=== PATIENT | female | born 1935 | race Caucasian/White ===

== ENCOUNTER 2018-03-03 14:13 | Emergency (ER) | payer MEDICARE, BC ==
[2018-03-03 14:22] VITALS: PULSE 98
--- NOTE | 2018-03-03 15:09 | ED ---
Fall HPI - General Chief Complaint: Fall Stated Complaint: fall/hit head Time Seen by Provider: 03/03/18 14:59 Source: patient Mode of arrival: ambulatory - History of Present Illness Initial Comments: This a pleasant 83-year-old female who fell in her garage at home after tripping and struck the back of her head on cement. Patient had no loss of consciousness, no vomiting episodes, patient recalls the entire event. There is no amnesia. Patient denies any significant headache but does have a swollen area on her scalp. Patient denies any neck pain. No chest pain or shortness of breath. No abdominal pain. No arm or leg pain. Patient states she did bump her hip has no pain in that area. Patient ambulatory without difficulty. Patient was able get up on her own. Patient here with a daughter who brought her here for a checkup. Patient does take a daily aspirin. Patient denies any vision or hearing disturbance. No paresthesias. - Related Data Home Medications Medication Instructions Recorded Confirmed Levothyroxine Sodium [Synthroid] 88 mcg PO DAILY 09/17/14 03/03/18 Ubidecarenone [Co Q-10] 1 tab PO DAILY 09/17/14 03/03/18 Aspirin 81 mg PO DAILY 05/03/15 03/03/18 Calcium Carbonate [Calcium] 600 mg PO DAILY 05/03/15 03/03/18 Lisinopril-Hctz 10-12.5 mg 1 tab PO DAILY 05/03/15 03/03/18 [Zestoretic 10-12.5] Cholecalciferol [Vitamin D3] 400 unit PO DAILY@1200 05/04/15 03/03/18 Multivitamins, Thera [Multivitamin 1 tab PO DAILY@1200 05/04/15 03/03/18 (formulary)] Allergies Allergy/AdvReac Type Severity Reaction Status Date / Time Sulfa (Sulfonamide Allergy Unknown Verified 03/03/18 14:57 Antibiotics) Iodinated Contrast- Oral and AdvReac Abdominal Verified 03/03/18 14:57 IV Dye Pain [Iodinated Contrast Media - IV Dye] shellfish derived AdvReac Abdominal Verified 03/03/18 14:57 Pain Review of Systems ROS Statement: Those systems with pertinent positive or pertinent negative responses have been documented in the HPI. ROS Other: All systems not noted in ROS Statement are negative. Past Medical History Past Medical History: Dementia, GERD/Reflux, Hyperlipidemia, Hypertension, Thyroid Disorder Additional Past Medical History / Comment(s): mobitz type 2 second degree heart block, vertigo other hx per old chart: incont of urine, hiatal hernia, rectocele /cystocele, MURMUR, MITRAL REGURGITATION,HIATAL HERNIA,EARLY DEMENTIA, DIVERTICULAR DISEASE, WAS TOLD 2 YEARS AGO HAD VERY BEGINNINGS OF GLAUCOMA History of Any Multi-Drug Resistant Organisms: None Reported Past Surgical History: Bladder Surgery, Heart Catheterization, Hysterectomy Past Anesthesia/Blood Transfusion Reactions: No Reported Reaction Additional Past Anesthesia/Blood Transfusion Reaction / Comment(s): 40 YEARS AGO BLOOD TRANSFUSION AFTER CHILDBIRTH, VERTIGO Past Psychological History: No Psychological Hx Reported Smoking Status: Never smoker Past Alcohol Use History: None Reported Past Drug Use History: None Reported Additional History: Reviewed - Past Family History Father Family Medical History: Cancer Additional Family Medical History / Comment(s): COLON CANCER Mother Family Medical History: Congestive Heart Failure (CHF), Myocardial Infarction ( [place]) General Exam - General Exam Comments Initial Comments: Well-developed, well-nourished 83-year-old female in no acute distress Limitations: no limitations General appearance: alert, in no apparent distress Head exam: Present: other (Patient does have a scalp hematoma noted to the vertex of her scalp near the occipital area. There is no break in skin integrity. Patient has no crepitus or step-off. Remainder of the head is normocephalic/atraumatic) Eye exam: Present: normal appearance, PERRL, EOMI. Absent: scleral icterus, conjunctival injection, periorbital swelling, periorbital tenderness ENT exam: Present: normal exam, normal oropharynx, mucous membranes moist, TM's normal bilaterally. Absent: normal external ear exam Neck exam: Present: normal inspection. Absent: tenderness, meningismus, lymphadenopathy Respiratory exam: Present: normal lung sounds bilaterally. Absent: respiratory distress, wheezes, rales, rhonchi, stridor Cardiovascular Exam: Present: regular rate, normal rhythm, normal heart sounds. Absent: systolic murmur, diastolic murmur, rubs, gallop, clicks GI/Abdominal exam: Present: soft, normal bowel sounds. Absent: distended, tenderness, guarding, rebound, rigid Extremities exam: Present: normal inspection, full ROM, normal capillary refill. Absent: tenderness, pedal edema, joint swelling, calf tenderness Back exam: Present: normal inspection Neurological exam: Present: alert, oriented X3, CN II-XII intact, normal gait, other (Finger to nose and heel to correia are normal. No pronator drift). Absent : altered, abnormal gait, motor sensory deficit Psychiatric exam: Present: normal affect, normal mood Skin exam: Present: warm, dry, intact, normal color. Absent: rash Course Vital Signs 03/03/18 14:16 Temperature 97.3 F L Pulse Rate 98 Respiratory 20 Rate Blood Pressure 195/88 O2 Sat by Pulse 98 Oximetry - Reevaluation(s) Reevaluation #1: 03/03/18 16:20 Patient stable, neurologically intact, no distress Medical Decision Making - Medical Decision Making Computed tomography scan of the brain and cervical spine reveals no acute pathology--other than the scalp hematoma.. There is a questionable thyroid nodule on the left Return and follow-up parameters discussed Disposition Clinical Impression: Closed head injury without loss of consciousness, Hematoma of scalp, Thyroid nodule Disposition: HOME SELF-CARE Condition: Good Instructions: Fall Prevention for Older Adults (ED), Head Injury (ED) Additional Instructions: Stay with family for the next 24 hours. Return to the ER immediately if any signs or symptoms worsen. Return to the ER at once if the symptoms worsen or problems or difficulties arise. Referrals: Polo Jones MD [Primary Care Provider] - 1-2 days Time of Disposition: 16:21
--- NOTE | 2018-03-03 16:05 | CT ---
EXAMINATION TYPE: CT brain auryine wo con DATE OF EXAM: 03/03/2018 COMPARISON: Brain 05/04/2015 HISTORY: 83-year-old female complains of fall with blow to back of head today. Pain. CT DLP: 1193.1 mGycm Automated exposure control for dose reduction was used. Technique: Examination of the head was done in axial plane without intravenous contrast. Coronal and sagittal reconstructions performed. CT of the cervical spine was obtained in axial plane without intravenous injection of contrast mater ial. Coronal and sagittal reformatted images were obtained from the axial views for evaluation of f ractures, spinal alignment and canal. FINDINGS: Head: There is no evidence of acute intracranial hemorrhage, acute ischemic changes, mass, mass-effect, or extra-axial fluid collection. There is no effacement of cerebral sulci or basal subarachnoid cister ns. There is no hydrocephalus. There is no midline shift. Mott-white matter distinction is preserv ed. There is mild generalized supratentorial volume loss and mild patchy white matter hypodensities in varinder th cerebral hemispheres. There is a posterior scalp contusion along the vertex. No underlying calvarial fracture. Orbits and g lobes are intact. Paranasal sinuses and mastoid air cells are well pneumatized. Cervical spine: No craniocervical junction abnormality, predental space widening, or prevertebral soft tissue swellin g. Normal alignment of the cervical spine. No acute fracture identified. Moderate disc/endplate degenerative change at C5-C6 with disc osteophyte complex contributing to mild spinal canal stenosis. Ayme-mp-qrccikti bilateral neuroforaminal stenosis at this level. Scattered facet and uncovertebral joint degenerative change mid to lower cervical spine. Enlargement of the left lobe of the thyroid gland possibly with an underlying 2.8 cm thyroid nodule. Sagittal and coronal reformatted images confirm above findings. COMBINED IMPRESSION: 1. Scalp contusion along the right posterior vertex. No underlying calvarial fracture or acute intrac ranial abnormality seen. Similar mild atrophy and changes of chronic small vessel ischemic disease. 2. No acute fracture or malalignment of the cervical spine. Moderate spondylotic change at C5-C6. 3. Possible underlying 2.8 cm left thyroid nodule. Dedicated thyroid ultrasound could further evaluat e.
[2018-03-03 16:32] VITALS: BP 162/75; RESP 18; TEMP 96
== END 2018-03-03 16:31 | disposition home or self-care (01) ==
LOC: EC 14:13
DX: S00.03XA Contusion of scalp, initial encounter (principal); E04.1 Nontoxic single thyroid nodule; Z79.82 Long term (current) use of aspirin; Z79.899 Other long term (current) drug therapy; Z88.2 Allergy status to sulfonamides; Z91.041 Radiographic dye allergy status; Z91.013 Allergy to seafood; W10.9XXA Fall (on) (from) unspecified stairs and steps, initial encounter; Y92.009 Unspecified place in unspecified non-institutional (private) residence as the place of occurrence of the external cause
CPT/HCPCS: 70450; 72125; 99283

== ENCOUNTER → 2018-04-13 | Outpatient (CLI) | payer MEDICARE, BC ==
--- NOTE | 2018-04-15 11:57 | P.ARTDOP ---
Arterial Doppler LOWER EXTREMITY ARTERIAL DOPPLER: DATE OF SERVICE: 04/13/2018 Reason for study: Bilateral leg pain. Doppler waveforms: Multiphasic bilaterally throughout. Pulse volume recording: Normal configuration. Pressure gradients: None. Ankle-brachial indices: Greater than 1 bilaterally. Toe pressures: [] on the right, [] on the left Impression: Normal study.
== END | disposition home or self-care (01) ==
LOC: RADUSWWP 10:11
PROVIDERS: ATTEND Family Medicine
DX: M79.604 Pain in right leg (principal); M79.605 Pain in left leg; R25.2 Cramp and spasm
CPT/HCPCS: 93923

== ENCOUNTER 2018-08-07 12:11 | Day surgery (SDC) | payer MEDICARE, BC ==
[2018-08-07 12:44] VITALS: TEMP 98.4
[2018-08-07 13:52] VITALS: BP 150/74; PULSE 76; RESP 16
--- NOTE | 2018-08-07 14:17 | US ---
ULTRASOUND GUIDED FNA THYROID BIOPSY: CLINICAL HISTORY: Request for FNA of 3 left-sided thyroid nodules FINDINGS: The procedure was explained to the patient. The risks, complications, benefits and alternatives were discussed and any questions were answered. Informed consent was obtained. Patient was placed supin e on the ultrasound table and prepped and draped in the usual sterile fashion. Utilizing a 25 gauge needle, five passes were made into the requested 3 left thyroid nodules. Patient was stable throughout the procedure. Pathology is pending. All elements of maximal barrier technique were utilized. IMPRESSION: 1. Successful ultrasound guided FNA thyroid biopsy.
== END 2018-08-07 14:00 | disposition home or self-care (01) ==
LOC: RADPROMAIN 12:11
PROVIDERS: ATTEND Otolaryngology
DX: E04.1 Nontoxic single thyroid nodule (principal)
CPT/HCPCS: 10022; 76942; 88173; 88305

== ENCOUNTER → 2019-05-24 | Outpatient (CLI) | payer MEDICARE, BC ==
[2019-05-24 11:10] LABS: Basophils % (A) 1 %; Eosinophils # (A) 0.2 k/uL (0-0.7); Eosinophils % (A) 3 %; HCT 43.6 % (34.0-46.0); HGB 14.3 gm/dL (11.4-16.0); Lymphocytes # (A) 1.6 k/uL (1.0-4.8); Lymphocytes % (A) 28 %; MCH 28.9 pg (25.0-35.0); MCHC 32.8 g/dL (31.0-37.0); MCV 88.1 fL (80.0-100.0); Mean Platelet Volume 7.4; Monocytes # (A) 0.3 k/uL (0-1.0); Monocytes % (A) 5 %; Neutrophils # (A) 3.4 k/uL (1.3-7.7); Neutrophils % (A) 61 %; Platelet Count 308 k/uL (150-450); RBC 4.95 m/uL (3.80-5.40); RDW 14.8 % (11.5-15.5); WBC 5.6 k/uL (3.8-10.6)
--- NOTE | 2019-05-24 14:04 | XR ---
EXAMINATION TYPE: XR chest 2V DATE OF EXAM: 05/24/2019 COMPARISON: 05/06/2015 HISTORY: Shortness of breath for 4 months TECHNIQUE: Frontal and lateral views of the chest are obtained. FINDINGS: There is no focal air space opacity, pleural effusion, or pneumothorax seen. There is a pa rtial intrathoracic stomach and seen. Multilead left-sided cardiac device is present. The cardiac mello houette size is within normal limits. Increased anterior posterior diameter of the chest an retroster nal airspace relate to underlying COPD. The osseous structures are intact. Mild multilevel degenerati ve changes of the spine are seen. IMPRESSION: No acute cardiopulmonary process. Partial intrathoracic stomach and underlying COPD or c hronic.
== END | disposition home or self-care (01) ==
LOC: RADXRMAIN 09:52
PROVIDERS: ATTEND Nurse Practitioner Adult Health
DX: R06.02 Shortness of breath (principal); E03.9 Hypothyroidism, unspecified; Z91.041 Radiographic dye allergy status
CPT/HCPCS: 36415; 71046; 84443; 85025

== ENCOUNTER 2020-06-26 17:15 | Emergency (ER) | payer MEDICARE, BC ==
[2020-06-26] MEDS ORDERED: MECLIZINE 12.5 MG TAB PO STA (18:03)
[2020-06-26] MEDS ORDERED: SODIUM CHLORIDE 0.9% 500 ML 500 ML IV STA (18:03)
[2020-06-26 18:13] LABS: Basophils # (A) 0.1 k/uL (0-0.2); Basophils % (A) 1 %; Eosinophils # (A) 0.3 k/uL (0-0.7); Eosinophils % (A) 4 %; HCT 45.3 % (34.0-46.0); HGB 14.4 gm/dL (11.4-16.0); Lymphocytes # (A) 1.9 k/uL (1.0-4.8); Lymphocytes % (A) 31 %; MCH 28.5 pg (25.0-35.0); MCHC 31.8 g/dL (31.0-37.0); MCV 89.8 fL (80.0-100.0); Mean Platelet Volume 7.5; Monocytes # (A) 0.4 k/uL (0-1.0); Monocytes % (A) 7 %; Neutrophils # (A) 3.4 k/uL (1.3-7.7); Neutrophils % (A) 55 %; Platelet Count 291 k/uL (150-450); RBC 5.04 m/uL (3.80-5.40); RDW 13.4 % (11.5-15.5); WBC 6.2 k/uL (3.8-10.6)
[2020-06-26 18:14] VITALS: RESP 16
[2020-06-26 18:17] LABS: INR 0.9 (<1.2); Prothrombin Time 9.8 sec (9.0-12.0)
[2020-06-26 18:21] LABS: Albumin 4.3 g/dL (3.5-5.0); Calcium 10.1 mg/dL (8.4-10.2); Total Bilirubin 0.4 mg/dL (0.2-1.3); Total Protein 7.1 g/dL (6.3-8.2)
--- NOTE | 2020-06-26 18:27 | ED ---
Dizziness HPI - General Chief Complaint: Dizziness Stated Complaint: Dizziness Time Seen by Provider: 06/26/20 17:34 Source: patient Mode of arrival: wheelchair Limitations: no limitations - History of Present Illness Initial Comments: 85-year-old female past history of vertigo, heart block with permanent pacemaker placement, hypertension presents emergency room with reported dizziness. Patient states that she had a little bit of room spinning sensation yesterday. She woke this morning and felt well. Took a nap around noon when she woke up from her nap she had significant sensation that she was off balance when she ambulated. Patient reports to a history of vertigo. Last episode was approximately 15 years ago. She does not remember it being this severe. Admits to nausea without vomiting. No recent blunt head trauma. No headaches or vi sual changes. No unilateral numbness or weakness. No history of CVA or TIA. Patient denies any speech difficulties. Patient had sudden onset of symptoms. She has surges in which she takes daily. Denies taking any additional medications for her symptoms. Denies any chest pain or shortness of breath. No fevers or chills. No other alleviating, leasing coordinator modifying factors - Related Data Home Medications Medication Instructions Recorded Confirmed Levothyroxine Sodium [Synthroid] 88 mcg PO DAILY 09/17/14 08/07/18 Ubidecarenone [Co Q-10] 1 tab PO DAILY 09/17/14 08/07/18 Aspirin 81 mg PO DAILY 05/03/15 08/07/18 Calcium Carbonate [Calcium] 600 mg PO DAILY 05/03/15 08/07/18 Lisinopril-Hctz 10-12.5 mg 1 tab PO DAILY 05/03/15 08/07/18 [Zestoretic 10-12.5] Cholecalciferol [Vitamin D3] 400 unit PO DAILY@1200 05/04/15 08/07/18 Multivitamins, Thera [Multivitamin 1 tab PO DAILY@1200 05/04/15 08/07/18 (formulary)] Magnesium 400 mg PO DAILY 07/29/18 08/07/18 Pravastatin Sodium [Pravachol] 40 mg PO HS 08/07/18 08/07/18 Previous Rx's Medication Instructions Recorded Meclizine [Antivert] 12.5 mg PO Q8HR PRN #20 tablet 06/26/20 Allergies Allergy/AdvReac Type Severity Reaction Status Date / Time Sulfa (Sulfonamide Allergy Unknown Verified 06/26/20 17:28 Antibiotics) Iodinated Contrast Media AdvReac Abdominal Verified 06/26/20 17:28 [Iodinated Contrast Media - Pain IV Dye] shellfish derived AdvReac Abdominal Verified 06/26/20 17:28 Pain Review of Systems ROS Statement: Those systems with pertinent positive or pertinent negative responses have been documented in the HPI. ROS Other: All systems not noted in ROS Statement are negative. Past Medical History Past Medical History: Dementia, GERD/Reflux, Hyperlipidemia, Hypertension, Thyroid Disorder Additional Past Medical History / Comment(s): mobitz type 2 second degree heart block, vertigo other hx per old chart: incont of urine, hiatal hernia, rectocele/cystocele, MURMUR, HIATAL HERNIA,EARLY DEMENTIA, WAS TOLD 2 YEARS AGO HAD VERY BEGINNINGS OF GLAUCOMA History of Any Multi-Drug Resistant Organisms: None Reported Past Surgical History: Bladder Surgery, Heart Catheterization, Hysterectomy, Pacemaker Additional Past Surgical History / Comment(s): pacemaker-2014 Past Anesthesia/Blood Transfusion Reactions: No Reported Reaction Additional Past Anesthesia/Blood Transfusion Reaction / Comment(s): 40 YEARS AGO BLOOD TRANSFUSION AFTER CHILDBIRTH, VERTIGO Type of Cardiac Device: Permanent Pacemaker Device Placement Date:: 2014 Past Psychological History: No Psychological Hx Reported Smoking Status: Former smoker Past Alcohol Use History: None Reported Past Drug Use History: None Reported - Past Family History Father Family Medical History: Cancer Additional Family Medical History / Comment(s): COLON CANCER Mother Family Medical History: Congestive Heart Failure (CHF), Myocardial Infarction ([place]) General Exam Limitations: no limitations Course Vital Signs 06/26/20 06/26/20 06/26/20 17:25 18:12 19:28 Temperature 98.3 F Pulse Rate 78 81 Pulse Rate [ 78 Manager Provider Relations ] Respiratory 18 16 Rate Blood Pressure 150/78 163/83 Blood Pressure 155/74 [Left Arm Sitting] Blood Pressure 155/78 [Left Arm Standing] Blood Pressure 154/70 [Left Arm Supine] O2 Sat by Pulse 97 96 Oximetry 06/26/20 19:50 Temperature 98.2 F Pulse Rate 79 Pulse Rate [ Manager Provider Relations ] Respiratory 16 Rate Blood Pressure 141/89 Blood Pressure [Left Arm Sitting] Blood Pressure [Left Arm Standing] Blood Pressure [Left Arm Supine] O2 Sat by Pulse 95 Oximetry EKG Findings - EKG Comments: EKG Findings:: EKG demonstrates atrial sensed ventricularly paced rhythm with a rate of 75. MT interval 138. QRS 170. QTC 495. No acute ST segment elevations or depressions Medical Decision Making - Medical Decision Making Upon arrival patient is placed into room 6. A thorough history and physical exam was performed. Peripheral IV is established. Laboratory studies were conducted. Patient was given a dose of meclizine. CT of the patient's brain was performed without contrast as patient does have a contrast ALLERGY. Laboratory studies demonstrated a creatinine 1.2. She is near the patient's baseline. CT of the patient's brain demonstrates her cerebral atrophy with no acute intracranial process. The patient is reevaluated. She is able to ambulate. Orthostatics were performed which were negative. The patient reports a marked improvement in her symptoms. She feels comfortable going home at this time. Patient provided with a small perception for meclizine. Take medications as directed only for dizziness. Follow-up with her primary care doctor within 2-4 days. Return to emergency room for any new or worsening symptoms. Patient was in agreement with this plan and she was discharged home in good and stable condition - Lab Data Result diagrams: 06/26/20 18:06 06/26/20 18:06 Lab Results 06/26/20 06/26/20 06/26/20 Range/Units 18:06 18:06 18:06 WBC 6.2 (3.8-10.6) k/uL RBC 5.04 (3.80-5.40) m/uL Hgb 14.4 (11.4-16.0) gm/dL Hct 45.3 (34.0-46.0) % MCV 89.8 (80.0-100.0) fL MCH 28.5 (25.0-35.0) pg MCHC 31.8 (31.0-37.0) g/dL RDW 13.4 (11.5-15.5) % Plt Count 291 (150-450) k/uL Neutrophils % 55 % Lymphocytes % 31 % Monocytes % 7 % Eosinophils % 4 % Basophils % 1 % Neutrophils # 3.4 (1.3-7.7) k/uL Lymphocytes # 1.9 (1.0-4.8) k/uL Monocytes # 0.4 (0-1.0) k/uL Eosinophils # 0.3 (0-0.7) k/uL Basophils # 0.1 (0-0.2) k/uL PT 9.8 (9.0-12.0) sec INR 0.9 (<1.2) Sodium 139 (137-145) mmol/L Potassium 4.0 (3.5-5.1) mmol/L Chloride 107 (98-107) mmol/L Carbon Dioxide 23 (22-30) mmol/L Anion Gap 9 mmol/L BUN 27 H (7-17) mg/dL Creatinine 1.23 H (0.52-1.04) mg/dL Est GFR (CKD-EPI)AfAm 46 (>60 ml/min/1.73 sqM) Est GFR (CKD-EPI)NonAf 40 (>60 ml/min/1.73 sqM) Glucose 103 H (74-99) mg/dL Calcium 10.1 (8.4-10.2) mg/dL Total Bilirubin 0.4 (0.2-1.3) mg/dL AST 27 (14-36) U/L ALT 17 (4-34) U/L Alkaline Phosphatase 73 (38-126) U/L Troponin I (0.000-0.034) ng/mL Total Protein 7.1 (6.3-8.2) g/dL Albumin 4.3 (3.5-5.0) g/dL 06/26/20 Range/Units 18:06 WBC (3.8-10.6) k/uL RBC (3.80-5.40) m/uL Hgb (11.4-16.0) gm/dL Hct (34.0-46.0) % MCV (80.0-100.0) fL MCH (25.0-35.0) pg MCHC (31.0-37.0) g/dL RDW (11.5-15.5) % Plt Count (150-450) k/uL Neutrophils % % Lymphocytes % % Monocytes % % Eosinophils % % Basophils % % Neutrophils # (1.3-7.7) k/uL Lymphocytes # (1.0-4.8) k/uL Monocytes # (0-1.0) k/uL Eosinophils # (0-0.7) k/uL Basophils # (0-0.2) k/uL PT (9.0-12.0) sec INR (<1.2) Sodium (137-145) mmol/L Potassium (3.5-5.1) mmol/L Chloride (98-107) mmol/L Carbon Dioxide (22-30) mmol/L Anion Gap mmol/L BUN (7-17) mg/dL Creatinine (0.52-1.04) mg/dL Est GFR (CKD-EPI)AfAm (>60 ml/min/1.73 sqM) Est GFR (CKD-EPI)NonAf (>60 ml/min/1.73 sqM) Glucose (74-99) mg/dL Calcium (8.4-10.2) mg/dL Total Bilirubin (0.2-1.3) mg/dL AST (14-36) U/L ALT (4-34) U/L Alkaline Phosphatase (38-126) U/L Troponin I <0.012 (0.000-0.034) ng/mL Total Protein (6.3-8.2) g/dL Albumin (3.5-5.0) g/dL Disposition Clinical Impression: Vertigo Disposition: HOME SELF-CARE Condition: Stable Instructions (If sedation given, give patient instructions): Vertigo (ED) Additional Instructions: Please follow up with your primary care physician in 2-4 days. Take the medications as directed. Return to the emergency room for any new or worsening symptoms Prescriptions: Meclizine [Antivert] 12.5 mg PO Q8HR PRN #20 tablet PRN Reason: Vertigo Is patient prescribed a controlled substance at d/c from ED?: No Referrals: Polo Jones MD [Primary Care Provider] - 1-2 days Time of Disposition: 19:45
--- NOTE | 2020-06-26 18:41 | CT ---
EXAMINATION TYPE: CT brain wo con DATE OF EXAM: 06/26/2020 COMPARISON: 03/03/2018 HISTORY: Vertigo. CT DLP: 1129.4 mGycm Automated exposure control for dose reduction was used. There is mild cerebral atrophy. There is no mass effect nor midline shift. There is no sign of intrac ranial hemorrhage. The calvarium is intact. Skull base is intact. There is normal aeration of the mas toid sinuses. IMPRESSION: Cerebral atrophy. No acute intracranial abnormality. No change.
[2020-06-26] MEDS ORDERED: amLODIPine 5 MG TAB PO STA (18:55)
[2020-06-26] MEDS ORDERED: ONDANSETRON ODT 4 MG TAB PO STA (19:42)
[2020-06-26 20:00] VITALS: BP 141/89; PULSE 79; TEMP 98.2
== END 2020-06-26 20:02 | disposition home or self-care (01) ==
LOC: EC 17:15
DX: R42 Dizziness and giddiness (principal); R11.0 Nausea; G31.9 Degenerative disease of nervous system, unspecified; I10 Essential (primary) hypertension; E78.5 Hyperlipidemia, unspecified; E07.9 Disorder of thyroid, unspecified; Z91.041 Radiographic dye allergy status; Z79.890 Hormone replacement therapy; Z79.82 Long term (current) use of aspirin; Z79.899 Other long term (current) drug therapy; Z88.2 Allergy status to sulfonamides; Z91.013 Allergy to seafood; Z95.0 Presence of cardiac pacemaker
CPT/HCPCS: 36415; 70450; 80053; 84484; 85025; 85610; 93005; 96360; 96361; 99284

== ENCOUNTER 2021-08-14 10:34 | Emergency (ER) | payer MEDICARE, BC ==
[2021-08-14 10:42] VITALS: TEMP 96.7
--- NOTE | 2021-08-14 12:01 | XR ---
EXAMINATION TYPE: XR Hip RT and AP Pelvis DATE OF EXAM: 08/14/2021 COMPARISON: None HISTORY: Pain TECHNIQUE: AP pelvis and two-view right hip FINDINGS: Femoral head articulates with the acetabulum. No acute fracture or dislocation of the right hip is evident. Joint space appears preserved. Sacroiliac joints and symphysis pubis appear normal. Left femoral head articulates with the acetabulu m. No pelvic fractures are evident. IMPRESSION: 1. Normal right hip. CT can be performed for sufficient clinical suspicion.
--- NOTE | 2021-08-14 12:24 | XR ---
EXAMINATION TYPE: XR thoracic spine complete DATE OF EXAM: 08/14/2021 COMPARISON: None HISTORY: Pain TECHNIQUE: 3 views thoracic spine FINDINGS: 12 thoracic type vertebral bodies. On some pedicles are obscured by artifact and limited pe netration. Pedicles otherwise appear intact. There is exaggeration of the thoracic kyphosis. Vertebra l body heights are preserved. Mild diffuse disc space narrowing is present greater in the mid thorac ic spine. IMPRESSION: 1. Thoracic kyphosis. 2. Degenerative disc changes.
--- NOTE | 2021-08-14 12:26 | XR ---
EXAMINATION TYPE: XR lumbar spine 2 or 3V DATE OF EXAM: 08/14/2021 COMPARISON: None HISTORY: Pain TECHNIQUE: 3 view lumbar spine FINDINGS: There are 5 lumbar-type vertebral bodies. Pedicles are intact. Degenerative disc changes ar e present L4-5 and posteriorly at L3-4. Degenerative disc changes are present L2-3. There may be of g rade 1 spondylolisthesis of L2 posterior on L3 and minimal L3 posterior on L4. Some minimal anterior listhesis of L4 anteriorly on L5 may be present. Vascular calcifications within the aorta. Vertebral body heights are preserved. IMPRESSION: 1. Minimal grade 1 spondylolisthesis posteriorly at L2-3 L3-4 and anteriorly at L4-5. 2. Degenerative disc changes.
--- NOTE | 2021-08-14 12:41 | ED ---
General Adult HPI - General Chief complaint: Fall Stated complaint: Slip/Fall Time Seen by Provider: 08/14/21 10:48 Source: patient Mode of arrival: ambulatory Limitations: no limitations - History of Present Illness Initial comments: 86-year-old female presents to the emergency room for a chief complaint of fall. Patient slipped when getting out of the shower today and fell backwards. She hit her back on the edge of the shower. She did not hit her head. At this time she has no pain but did have to call EMS to be lifted off the floor and they re commended she be evaluated. Her daughter also states she fell several days ago onto the right hip when she tripped over her feet but the pain is since resolved. Daughter is still requesting that this be evaluated. Patient does not take blood thinners. Denies any abdominal pain. No loss of consciousness. No lightheadedness or dizziness preceding the fall.Patient has no other complaints at this time including shortness of breath, chest pain, abdominal pain, nausea or vomiting, headache, or visual changes. - Related Data Home Medications Medication Instructions Recorded Confirmed Levothyroxine Sodium [Synthroid] 88 mcg PO DAILY 09/17/14 08/07/18 Ubidecarenone [Co Q-10] 1 tab PO DAILY 09/17/14 08/07/18 Aspirin 81 mg PO DAILY 05/03/15 08/07/18 Calcium Carbonate [Calcium] 600 mg PO DAILY 05/03/15 08/07/18 Lisinopril-Hctz 10-12.5 mg 1 tab PO DAILY 05/03/15 08/07/18 [Zestoretic 10-12.5] Cholecalciferol [Vitamin D3 (10 400 unit PO DAILY@1200 05/04/15 08/07/18 Mcg = 400 Iu)] Multivitamins, Thera [Multivitamin 1 tab PO DAILY@1200 05/04/15 08/07/18 (formulary)] Magnesium 400 mg PO DAILY 07/29/18 08/07/18 Pravastatin Sodium [Pravachol] 40 mg PO HS 08/07/18 08/07/18 Previous Rx's Medication Instructions Recorded Meclizine [Antivert] 12.5 mg PO Q8HR PRN #20 tablet 06/26/20 Allergies Allergy/AdvReac Type Severity Reaction Status Date / Time Sulfa (Sulfonamide Allergy Unknown Verified 08/14/21 10:42 Antibiotics) Iodinated Contrast Media AdvReac Abdominal Verified 08/14/21 10:42 [Iodinated Contrast Media - Pain IV Dye] shellfish derived AdvReac Abdominal Verified 08/14/21 10:42 Pain Review of Systems ROS Statement: Those systems with pertinent positive or pertinent negative responses have been documented in the HPI. ROS Other: All systems not noted in ROS Statement are negative. Past Medical History Past Medical History: Dementia, GERD/Reflux, Hyperlipidemia, Hypertension, Thyroid Disorder Additional Past Medical History / Comment(s): mobitz type 2 second degree heart block, vertigo other hx per old chart: incont of urine, hiatal hernia, rectocele/cystocele, MURMUR, HIATAL HERNIA,EARLY DEMENTIA, WAS TOLD 2 YEARS AGO HAD VERY BEGINNINGS OF GLAUCOMA History of Any Multi-Drug Resistant Organisms: None Reported Past Surgical History: Bladder Surgery, Heart Catheterization, Hysterectomy, Pacemaker Additional Past Surgical History / Comment(s): pacemaker-2014 Past Anesthesia/Blood Transfusion Reactions: No Reported Reaction Additional Past Anesthesia/Blood Transfusion Reaction / Comment(s): 40 YEARS AGO BLOOD TRANSFUSION AFTER CHILDBIRTH, VERTIGO Type of Cardiac Device: Permanent Pacemaker Device Placement Date:: 2014 Past Psychological History: No Psychological Hx Reported Smoking Status: Former smoker Past Alcohol Use History: None Reported Past Drug Use History: None Reported - Past Family History Father Family Medical History: Cancer Additional Family Medical History / Comment(s): COLON CANCER Mother Family Medical History: Congestive Heart Failure (CHF), Myocardial Infarction ([place]) General Exam Limitations: no limitations General appearance: alert, in no apparent distress Head exam: Present: atraumatic Eye exam: Present: normal appearance, PERRL, EOMI. Absent: scleral icterus, conjunctival injection ENT exam: Present: normal exam, mucous membranes moist Neck exam: Present: normal inspection, full ROM. Absent: tenderness Respiratory exam: Present: normal lung sounds bilaterally. Absent: respiratory distress, wheezes Cardiovascular Exam: Present: regular rate, normal rhythm, normal heart sounds GI/Abdominal exam: Present: soft, normal bowel sounds. Absent: distended, tenderness Extremities exam: Present: other (Moving all extremities, no signs of trauma.) Back exam: Absent: CVA tenderness (R), CVA tenderness (L), paraspinal tenderness, vertebral tenderness Neurological exam: Present: alert Course Vital Signs 08/14/21 10:38 Temperature 96.7 F L Pulse Rate 70 Respiratory 20 Rate Blood Pressure 167/67 Medical Decision Making - Medical Decision Making Vitals are stable. Patient is well-appearing. HPI and physical exam as documented. No ecchymosis on the back. Mild scrape noted. Patient denying any pain upon arrival, resting comfortably. It was recommended that she be evaluated via EMS. X-ray of the hip and pelvis are normal. Patient is able to ambulate on the right hip, CT not warranted at this time. 6 spine x-ray shows degenerative disc disease. No acute fractures. Lumbar spine x-ray shows degenerative disc disease, and no fractures. Patient again reevaluated, continues to have no pain. She was not given any pain meds here in the emergency room. She thinks she may have been given a pain medication by EMS but is not sure. I did ambulate patient without difficulty. Patient did not have any pain with this. Patient is stable for discharge home. She lives next door to her son who will help her. She will follow up with her doctor and return here for any worsening symptoms. Disposition Clinical Impression: Fall, Back pain Disposition: HOME SELF-CARE Condition: Good Instructions (If sedation given, give patient instructions): Back Pain (ED), Fall Prevention (ED) Additional Instructions: Please take Tylenol for pain. Follow-up with your doctor in one to 2 days. Return to the emergency room for any worsening symptoms. Is patient prescribed a controlled substance at d/c from ED?: No Referrals: Polo Jones MD [Primary Care Provider] - 1-2 days Time of Disposition: 13:04
[2021-08-14 13:33] VITALS: BP 178/72; PULSE 78; RESP 18
== END 2021-08-14 13:32 | disposition home or self-care (01) ==
LOC: EC 10:34
DX: M54.9 Dorsalgia, unspecified (principal); I10 Essential (primary) hypertension; E07.9 Disorder of thyroid, unspecified; E78.5 Hyperlipidemia, unspecified; Z87.891 Personal history of nicotine dependence; Z88.8 Allergy status to other drugs, medicaments and biological substances; Z91.013 Allergy to seafood; Z88.2 Allergy status to sulfonamides; Z79.890 Hormone replacement therapy; Z79.82 Long term (current) use of aspirin; Z79.899 Other long term (current) drug therapy; W01.0XXA Fall on same level from slipping, tripping and stumbling without subsequent striking against object, initial encounter; Y92.091 Bathroom in other non-institutional residence as the place of occurrence of the external cause; Y93.E1 Activity, personal bathing and showering
CPT/HCPCS: 72072; 72100; 73502; 99284

== ENCOUNTER 2021-11-08 14:23 | Observation (INO) | payer MEDICARE, BC ==
--- NOTE | 2021-11-08 15:52 | ED ---
General Adult HPI - General Chief complaint: Fall Stated complaint: Fall Time Seen by Provider: 11/08/21 15:15 Source: patient, family Mode of arrival: EMS Limitations: no limitations - History of Present Illness Initial comments: Dictation was produced using [employer] dictation software. please excuse any grammatical, word or spelling errors. Chief Complaint: 86-year-old female presents after fall History of Present Illness: Patient is an 86-year-old female she fell yesterday. Patient lives by herself. She lives in a space that is 30 feet behind her son's house however she resides by herself. Patient allegedly fell yesterday. She does not remember the fall. Patient has history of dementia. Unclear why patient fell. Daughter is at the bedside suspect that patient has been on the ground for 2-3 hours yesterday. Patient has history of chronic back pain that feels worse after the fall. Denies any head pain. No arm or extremity pain. No abdominal pain. No nausea vomiting. Denies any head or neck pain. Daughters are concerned because patient had fallen 3 times in the last year. She states that she has back pain to her upper lumbar lower thoracic area. It feels mostly at baseline but she felt it was worse after the fall. The ROS documented in this emergency department record has been reviewed and confirmed by me. Those systems with pertinent positive or negative responses have been documented in the HPI. All other systems are other negative and/or noncontributory. PHYSICAL EXAM: General Impression: Alert and oriented x3, not in acute distress HEENT: Normocephalic atraumatic, extra-ocular movements intact, pupils equal and reactive to light bilaterally, mucous membranes moist. Cardiovascular: Heart regular rate and rhythm Chest: Able to complete full sentences, no retractions, no tachypnea Abdomen: abdomen soft, non-tender, non-distended, no organomegaly Musculoskeletal: Pulses present and equal in all extremities, no peripheral edema, palpatory tenderness to the lower back Motor: no focal deficits noted Neurological: CN II-XII grossly intact, no focal motor or sensory deficits noted Skin: Intact with no visualized rashes Psych: Normal affect and mood ED course: 86-year-old female presents after fall. She fell yesterday. Vital signs upon arrival are within acceptable limits. EKG interpretation: Ventricular rate 76, atrial paced rhythm, DE interval 160, QRS 160, QTc 540. No DE prolongation, no QTC prolongation, no ST or T-wave changes noted. EKG compared to 06/26/2020 showing no changes. Overall, this EKG is unremarkable Laboratory evaluation obtained. Mild leukocytosis 12.5 likely secondary to stress. Coag panel is negative. Metabolic panel is within acceptable limits. Troponin is elevated 0.039. Patient does not have a history of elevated troponins. Chest x-ray and pelvis x-ray shows no acute processes. Computed tomography scan of the head and C-spine and thoracic and lumbar spine shows no traumatic injuries. Patient reevaluated at bedside at 7:00 VFIB stable medical condition. Patient does not have a chest pain or shortness of breath however she does have elevated troponin. This was unclear what's causing patient's elevated troponin. Given patient's age and concern of possible syncope given unwitnessed fall patient be admitted for cardiac monitoring. Patient and family member at bedside are agreeable with plan. Case discussed with son physician group was went except patient's care. - Related Data Home Medications Medication Instructions Recorded Confirmed Levothyroxine Sodium [Synthroid] 88 mcg PO DAILY 09/17/14 11/08/21 Ubidecarenone [Co Q-10] 100 mg PO DAILY 09/17/14 11/08/21 Aspirin 81 mg PO DAILY 05/03/15 11/08/21 Lisinopril-Hctz 10-12.5 mg 1 tab PO DAILY 05/03/15 11/08/21 [Zestoretic 10-12.5] Multivitamins, Thera [Multivitamin 1 tab PO DAILY 05/04/15 11/08/21 (formulary)] Pravastatin Sodium [Pravachol] 40 mg PO Q48H 08/07/18 11/08/21 Cetirizine HCl 10 mg PO DAILY 11/08/21 11/08/21 Cholecalciferol [Vitamin D3 (25 25 mcg PO DAILY 11/08/21 11/08/21 Mcg = 1000 Iu)] Escitalopram [Lexapro] 5 mg PO DAILY 11/08/21 11/08/21 Allergies Allergy/AdvReac Type Severity Reaction Status Date / Time Sulfa (Sulfonamide Allergy Unknown Verified 11/08/21 17:36 Antibiotics) Iodinated Contrast Media AdvReac Abdominal Verified 11/08/21 17:36 [Iodinated Contrast Media - Pain IV Dye] shellfish derived AdvReac Abdominal Verified 11/08/21 17:36 Pain Review of Systems ROS Statement: Those systems with pertinent positive or pertinent negative responses have been documented in the HPI. ROS Other: All systems not noted in ROS Statement are negative. Past Medical History Past Medical History: Dementia, GERD/Reflux, Hyperlipidemia, Hypertension, Thyroid Disorder Additional Past Medical History / Comment(s): mobitz type 2 second degree heart block, vertigo other hx per old chart: incont of urine, hiatal hernia, rectocele/cystocele, MURMUR, HIATAL HERNIA,EARLY DEMENTIA, WAS TOLD 2 YEARS AGO HAD VERY BEGINNINGS OF GLAUCOMA History of Any Multi-Drug Resistant Organisms: None Reported Past Surgical History: Bladder Surgery, Heart Catheterization, Hysterectomy, Pacemaker Additional Past Surgical History / Comment(s): pacemaker-2014 Past Anesthesia/Blood Transfusion Reactions: No Reported Reaction Additional Past Anesthesia/Blood Transfusion Reaction / Comment(s): 40 YEARS AGO BLOOD TRANSFUSION AFTER CHILDBIRTH, VERTIGO Type of Cardiac Device: Permanent Pacemaker Device Placement Date:: 2014 Past Psychological History: No Psychological Hx Reported Smoking Status: Former smoker Past Alcohol Use History: None Reported Past Drug Use History: None Reported - Past Family History Father Family Medical History: Cancer Additional Family Medical History / Comment(s): COLON CANCER Mother Family Medical History: Congestive Heart Failure (CHF), Myocardial Infarction ([place]) General Exam Limitations: no limitations Course Vital Signs 11/08/21 14:34 Temperature 97.5 F L Pulse Rate 76 Respiratory 18 Rate Blood Pressure 180/78 O2 Sat by Pulse 99 Oximetry Medical Decision Making - Lab Data Result diagrams: 11/08/21 16:01 11/08/21 16:01 Lab Results 11/08/21 11/08/21 11/08/21 Range/Units 16:01 16:01 16:01 WBC 12.5 H (3.8-10.6) k/uL RBC 4.90 (3.80-5.40) m/uL Hgb 14.0 (11.4-16.0) gm/dL Hct 43.4 (34.0-46.0) % MCV 88.7 (80.0-100.0) fL MCH 28.5 (25.0-35.0) pg MCHC 32.2 (31.0-37.0) g/dL RDW 13.7 (11.5-15.5) % Plt Count 308 (150-450) k/uL MPV 7.6 Neutrophils % 86 % Lymphocytes % 7 % Monocytes % 5 % Eosinophils % 1 % Basophils % 0 % Neutrophils # 10.7 H (1.3-7.7) k/uL Lymphocytes # 0.9 L (1.0-4.8) k/uL Monocytes # 0.6 (0-1.0) k/uL Eosinophils # 0.1 (0-0.7) k/uL Basophils # 0.0 (0-0.2) k/uL PT 10.1 (9.0-12.0) sec INR 0.9 (<1.2) APTT 22.1 (22.0-30.0) sec Sodium 138 (137-145) mmol/L Potassium 4.1 (3.5-5.1) mmol/L Chloride 106 (98-107) mmol/L Carbon Dioxide 23 (22-30) mmol/L Anion Gap 9 mmol/L BUN 25 H (7-17) mg/dL Creatinine 1.06 H (0.52-1.04) mg/dL Est GFR (CKD-EPI)AfAm 55 (>60 ml/min/1.73 sqM) Est GFR (CKD-EPI)NonAf 48 (>60 ml/min/1.73 sqM) Glucose 121 H (74-99) mg/dL Calcium 9.9 (8.4-10.2) mg/dL Magnesium 1.9 (1.6-2.3) mg/dL Total Bilirubin 1.0 (0.2-1.3) mg/dL AST 49 H (14-36) U/L ALT 19 (4-34) U/L Alkaline Phosphatase 66 (38-126) U/L Creatine Kinase 665 H (30-135) U/L Troponin I (0.000-0.034) ng/mL Total Protein 6.8 (6.3-8.2) g/dL Albumin 3.8 (3.5-5.0) g/dL 11/08/21 Range/Units 16:01 WBC (3.8-10.6) k/uL RBC (3.80-5.40) m/uL Hgb (11.4-16.0) gm/dL Hct (34.0-46.0) % MCV (80.0-100.0) fL MCH (25.0-35.0) pg MCHC (31.0-37.0) g/dL RDW (11.5-15.5) % Plt Count (150-450) k/uL MPV Neutrophils % % Lymphocytes % % Monocytes % % Eosinophils % % Basophils % % Neutrophils # (1.3-7.7) k/uL Lymphocytes # (1.0-4.8) k/uL Monocytes # (0-1.0) k/uL Eosinophils # (0-0.7) k/uL Basophils # (0-0.2) k/uL PT (9.0-12.0) sec INR (<1.2) APTT (22.0-30.0) sec Sodium (137-145) mmol/L Potassium (3.5-5.1) mmol/L Chloride (98-107) mmol/L Carbon Dioxide (22-30) mmol/L Anion Gap mmol/L BUN (7-17) mg/dL Creatinine (0.52-1.04) mg/dL Est GFR (CKD-EPI)AfAm (>60 ml/min/1.73 sqM) Est GFR (CKD-EPI)NonAf (>60 ml/min/1.73 sqM) Glucose (74-99) mg/dL Calcium (8.4-10.2) mg/dL Magnesium (1.6-2.3) mg/dL Total Bilirubin (0.2-1.3) mg/dL AST (14-36) U/L ALT (4-34) U/L Alkaline Phosphatase (38-126) U/L Creatine Kinase (30-135) U/L Troponin I 0.039 H* (0.000-0.034) ng/mL Total Protein (6.3-8.2) g/dL Albumin (3.5-5.0) g/dL Disposition Clinical Impression: Elevated troponin Disposition: ADMITTED IP TO THIS [facility] Condition: Fair Referrals: Polo Jones MD [Primary Care Provider] - 1-2 days
[2021-11-08 16:12] LABS: Basophils % (A) 0 %; Eosinophils # (A) 0.1 k/uL (0-0.7); Eosinophils % (A) 1 %; HCT 43.4 % (34.0-46.0); Lymphocytes # (A) 0.9 k/uL (1.0-4.8); Lymphocytes % (A) 7 %; MCH 28.5 pg (25.0-35.0); MCHC 32.2 g/dL (31.0-37.0); MCV 88.7 fL (80.0-100.0); Mean Platelet Volume 7.6; Monocytes # (A) 0.6 k/uL (0-1.0); Monocytes % (A) 5 %; Neutrophils # (A) 10.7 k/uL (1.3-7.7); Neutrophils % (A) 86 %; Platelet Count 308 k/uL (150-450); RDW 13.7 % (11.5-15.5); WBC 12.5 k/uL (3.8-10.6)
[2021-11-08 16:24] LABS: Albumin 3.8 g/dL (3.5-5.0); Calcium 9.9 mg/dL (8.4-10.2); Magnesium 1.9 mg/dL (1.6-2.3); Total Protein 6.8 g/dL (6.3-8.2)
[2021-11-08 16:25] LABS: INR 0.9 (<1.2); Partial Thromboplastin Time 22.1 sec (22.0-30.0); Prothrombin Time 10.1 sec (9.0-12.0)
[2021-11-08 16:33] LABS: Potassium 4.1 mmol/L (3.5-5.1)
--- NOTE | 2021-11-08 16:51 | XR ---
EXAMINATION TYPE: XR chest 1V DATE OF EXAM: 11/08/2021 COMPARISON: Chest x-ray May 24, 2019 HISTORY: Fall injury with pain. TECHNIQUE: Single frontal view of the chest is obtained. FINDINGS: There is some chronic parenchymal change without suspicious new focal air space opacity, p leural effusion, or pneumothorax seen. The cardiac silhouette size is mildly enlarged with dual lead pacemaker redemonstrated. Retrocardiac opacity consistent with large hiatal hernia again seen. The osseous structures remain demineralized. IMPRESSION: Chronic changes without acute pulmonary process.
--- NOTE | 2021-11-08 16:52 | XR ---
EXAMINATION TYPE: XR pelvis AP view DATE OF EXAM: 11/08/2021 CLINICAL HISTORY: Pain after fall injury. TECHNIQUE: A single AP view of the pelvis is obtained. COMPARISON: Pelvic x-ray August 14, 2021. FINDINGS: There is no acute fracture/dislocation evident in the pelvis. The sacroiliac joints appea r symmetric and within normal limits. [id number] axial joint space loss in both hips is redemon strated. Pubic symphysis is intact. The overlying soft tissue appears unremarkable. IMPRESSION: There is no acute fracture or dislocation in the pelvis. No significant change from prio r.
--- NOTE | 2021-11-08 16:58 | CT ---
EXAMINATION TYPE: CT brain cspine wo con DATE OF EXAM: 11/08/2021 COMPARISON: CT brain June 26, 2020. CT cervical spine March 03, 2018 HISTORY: fall injury with headache and neck pain. CT DLP: 1395.2 mGycm. Automated Exposure Control for Dose Reduction was Utilized. TECHNIQUE: CT scan of the head and cervical spine are performed without contrast. FINDINGS: There is no acute intracranial hemorrhage or midline shift identified. Mild to moderate v entricular and sulcal prominence. Mild low attenuation in the periventricular white matter. The vitaly rium is intact. The globes are intact and the visualized sinuses are clear. Osseous structures are demineralized. Cervical spine is visualized in its entirety from C1 through up per thoracic levels and demonstrates stable and satisfactory alignment without evidence of acute frac ture or dislocation. Prevertebral soft tissue remains within normal limits. The C1-C2 articulation is within normal limits on the coronal images. Vertebral body heights are maintained. Mild to modera te disc space narrowing with posterior spur disc complex effacing the anterior thecal sac at C5-C6 le christian is redemonstrated. Review of axial images show some multilevel uncovertebral facet degenerative changes. There is hetero geneous left thyroid enlargement, suspected left thyroid nodule. Correlate clinically to determine ne ed for further investigation with nonemergent ultrasound. No apical pneumothorax noted. IMPRESSION: 1. There is no acute fracture or dislocation evident in the cervical spine. 2. No acute intracranial hemorrhage or midline shift is seen.
--- NOTE | 2021-11-08 17:01 | CT ---
EXAMINATION TYPE: CT thor lumbar spine wo con DATE OF EXAM: 11/08/2021 COMPARISON: None. HISTORY: fall injury with pain CT DLP: 1641.7 mGycm Automated exposure control for dose reduction was used. FINDINGS: Osseous structures are demineralized. Alignment is satisfactory. No acute displaced fracture is seen. [id number] multilevel anterior spurring in the lower thoracic spine. Mild multilevel disc spac e narrowing. Spinal canal grossly preserved. There is cardiomegaly with dual lead pacemaker. There is large size hiatal hernia redemonstrated. The re is mild to moderate posterior bibasilar linear scarring. Motion artifact makes evaluation of gallb ladder suboptimal. Some diverticula in the visualized portion of the sigmoid colon are present. IMPRESSION: No acute fracture or dislocation in the thoracic or lumbar spine.
[2021-11-08] MEDS ORDERED: ONDANSETRON 4 MG/2 ML VIAL IVP STA (18:38)
[2021-11-08] MEDS ORDERED: MORPHINE SULFATE 4 MG/ML SYRINGE IVP STA (18:38)
[2021-11-08] MEDS ORDERED: ONDANSETRON 4 MG/2 ML VIAL IVP PRN (19:06)
[2021-11-08] MEDS ORDERED: NALOXONE 0.4 MG/ML 1 ML VIAL IV PRN (19:06)
[2021-11-08] MEDS ORDERED: NITROGLYCERIN SL TABS 0.4 MG TAB SUBLINGUAL PRN (19:09)
[2021-11-08] MEDS ORDERED: SODIUM CHLORIDE 0.9% 1,000 ML IV SCH (19:15)
--- NOTE | 2021-11-08 21:49 | P.HPIM ---
History of Present Illness H&P Date: 11/08/21 The patient is an 86-year-old female with a PMH of dementia, status post pacemaker placement, chronic kidney disease, hypertension, hypothyroidism, hyperlipidemia who presents to the emergency room after a fall at home. The history supplemented by the son at the bedside and the daughter via phone. The patient lives in an apartment behind her son's house. Patient reports that she has had 3 falls over the past few months. The patient had a fall in Jul 2021 for which she was brought into the ED, was deemed a mechanical fall, and the patient was discharged home. She was trying to walk from one room to the other when she felt lightheaded and "weak all over" and fell the ground. The patient normally uses a walker but had not been using it today. She denied loss of consciousness or head trauma. He denied experiencing chest discomfort, shortness of breath, palpitations, nausea, diaphoresis. She then was unable to get up off the floor until she was found 3-4 hours later by her son when she wouldn't answer her phone. The daughter states that the patient has not been drinking much water recently due to her urinary frequency. At the time of interview, the patient reported mild lower back pain, which is chronic, and reports feeling essentially back to her baseline. She denied impaired speech, focal weakness, numbness, tingling, headaches. Denied chest discomfort, shortness of breath, abdominal pain, urinary complaints, nausea, vomiting. After evaluation was remarkable for troponin of 0.039, BUN 25, creatinine 1.06, and WBC count 12.5. EKG revealed normal sinus rhythm with a left bundle branch block and left axis deviation at [address] brain and thoracic/lumbar spine were unremarkable with chest and pelvic x-rays also negative for acute abnormalities. Review of systems: Pertinent positives and negatives as discussed in HPI, a complete review of systems was performed and all other systems are negative. Physical examination: General: non toxic, no distress, appears at stated age, obese Derm: no unusual rashes/lesions no unusual ecchymoses, warm, dry Head: atraumatic, normocephalic, symmetric Eyes: EOMI, no lid lag, anicteric sclera, pupils equal round reactive to light ENT: Nose and ears atraumatic, no thrush, no pharyngeal erythema Neck: No thyromegaly, no cervical lymphadenopathy, trachea midline, supple Mouth: no lip lesion, mucus membranes moist Cardiovascular: S1S2 reg, no murmur, positive posterior tibial pulse bilateral, no edema, capillary refill less than 2 seconds Lungs: CTA bilateral, no rhonchi, no rales , no accessory muscle use Abdominal: soft, nontender to palpation, no guarding, no appreciable organomegaly, normal bowel sounds Ext: no gross muscle atrophy, muscle strength 4 out of 5 in all 4 extremities grossly, no contractures, Neuro: CN II-XI grossly intact, light touch intact all 4 extremities, finger to nose within normal limits, Psych: Alert, oriented and place, not oriented to time Assessment/plan Troponin elevation -Suspected secondary to acute stressor -Trend for now -Cardiac monitoring -Cardiology consulted Chronic kidney disease, at baseline Leukocytosis -No signs of active infection at this time -Obtain UA Mild rhabdomyolysis -Likely secondary to fall -Monitor for now Fall, debility -Physical therapy consult DVT prophylaxis -Heparin subcu The patient is admitted with an anticipated less than 2 midnight stay for evaluation of fall CODE STATUS: Full Code Discussed with: Patient, daughter, son (Discussed the patient's goals of care with daughter who noted that the patient has previously filled out advanced care directives and that she is a DNR. She will bring in the paperwork tomorrow) Anticipated discharge date: in am Anticipated discharge place: Home Past Medical History Past Medical History: Dementia, GERD/Reflux, Hyperlipidemia, Hypertension, Thy roid Disorder Additional Past Medical History / Comment(s): mobitz type 2 second degree heart block, vertigo other hx per old chart: incont of urine, hiatal hernia, rectocele/cystocele, MURMUR, HIATAL HERNIA,EARLY DEMENTIA, WAS TOLD 2 YEARS AGO HAD VERY BEGINNINGS OF GLAUCOMA History of Any Multi-Drug Resistant Organisms: None Reported Past Surgical History: Bladder Surgery, Heart Catheterization, Hysterectomy, Pacemaker Additional Past Surgical History / Comment(s): pacemaker-2014 Past Anesthesia/Blood Transfusion Reactions: No Reported Reaction Additional Past Anesthesia/Blood Transfusion Reaction / Comment(s): 40 YEARS AGO BLOOD TRANSFUSION AFTER CHILDBIRTH, VERTIGO Type of Cardiac Device: Permanent Pacemaker Device Placement Date:: 2014 Past Psychological History: No Psychological Hx Reported Smoking Status: Former smoker Past Alcohol Use History: None Reported Past Drug Use History: None Reported - Past Family History Father Family Medical History: Cancer Additional Family Medical History / Comment(s): COLON CANCER Mother Family Medical History: Congestive Heart Failure (CHF), Myocardial Infarction (CT) Medications and Allergies Home Medications Medication Instructions Recorded Confirmed Type Levothyroxine Sodium [Synthroid] 88 mcg PO DAILY 09/17/14 11/08/21 History Ubidecarenone [Co Q-10] 100 mg PO DAILY 09/17/14 11/08/21 History Aspirin 81 mg PO DAILY 05/03/15 11/08/21 History Lisinopril-Hctz 10-12.5 mg 1 tab PO DAILY 05/03/15 11/08/21 History [Zestoretic 10-12.5] Multivitamins, Thera [Multivitamin 1 tab PO DAILY 05/04/15 11/08/21 History (formulary)] Pravastatin Sodium [Pravachol] 40 mg PO Q48H 08/07/18 11/08/21 History Cetirizine HCl 10 mg PO DAILY 11/08/21 11/08/21 History Cholecalciferol [Vitamin D3 (25 25 mcg PO DAILY 11/08/21 11/08/21 History Mcg = 1000 Iu)] Escitalopram [Lexapro] 5 mg PO DAILY 11/08/21 11/08/21 History Allergies Allergy/AdvReac Type Severity Reaction Status Date / Time Sulfa (Sulfonamide Allergy Unknown Verified 11/08/21 17:36 Antibiotics) Iodinated Contrast Media AdvReac Abdominal Verified 11/08/21 17:36 [Iodinated Contrast Media - Pain IV Dye] shellfish derived AdvReac Abdominal Verified 11/08/21 17:36 Pain Physical Exam Vitals: Vital Signs Temp Pulse Resp BP Pulse Ox 11/08/21 20:35 72 15 155/71 97 11/08/21 16:00 72 15 154/71 97 11/08/21 14:34 97.5 F L 76 18 180/78 99 Intake and Output 11/08/21 11/08/21 11/08/21 06:59 14:59 22:59 Other: Weight 86.183 kg Results CBC & Chem 7: 11/08/21 16:01 11/08/21 16:01 Labs: Abnormal Lab Results - Last 24 Hours (Table) 11/08/21 11/08/21 11/08/21 Range/Units 16:01 16:01 16:01 WBC 12.5 H (3.8-10.6) k/uL Neutrophils # 10.7 H (1.3-7.7) k/uL Lymphocytes # 0.9 L (1.0-4.8) k/uL BUN 25 H (7-17) mg/dL Creatinine 1.06 H (0.52-1.04) mg/dL Glucose 121 H (74-99) mg/dL AST 49 H (14-36) U/L Creatine Kinase 665 H (30-135) U/L Troponin I 0.039 H* (0.000-0.034) ng/mL 11/08/21 Range/Units 19:45 WBC (3.8-10.6) k/uL Neutrophils # (1.3-7.7) k/uL Lymphocytes # (1.0-4.8) k/uL BUN (7-17) mg/dL Creatinine (0.52-1.04) mg/dL Glucose (74-99) mg/dL AST (14-36) U/L Creatine Kinase (30-135) U/L Troponin I 0.039 H* (0.000-0.034) ng/mL
[2021-11-09] MEDS: HEPARIN SODIUM,PORCINE/PF 5,000 UNIT/0.5 ML SYRINGE SQ SCH ×2 (00:13→09:39)
[2021-11-09 04:18] LABS: Appearance,Urine Clear (Clear); Bilirubin,Urine Negative (Negative); Blood,Urine Negative (Negative); Color,Urine Yellow; Glucose,Urine (UA) Negative (Negative); Ketones,Urine Negative (Negative); Leukocyte Esterase,Urine Negative (Negative); Nitrite,Urine Negative (Negative); PH, Urine 6.5 (5.0-8.0); Protein,Urine Trace (Negative); Specific Gravity,Urine 1.013 (1.001-1.035); Urobilinogen,Urine <2.0 mg/dL (<2.0)
[2021-11-09 04:52] VITALS: RESP 18
[2021-11-09] MEDS ORDERED: LEVOTHYROXINE 88 MCG TAB PO SCH (06:30)
[2021-11-09 08:01] LABS: HCT 43.5 % (34.0-46.0); HGB 13.8 gm/dL (11.4-16.0); MCH 29.4 pg (25.0-35.0); MCHC 31.6 g/dL (31.0-37.0); MCV 92.9 fL (80.0-100.0); Mean Platelet Volume 8.3; Platelet Count 302 k/uL (150-450); RBC 4.68 m/uL (3.80-5.40); RDW 13.9 % (11.5-15.5); WBC 8.7 k/uL (3.8-10.6)
[2021-11-09 08:20] LABS: African American GFR (CKD) 46 (>60 ml/min/1.73 sqM); Anion Gap 6 mmol/L; Blood Urea Nitrogen 25 mg/dL (7-17); Calcium 10.1 mg/dL (8.4-10.2); Carbon Dioxide 29 mmol/L (22-30); Chloride 105 mmol/L (98-107); Creatine Kinase 725 U/L (30-135); Glucose 127 mg/dL (74-99); Non-African American GFR(CKD) 40 (>60 ml/min/1.73 sqM); Potassium 4.5 mmol/L (3.5-5.1); Sodium 140 mmol/L (137-145)
[2021-11-09] MEDS ORDERED: LISINOPRIL-HCTZ 10-12.5 MG 1 EACH TAB PO SCH (09:00)
[2021-11-09] MEDS ORDERED: ASPIRIN 81 MG PO SCH (09:00)
[2021-11-09] MEDS ORDERED: ESCITALOPRAM 5 MG TAB PO SCH (09:00)
[2021-11-09] MEDS ORDERED: LORATADINE 10 MG TAB PO SCH (09:00)
--- NOTE | 2021-11-09 09:43 | CONS ---
CONSULTATION HISTORY OF PRESENT ILLNESS: Mrs. Kolb is an 86-year-old female with a known history of permanent pacemaker implantation that was performed in 2015 who presented after falls and questionable syncope. The patient has a history of advanced AV block and because of that underwent permanent pacemaker implantation in 2015. She has mild coronary artery disease by cardiac catheterization prior to that, history of hypertension, hyperlipidemia. According to her, she has been complaining of severe back discomfort. Yesterday while trying to walk to her room, she felt quite fatigued and could not stand. She fell to the ground and could not pull herself up. It is unclear if she had full syncopal episode. She came into the emergency room and one of her troponins was minimally elevated and cardiology consultation was requested. She denies any chest discomfort. She denies any dyspnea. She denies any dizziness or palpitations. She has no peripheral edema. No clear PND or orthopnea. Her activity has been limited in the past because of her back discomfort. Her coronary risk factors are positive for hypertension and hyperlipidemia, she is nondiabetic, nonsmoker. MEDICATION: Her medications at home include Zestoretic 10-12.5 mg daily, Lexapro 5 mg daily, , pravastatin 40 mg daily, aspirin once a day, vitamin D, coenzyme Q10, Synthroid 0.88 mg daily. REVIEW OF SYSTEMS: RESPIRATORY system: She has no documented history of wheezing. No recent cough or fever. GI system: No recent nausea or vomiting. No GI bleeding. system: No dysuria or hematuria. NERVOUS SYSTEM: No stroke or seizure. PHYSICAL EXAMINATION: She is an 86-year-old female, alert, sitting up in the chair, no apparent distress. Blood pressure 140/50 with a heart rate in the 80s. HEAD: Normocephalic. Eyes sclerae anicteric. NECK: Good upstroke. No bruit. LUNGS: Clear to auscultation. HEART: Regular rate and rhythm S1, S2. No S3, with systolic ejection murmur at the base, ejection type. No diastolic murmur. No rub. ABDOMEN: Soft, nontender. Positive bowel sounds. No organomegaly. EXTREMITIES: No edema. LAB DATA: Lab data revealed a hemoglobin of 14, BUN and creatinine of 25 and 1.06. Her troponin 0.039, 0.039 and 0.031. Her gotti virus PCR was negative. Her EKG showed a sinus mechanism with possible paced rhythm. Her chest x-ray shows no acute infiltrate. IMPRESSION: 1. Falls related to her back discomfort, unclear if she had a syncope. 2. Mild troponin elevation of unclear etiology. No evidence to suggest acute coronary syndrome. 3. Status post permanent pacemaker implantation with no evidence of pacemaker malfunction. 4. History of hypertension. 5. Hyperlipidemia. RECOMMENDATIONS: From the cardiac standpoint, we will interrogate her device. I will obtain echocardiogram with Doppler. If there is no significant abnormality, then I would not recommend any further cardiac workup. I would expect she should be able to be discharged home soon and followed as an outpatient. MMSIDL / IJN: [id number] /
[2021-11-09 10:42] VITALS: TEMP 98.2
--- NOTE | 2021-11-09 11:46 | ECHOF ---
Referral Reason:cad MEASUREMENTS -------- HEIGHT: 165.1 cm WEIGHT: 85.7 kg BP: 154/69 RVIDd: 3.1 cm (< 3.3) IVSd: 1.9 cm (0.6 - 1.1) LVIDd: 3.3 cm (3.9 - 5.3) LVPWd: 1.6 cm (0.6 - 1.1) IVSs: 2.0 cm LVIDs: 2.4 cm LVPWs: 2.0 cm LAESV Index (A-L): 21.42 ml/m Ao Diam: 3.2 cm (2.0 - 3.7) AV Cusp: 1.8 cm (1.5 - 2.6) MV EXCURSION: 19.171 mm (> 18.000) MV EF SLOPE: 36 mm/s (70 - 150) EPSS: 0.5 cm MV E Merrill: 0.68 m/s MV DecT: 265 ms MV A Merrill: 0.98 m/s MV E/A Ratio: 0.69 AR PHT: 416 ms RAP: 5.00 mmHg RVSP: 31.09 mmHg FINDINGS -------- Sinus rhythm. This was a technically adequate study. The left ventricular size is normal. There is severe concentric left ventricular hypertrophy. Ove rall left ventricular systolic function is low-normal with, an EF between 50 - 55 %. The right ventricle is normal in size. Normal LA size by volume 22+/-6 ml/m2. The right atrium is mildly enlarged. Interatrial and interventricular septum intact. There is mild aortic valve sclerosis. There is mild aortic regurgitation. There is no evidence of aortic stenosis. Mild mitral regurgitation is present. Mild tricuspid regurgitation present. There is no evidence of pulmonary hypertension. The right v entricular systolic pressure, as measured by Doppler, is 31.09mmHg. There is no pulmonic regurgitation present. The aortic root size is normal. IVC Not well visulized. There is no pericardial effusion. CONCLUSIONS -------- 1. The left ventricular size is normal. 2. There is severe concentric left ventricular hypertrophy. 3. Overall left ventricular systolic function is low-normal with, an EF between 50 - 55 %. 4. The right atrium is mildly enlarged. 5. There is mild aortic valve sclerosis. 6. There is mild aortic regurgitation. 7. Mild mitral regurgitation is present. 8. Mild tricuspid regurgitation present. GIS MANAGER: Wendi Carpio RDCS
--- NOTE | 2021-11-09 13:03 | P.DS ---
Providers Date of admission: 11/08/21 19:06 Expected date of discharge: 11/09/21 Attending physician: Wen Guzman MD Consults: 11/08/21 19:07 Consult Physician Routine Consulting Provider: Dianne Cameron Consult Reason/Comments: elevated troponin Do you want consulting provider notified?: Yes Primary care physician: [facility] Course: 86-year-old female with multiple medical problems including hypertension likely dementia history of early evening as status post pacemaker placement was admitted to the hospital for a fall patient doesn't remember exa ctly what happened currently denies any chest pain or shortness of breath insisting he wants to go home During the hospital stay the patient remained stable Constitutional: No acute distress, conversant, pleasant Eyes: Anicteric sclerae, moist conjunctiva, no lid-lag PERRLA ENMT: NC/AT Oropharynx clear, no erythema, exudates Neck: Supple, FROM, no masses, or JVD No carotid bruits No thyromegaly Lungs: Clear to auscultation Clear to percussion Normal respiratory effort, no accessory muscle use Cardiovascular: Heart regular in rate and rhythm, No murmurs, gallops, or rubs No peripheral edema Abdominal: Soft Nontender, no guarding, rebound or rigidity Abdomen moving with respiration Normoactive bowel sounds No hepatomegaly, No splenomegaly No palpable mass No abdominal wall hernia noted Skin: Normal temperature, tone, texture, turgor No induration No subcutaneous nodules No rash, lesions No ulcers Extremities: No digital cyanosis No clubbing Pedal pulses intact and symmetrical Radial pulses intact and symmetrical Normal gait and station No calf tenderness Psychiatric:Alert and oriented to person, place and time Appropriate affect Intact judgement Neuro: Muscles Strength 5/5 in all 4 extremities Sensation to light touch grossly present throughout Cranial nerves II-XII grossly intact No focal sensory deficits Assessment and plan and discharge plan Syncope exact etiology not clear currently no further workup is indicated no evidence of acute coronary syndrome at this time patient doesn't want to stay in the hospital further wants to go home Patient to follow-up with primary care physician Follow-up with cardiology as an outpatient Generalized weakness Likely dementia Hypertension Patient Condition at Discharge: Stable Plan - Discharge Summary Discharge Rx Participant: No New Discharge Prescriptions: Continue Levothyroxine Sodium [Synthroid] 88 mcg PO DAILY Ubidecarenone [Co Q-10] 100 mg PO DAILY Lisinopril-Hctz 10-12.5 mg [Zestoretic 10-12.5] 1 tab PO DAILY Aspirin 81 mg PO DAILY Multivitamins, Thera [Multivitamin (formulary)] 1 tab PO DAILY Pravastatin Sodium [Pravachol] 40 mg PO Q48H Cetirizine HCl 10 mg PO DAILY Cholecalciferol [Vitamin D3 (25 Mcg = 1000 Iu)] 25 mcg PO DAILY Escitalopram [Lexapro] 5 mg PO DAILY Discharge Medication List Levothyroxine Sodium [Synthroid] 88 mcg PO DAILY 09/17/14 [History] Ubidecarenone [Co Q-10] 100 mg PO DAILY 09/17/14 [History] Aspirin 81 mg PO DAILY 05/03/15 [History] Lisinopril-Hctz 10-12.5 mg [Zestoretic 10-12.5] 1 tab PO DAILY 05/03/15 [History] Multivitamins, Thera [Multivitamin (formulary)] 1 tab PO DAILY 05/04/15 [History] Pravastatin Sodium [Pravachol] 40 mg PO Q48H 08/07/18 [History] Cetirizine HCl 10 mg PO DAILY 11/08/21 [History] Cholecalciferol [Vitamin D3 (25 Mcg = 1000 Iu)] 25 mcg PO DAILY 11/08/21 [History] Escitalopram [Lexapro] 5 mg PO DAILY 11/08/21 [History] Follow up Appointment(s)/Referral(s): [facility], [NON-STAFF] - Polo Jones MD [Primary Care Provider] - 1-2 days Activity/Diet/Wound Care/Special Instructions: Home Care can assist with Life Alert set up if needed. Discharge Disposition: HOME WITH HOME HEALTH SERVICES
[2021-11-09 14:18] VITALS: BP 140/68; PULSE 72
[2021-11-09 17:25] LABS: Chol/HDL Ratio 3.31 Ratio; LDL Cholesterol,Calculated 109.3 mg/dL (0.0-131.0)
[2021-11-09] MEDS ORDERED: PRAVASTATIN SODIUM 40 MG TAB PO SCH (21:00)
== END 2021-11-09 15:32 | disposition home health service (06) ==
LOC: EC 14:23 → 3SCARD 19:06
PROVIDERS: ADMIT Internal Medicine; ATTEND Internal Medicine
DX: R55 Syncope and collapse (principal); R53.1 Weakness; I12.9 Hypertensive chronic kidney disease with stage 1 through stage 4 chronic kidney disease, or unspecified chronic kidney disease; N18.9 Chronic kidney disease, unspecified; R77.8 Other specified abnormalities of plasma proteins; G89.29 Other chronic pain; M54.50 Low back pain, unspecified; M54.6 Pain in thoracic spine; E03.9 Hypothyroidism, unspecified; K21.9 Gastro-esophageal reflux disease without esophagitis; E78.5 Hyperlipidemia, unspecified; I44.1 Atrioventricular block, second degree; R42 Dizziness and giddiness; R35.0 Frequency of micturition; R32 Unspecified urinary incontinence; I44.7 Left bundle-branch block, unspecified; D72.829 Elevated white blood cell count, unspecified; M62.82 Rhabdomyolysis; I25.10 Atherosclerotic heart disease of native coronary artery without angina pectoris; I08.3 Combined rheumatic disorders of mitral, aortic and tricuspid valves; E66.9 Obesity, unspecified; Z68.31 Body mass index [BMI] 31.0-31.9, adult; Z20.822 Contact with and (suspected) exposure to COVID-19; Z79.890 Hormone replacement therapy; Z79.82 Long term (current) use of aspirin; Z79.899 Other long term (current) drug therapy; Z88.2 Allergy status to sulfonamides; Z91.041 Radiographic dye allergy status; Z91.013 Allergy to seafood; Y92.009 Unspecified place in unspecified non-institutional (private) residence as the place of occurrence of the external cause; W18.30XA Fall on same level, unspecified, initial encounter; Z90.710 Acquired absence of both cervix and uterus; Z95.0 Presence of cardiac pacemaker; Z87.891 Personal history of nicotine dependence; Z91.81 History of falling; Z66 Do not resuscitate; Z80.0 Family history of malignant neoplasm of digestive organs; Z82.49 Family history of ischemic heart disease and other diseases of the circulatory system
CPT/HCPCS: 96372; 96374; 96375; 99285; 36415; 93005; 93306; 97162; 80061; 80053; 80048; 82550 ×2; 83735; 84484; 85025; 85027; 85610; 85730; 81003; 87635; 72170; 71045; 72128; 72125; 72131; 70450; G0378 ×2; J2270; J2405; J1644

== ENCOUNTER 2022-05-31 08:54 | Emergency (ER) | payer MEDICARE, BC ==
[2022-05-31 08:59] VITALS: TEMP 97.6
--- NOTE | 2022-05-31 09:16 | ED ---
General Adult HPI - General Chief complaint: Weakness Stated complaint: dizziness, falls Time Seen by Provider: 05/31/22 09:08 Source: patient, family, RN notes reviewed Mode of arrival: wheelchair Limitations: no limitations - History of Present Illness Initial comments: Patient is a pleasant 87-year-old female presenting to the emergency Department with daughter with concerns for general weakness. Onset of symptoms was around a month ago. Patient did fall once recently, no injury. Patient has actually had 4 total falls in the past one year. Patient feels lightheaded at times. No confusion. No isolated area of weakness. No spinning type sensation. Legs have been a little bit swollen for the past several weeks. No calf pain. Patient may have some mild exertional dyspnea. - Related Data Home Medications Medication Instructions Recorded Confirmed Levothyroxine Sodium [Synthroid] 88 mcg PO DAILY 09/17/14 11/08/21 Ubidecarenone [Co Q-10] 100 mg PO DAILY 09/17/14 11/08/21 Aspirin 81 mg PO DAILY 05/03/15 11/08/21 Lisinopril-Hctz 10-12.5 mg 1 tab PO DAILY 05/03/15 11/08/21 [Zestoretic 10-12.5] Multivitamins, Thera [Multivitamin 1 tab PO DAILY 05/04/15 11/08/21 (formulary)] Pravastatin Sodium [Pravachol] 40 mg PO Q48H 08/07/18 11/08/21 Cetirizine HCl 10 mg PO DAILY 11/08/21 11/08/21 Cholecalciferol [Vitamin D3 (25 25 mcg PO DAILY 11/08/21 11/08/21 Mcg = 1000 Iu)] Escitalopram [Lexapro] 5 mg PO DAILY 11/08/21 11/08/21 Allergies Allergy/AdvReac Type Severity Reaction Status Date / Time Sulfa (Sulfonamide Allergy Unknown Verified 05/31/22 08:56 Antibiotics) Iodinated Contrast Media AdvReac Abdominal Verified 05/31/22 08:56 [Iodinated Contrast Media - Pain IV Dye] shellfish derived AdvReac Abdominal Verified 05/31/22 08:56 Pain Review of Systems ROS Statement: Those systems with pertinent positive or pertinent negative responses have been documented in the HPI. ROS Other: All systems not noted in ROS Statement are negative. Constitutional: Denies: fever Eyes: Denies: eye pain ENT: Denies: ear pain Respiratory: Reports: as per HPI. Denies: cough Cardiovascular: Reports: edema. Denies: chest pain, orthopnea Endocrine: Reports: fatigue Gastrointestinal: Denies: abdominal pain Genitourinary: Denies: dysuria Musculoskeletal: Denies: back pain Skin: Denies: rash Neurological: Denies: weakness Past Medical History Past Medical History: Dementia, GERD/Reflux, Hyperlipidemia, Hypertension, Thyroid Disorder Additional Past Medical History / Comment(s): mobitz type 2 second degree heart block, vertigo other hx per old chart: incont of urine, hiatal hernia, rectocele/cystocele, MURMUR, HIATAL HERNIA,EARLY DEMENTIA, WAS TOLD 2 YEARS AGO HAD VERY BEGINNINGS OF GLAUCOMA History of Any Multi-Drug Resistant Organisms: None Reported Past Surgical History: Bladder Surgery, Heart Catheterization, Hysterectomy, Pacemaker Additional Past Surgical History / Comment(s): pacemaker-2014 Past Anesthesia/Blood Transfusion Reactions: No Reported Reaction Additional Past Anesthesia/Blood Transfusion Reaction / Comment(s): 40 YEARS AGO BLOOD TRANSFUSION AFTER CHILDBIRTH, VERTIGO Type of Cardiac Device: Permanent Pacemaker Device Placement Date:: 2014 Past Psychological History: No Psychological Hx Reported Smoking Status: Former smoker Past Alcohol Use History: None Reported Past Drug Use History: None Reported - Past Family History Father Family Medical History: Cancer Additional Family Medical History / Comment(s): COLON CANCER Mother Family Medical History: Congestive Heart Failure (CHF), Myocardial Infarction ([place]) General Exam Limitations: no limitations General appearance: alert, in no apparent distress Head exam: Present: normocephalic Eye exam: Present: normal appearance, PERRL, EOMI ENT exam: Present: normal oropharynx Neck exam: Present: normal inspection. Absent: tenderness Respiratory exam: Present: normal lung sounds bilaterally Cardiovascular Exam: Present: regular rate, normal rhythm GI/Abdominal exam: Present: soft. Absent: distended, tenderness Extremities exam: Present: pedal edema. Absent: calf tenderness Neurological exam: Present: alert, CN II-XII intact. Absent: motor sensory deficit Expanded Neurological exam: Present: protecting the airway Speech: Present: fluid speech Cranial nerves: EOM's Intact: Normal Motor strength exam: RUE: 5, LUE: 5, RLE: 5, LLE: 5 Eye Response: (4) open spontaneously Motor Response: (6) obeys commands Verbal Response: (5) oriented Psychiatric exam: Present: normal affect, normal mood Skin exam: Present: normal color Course Vital Signs 05/31/22 05/31/22 05/31/22 08:56 10:17 11:13 Temperature 97.6 F Pulse Rate 71 82 Pulse Rate [ 70 Sitting Bridge Builder] Pulse Rate [ 74 Standing Bridge Builder ] Pulse Rate [ 71 Supine Bridge Builder] Respiratory 16 18 Rate Blood Pressure 161/75 198/85 Blood Pressure 174/75 [Left Arm Sitting] Blood Pressure 168/78 [Left Arm Standing] Blood Pressure 165/70 [Left Arm Supine] O2 Sat by Pulse 95 98 Oximetry EKG Findings - EKG Comments: EKG Findings:: Paced rhythm with a rate of 66. VT 175. QRS 72. QT 462. QTC 475. Left axis. Wide QRS complex. Nonspecific ST-T. Medical Decision Making - Medical Decision Making Patient reevaluated and resting comfortably in bed. Orthostatics reviewed. Patient able to get up and and really without difficulty. Patient and family updated on results and need for follow-up. Patient does request medication for her legs - Lab Data Result diagrams: 05/31/22 09:19 05/31/22 09:19 Lab Results 05/31/22 05/31/22 05/31/22 Range/Units 09:19 09:19 09:19 WBC 6.0 (3.8-10.6) k/uL RBC 4.80 (3.80-5.40) m/uL Hgb 14.1 (11.4-16.0) gm/dL Hct 43.1 (34.0-46.0) % MCV 89.9 (80.0-100.0) fL MCH 29.3 (25.0-35.0) pg MCHC 32.7 (31.0-37.0) g/dL RDW 13.3 (11.5-15.5) % Plt Count 272 (150-450) k/uL MPV 7.6 Neutrophils % 61 % Lymphocytes % 26 % Monocytes % 7 % Eosinophils % 4 % Basophils % 1 % Neutrophils # 3.6 (1.3-7.7) k/uL Lymphocytes # 1.6 (1.0-4.8) k/uL Monocytes # 0.4 (0-1.0) k/uL Eosinophils # 0.2 (0-0.7) k/uL Basophils # 0.1 (0-0.2) k/uL PT 10.5 (9.0-12.0) sec INR 1.0 (<1.2) APTT 22.7 (22.0-30.0) sec Sodium (137-145) mmol/L Potassium (3.5-5.1) mmol/L Chloride (98-107) mmol/L Carbon Dioxide (22-30) mmol/L Anion Gap mmol/L BUN (7-17) mg/dL Creatinine (0.52-1.04) mg/dL Est GFR (CKD-EPI)AfAm (>60 ml/min/1.73 sqM) Est GFR (CKD-EPI)NonAf (>60 ml/min/1.73 sqM) Glucose (74-99) mg/dL Plasma Lactic Acid Luisito (0.7-2.0) mmol/L Calcium (8.4-10.2) mg/dL Magnesium (1.6-2.3) mg/dL Total Bilirubin (0.2-1.3) mg/dL AST (14-36) U/L ALT (4-34) U/L Alkaline Phosphatase (38-126) U/L Troponin I (0.000-0.034) ng/mL NT-Pro-B Natriuret Pep pg/mL Total Protein (6.3-8.2) g/dL Albumin (3.5-5.0) g/dL TSH (0.465-4.680) mIU/L Free T4 (0.78-2.19) ng/dL Free T3 pg/mL (2.8-5.3) pg/ml Urine Color Light Yellow Urine Appearance Clear (Clear) Urine pH 6.5 (5.0-8.0) Ur Specific Murphy 1.005 (1.001-1.035) Urine Protein Negative (Negative) Urine Glucose (UA) Negative (Negative) Urine Ketones Negative (Negative) Urine Blood Negative (Negative) Urine Nitrite Negative (Negative) Urine Bilirubin Negative (Negative) Urine Urobilinogen <2.0 (<2.0) mg/dL Ur Leukocyte Esterase Negative (Negative) 05/31/22 05/31/22 05/31/22 Range/Units 09:19 09:19 09:19 WBC (3.8-10.6) k/uL RBC (3.80-5.40) m/uL Hgb (11.4-16.0) gm/dL Hct (34.0-46.0) % MCV (80.0-100.0) fL MCH (25.0-35.0) pg MCHC (31.0-37.0) g/dL RDW (11.5-15.5) % Plt Count (150-450) k/uL MPV Neutrophils % % Lymphocytes % % Monocytes % % Eosinophils % % Basophils % % Neutrophils # (1.3-7.7) k/uL Lymphocytes # (1.0-4.8) k/uL Monocytes # (0-1.0) k/uL Eosinophils # (0-0.7) k/uL Basophils # (0-0.2) k/uL PT (9.0-12.0) sec INR (<1.2) APTT (22.0-30.0) sec Sodium 140 (137-145) mmol/L Potassium 3.9 (3.5-5.1) mmol/L Chloride 106 (98-107) mmol/L Carbon Dioxide 24 (22-30) mmol/L Anion Gap 10 mmol/L BUN 24 H (7-17) mg/dL Creatinine 1.20 H (0.52-1.04) mg/dL Est GFR (CKD-EPI)AfAm 47 (>60 ml/min/1.73 sqM) Est GFR (CKD-EPI)NonAf 41 (>60 ml/min/1.73 sqM) Glucose 95 (74-99) mg/dL Plasma Lactic Acid Ulisito 1.5 (0.7-2.0) mmol/L Calcium 9.9 (8.4-10.2) mg/dL Magnesium 2.0 (1.6-2.3) mg/dL Total Bilirubin 0.8 (0.2-1.3) mg/dL AST 25 (14-36) U/L ALT 16 (4-34) U/L Alkaline Phosphatase 77 (38-126) U/L Troponin I <0.012 (0.000-0.034) ng/mL NT-Pro-B Natriuret Pep pg/mL Total Protein 6.9 (6.3-8.2) g/dL Albumin 4.1 (3.5-5.0) g/dL TSH 2.800 (0.465-4.680) mIU/L Free T4 1.35 (0.78-2.19) ng/dL Free T3 pg/mL 3.4 (2.8-5.3) pg/ml Urine Color Urine Appearance (Clear) Urine pH (5.0-8.0) Ur Specific Murphy (1.001-1.035) Urine Protein (Negative) Urine Glucose (UA) (Negative) Urine Ketones (Negative) Urine Blood (Negative) Urine Nitrite (Negative) Urine Bilirubin (Negative) Urine Urobilinogen (<2.0) mg/dL Ur Leukocyte Esterase (Negative) 05/31/22 Range/Units 09:19 WBC (3.8-10.6) k/uL RBC (3.80-5.40) m/uL Hgb (11.4-16.0) gm/dL Hct (34.0-46.0) % MCV (80.0-100.0) fL MCH (25.0-35.0) pg MCHC (31.0-37.0) g/dL RDW (11.5-15.5) % Plt Count (150-450) k/uL MPV Neutrophils % % Lymphocytes % % Monocytes % % Eosinophils % % Basophils % % Neutrophils # (1.3-7.7) k/uL Lymphocytes # (1.0-4.8) k/uL Monocytes # (0-1.0) k/uL Eosinophils # (0-0.7) k/uL Basophils # (0-0.2) k/uL PT (9.0-12.0) sec INR (<1.2) APTT (22.0-30.0) sec Sodium (137-145) mmol/L Potassium (3.5-5.1) mmol/L Chloride (98-107) mmol/L Carbon Dioxide (22-30) mmol/L Anion Gap mmol/L BUN (7-17) mg/dL Creatinine (0.52-1.04) mg/dL Est GFR (CKD-EPI)AfAm (>60 ml/min/1.73 sqM) Est GFR (CKD-EPI)NonAf (>60 ml/min/1.73 sqM) Glucose (74-99) mg/dL Plasma Lactic Acid Luisito (0.7-2.0) mmol/L Calcium (8.4-10.2) mg/dL Magnesium (1.6-2.3) mg/dL Total Bilirubin (0.2-1.3) mg/dL AST (14-36) U/L ALT (4-34) U/L Alkaline Phosphatase (38-126) U/L Troponin I (0.000-0.034) ng/mL NT-Pro-B Natriuret Pep 181 pg/mL Total Protein (6.3-8.2) g/dL Albumin (3.5-5.0) g/dL TSH (0.465-4.680) mIU/L Free T4 (0.78-2.19) ng/dL Free T3 pg/mL (2.8-5.3) pg/ml Urine Color Urine Appearance (Clear) Urine pH (5.0-8.0) Ur Specific Murphy (1.001-1.035) Urine Protein (Negative) Urine Glucose (UA) (Negative) Urine Ketones (Negative) Urine Blood (Negative) Urine Nitrite (Negative) Urine Bilirubin (Negative) Urine Urobilinogen (<2.0) mg/dL Ur Leukocyte Esterase (Negative) - Radiology Data Radiology results: report reviewed (CT brain shows no acute abnormality. Age- related atrophy and chronic vessel disease), image reviewed (Chest x-ray shows cardiomegaly and chronic changes) Disposition Clinical Impression: Leg edema, Lightheadedness Disposition: HOME SELF-CARE Condition: Stable Instructions (If sedation given, give patient instructions): Leg Edema (ED), Lightheadedness (ED) Additional Instructions: Please do follow-up with your primary care physician in the next couple days for recheck. Return for falling, increased weakness, increased dizziness, worsening or changing symptoms or other concerns. Is patient prescribed a controlled substance at d/c from ED?: No Referrals: Polo Jones MD [Primary Care Provider] - 1-2 days Time of Disposition: 11:31
[2022-05-31 09:44] LABS: Basophils # (A) 0.1 k/uL (0-0.2); Basophils % (A) 1 %; Eosinophils # (A) 0.2 k/uL (0-0.7); Eosinophils % (A) 4 %; HCT 43.1 % (34.0-46.0); HGB 14.1 gm/dL (11.4-16.0); Lymphocytes # (A) 1.6 k/uL (1.0-4.8); Lymphocytes % (A) 26 %; MCH 29.3 pg (25.0-35.0); MCHC 32.7 g/dL (31.0-37.0); MCV 89.9 fL (80.0-100.0); Mean Platelet Volume 7.6; Monocytes # (A) 0.4 k/uL (0-1.0); Monocytes % (A) 7 %; Neutrophils # (A) 3.6 k/uL (1.3-7.7); Neutrophils % (A) 61 %; Platelet Count 272 k/uL (150-450); RDW 13.3 % (11.5-15.5)
[2022-05-31 09:52] LABS: Partial Thromboplastin Time 22.7 sec (22.0-30.0); Prothrombin Time 10.5 sec (9.0-12.0)
--- NOTE | 2022-05-31 10:01 | CT ---
EXAMINATION TYPE: CT brain wo con DATE OF EXAM: 05/31/2022 COMPARISON: CT brain 11/08/2021 HISTORY: Dizziness, Falls CT DLP: 1158.4 mGycm Automated exposure control for dose reduction was used. Helical imaging through the brain. FINDINGS: Periventricular white matter shows patchy low attenuation. There is no hemorrhage or hydrocephalus. C erebral vascular calcifications are present. Cortical atrophy is stable. Small lipoma present along t he falx noted axial image #39 is stable. The calvarium is intact. Paranasal sinuses and mastoid air c ells as visualized are normal. IMPRESSION: STABLE EXAM, NO ACUTE ABNORMALITY. AGE-RELATED CHANGES OF ATROPHY AND CHRONIC SMALL VESSEL ISCHEMIA S USPECTED.
[2022-05-31 10:05] LABS: Albumin 4.1 g/dL (3.5-5.0); Calcium 9.9 mg/dL (8.4-10.2); Potassium 3.9 mmol/L (3.5-5.1); Total Bilirubin 0.8 mg/dL (0.2-1.3); Total Protein 6.9 g/dL (6.3-8.2)
--- NOTE | 2022-05-31 10:07 | XR ---
EXAMINATION TYPE: XR chest 2V DATE OF EXAM: 05/31/2022 COMPARISON: Chest x-ray November 08, 2021 HISTORY: Weakness. TECHNIQUE: Frontal and lateral views of the chest are obtained. FINDINGS: There is no suspicious new focal air space opacity, pleural effusion, or pneumothorax seen . The cardiac silhouette size is stable and enlarged. There is dual lead pacemaker redemonstrated. Moderate to large size hiatal hernia redemonstrated. The osseous structures are demineralized. IMPRESSION: Cardiomegaly and chronic changes without acute pulmonary process. No significant change from prior.
[2022-05-31 10:21] LABS: T4, Free (Free Thyroxine) 1.35 ng/dL (0.78-2.19)
[2022-05-31 10:36] LABS: Appearance,Urine Clear (Clear); Bilirubin,Urine Negative (Negative); Blood,Urine Negative (Negative); Color,Urine Light Yellow; Glucose,Urine (UA) Negative (Negative); Ketones,Urine Negative (Negative); Leukocyte Esterase,Urine Negative (Negative); Nitrite,Urine Negative (Negative); PH, Urine 6.5 (5.0-8.0); Protein,Urine Negative (Negative); Specific Gravity,Urine 1.005 (1.001-1.035); Urobilinogen,Urine <2.0 mg/dL (<2.0)
[2022-05-31] MEDS ORDERED: FUROSEMIDE 40 MG TAB PO STA (11:31)
[2022-05-31 12:12] VITALS: BP 164/66; PULSE 69; RESP 17
== END 2022-05-31 12:04 | disposition home or self-care (01) ==
LOC: EC 08:54
DX: R51.9 Headache, unspecified (principal); E78.5 Hyperlipidemia, unspecified; I10 Essential (primary) hypertension; E07.9 Disorder of thyroid, unspecified; K21.9 Gastro-esophageal reflux disease without esophagitis; Z79.899 Other long term (current) drug therapy; Z87.891 Personal history of nicotine dependence; Z79.83 Long term (current) use of bisphosphonates; Z88.2 Allergy status to sulfonamides; Z91.041 Radiographic dye allergy status; Z91.013 Allergy to seafood
CPT/HCPCS: 36415; 70450; 71046; 80053; 81003; 83605; 83735; 83880; 84439; 84443; 84481; 84484; 85025; 85610; 85730; 93005; 99284

== ENCOUNTER 2022-06-26 06:52 | Emergency (ER) | payer MEDICARE, BC ==
[2022-06-26] MEDS ORDERED: ASPIRIN 81 MG PO STA (07:25)
[2022-06-26] MEDS ORDERED: KETOROLAC 15 MG/ML 1 ML VIAL IVP STA (07:26)
--- NOTE | 2022-06-26 07:33 | ED ---
General Adult HPI - General Chief complaint: Extremity Problem,Nontraumatic Stated complaint: RT lower leg pain Time Seen by Provider: 06/26/22 07:13 Source: patient, family, RN notes reviewed, old records reviewed Mode of arrival: wheelchair Limitations: no limitations - History of Present Illness Initial comments: Patient is an 87-year-old female with past medical history remarkable for dementia, GERD, hypertension, CHF, second-degree heart block with pacemaker in place who presents emergency Department complaining of right leg pain that is nontraumatic. Has not fallen. Is primarily complaining of pain in the right knee as well as behind the right calf. She is endorsing very mild chronic exertional dyspnea that is irregular and may or may not be more frequent since she stopped her Lasix a few weeks ago for dependent edema and CHF due to w orsening kidney function. However, she states it is no worse than her normal exertional dyspnea which he has had frequently in the past. Was seen a few weeks ago as well, and workup was relatively unremarkable. Denies any recent falls. Denies any headaches. Denies any chest pain. Denies any current shortness of breath. Denies any abdominal pain, nausea, vomiting. Endorses bilateral lower extremity edema which is symmetrical, somewhat chronic. Denies any pelvic pain, lower back pain. Describes the pain as sharp, achy located around the right knee as well as in the posterior right calf. Patient presents with daughters of concern for possible blood clot. Is not on blood thinners. No history of blood clots. Denies any worsening orthopnea. Chronically sleeps in a recliner which is unchanged from baseline. Denies PND. - Related Data Home Medications Medication Instructions Recorded Confirmed Levothyroxine Sodium [Synthroid] 88 mcg PO DAILY 09/17/14 05/31/22 Ubidecarenone [Co Q-10] 100 mg PO DAILY 09/17/14 05/31/22 Aspirin 81 mg PO DAILY 05/03/15 05/31/22 Lisinopril-Hctz 10-12.5 mg 1 tab PO DAILY 05/03/15 05/31/22 [Zestoretic 10-12.5] Multivitamins, Thera [Multivitamin 1 tab PO DAILY 05/04/15 05/31/22 (formulary)] Pravastatin Sodium [Pravachol] 40 mg PO DAILY 08/07/18 05/31/22 Calcium Carbonate [Calcium] 600 mg PO DAILY 05/31/22 05/31/22 Escitalopram Oxalate [Lexapro] 10 mg PO DAILY 05/31/22 05/31/22 Meclizine HCl 12.5 mg PO TID PRN 05/31/22 05/31/22 Allergies Allergy/AdvReac Type Severity Reaction Status Date / Time Sulfa (Sulfonamide Allergy Unknown Verified 06/26/22 06:59 Antibiotics) Iodinated Contrast Media AdvReac Abdominal Verified 06/26/22 06:59 [Iodinated Contrast Media - Pain IV Dye] shellfish derived AdvReac Abdominal Verified 06/26/22 06:59 Pain Review of Systems ROS Statement: Those systems with pertinent positive or pertinent negative responses have been documented in the HPI. Review of Systems: CONST: Denies fever EYES: Denies blurry vision ENT: Denies nasal congestion C/V: Denies Chest pain RESP: Denies shortness of breath GI: Denies abdominal pain : Denies dysuria SKIN: Denies rash. MSK: Endorses right leg pain NEURO: Denies headache ROS Other: All systems not noted in ROS Statement are negative. Past Medical History Past Medical History: Dementia, GERD/Reflux, Hyperlipidemia, Hypertension, Thyroid Disorder Additional Past Medical History / Comment(s): mobitz type 2 second degree heart block, vertigo other hx per old chart: incont of urine, hiatal hernia, rectocele/cystocele, MURMUR, HIATAL HERNIA,EARLY DEMENTIA, WAS TOLD 2 YEARS AGO HAD VERY BEGINNINGS OF GLAUCOMA History of Any Multi-Drug Resistant Organisms: None Reported Past Surgical History: Bladder Surgery, Heart Catheterization, Hysterectomy, Pacemaker Additional Past Surgical History / Comment(s): pacemaker-2014 Past Anesthesia/Blood Transfusion Reactions: No Reported Reaction Additional Past Anesthesia/Blood Transfusion Reaction / Comment(s): 40 YEARS AGO BLOOD TRANSFUSION AFTER CHILDBIRTH, VERTIGO Type of Cardiac Device: Permanent Pacemaker Device Placement Date:: 2014 Past Psychological History: No Psychological Hx Reported Smoking Status: Former smoker Past Alcohol Use History: None Reported Past Drug Use History: None Reported - Past Family History Father Family Medical History: Cancer Additional Family Medical History / Comment(s): COLON CANCER Mother Family Medical History: Congestive Heart Failure (CHF), Myocardial Infarction ([place]) General Exam - General Exam Comments Initial Comments: General: Appears in no acute distress. HEAD: Normal with no signs of head trauma. EYES: PERRLA, EOMI, conjunctiva normal, no discharge. ENT: Hearing grossly intact, normal oropharynx. RESPIRATORY: Clear breath sounds bilaterally. No wheezes, rales, or rhonchi. No hypoxia. No increased work of breathing. C/V: Regular rate and rhythm. S1 and S2 auscultated, 1-2+ symmetrical pitting edema bilateral lower extremities., peripheral pulses 2+ and intact throughout ABD: Abd is soft, nontender, nondistended EXT: Reduced range of motion of the right knee secondary to pain in the right knee. No obvious deformities.. Can passively move the knee. Mild tenderness to palpation in the posterior right calf. SKIN: No rashes or lesions observed on exposed skin. NEURO: Alert and oriented 4. Ambulates with a walker at baseline. Limitations: no limitations Course Vital Signs 06/26/22 06/26/22 06/26/22 06:59 10:07 10:54 Temperature 98.4 F 97.7 F Pulse Rate 66 61 67 Respiratory 16 18 18 Rate Blood Pressure 146/73 157/62 160/70 O2 Sat by Pulse 99 97 97 Oximetry Medical Decision Making - Medical Decision Making Based on the patient's presentation and physical exam, I'm concerned for possible DVT in the right lower extremity vs. musculoskeletal pain/injury. She has no other symptoms at this time, however with her cardiac history I did recommend we obtain a cardiac workup. We can also check her kidney function to evaluate if we can safely restart her Lasix to to be slightly worsening since pitting edema. She was in agreement with this plan. Will be given an aspirin as well as a dose of Toradol here in the department. Chest x-ray, knee x-ray, venous duplexes of both lower extremities will be obtained as well. EKG shows no signs of acute ischemia. Laboratory studies are remarkable for an elevated BUN/creatinine which appears to be at her baseline with a history of CK D. Troponin is undetectable. BNP is within normal limits. Remainder the labs are unremarkable. Venous duplex was obtained and showed no signs of DVTs in bi lateral lower extremities. Chest x-ray shows no acute cardiopulmonary process. It is unchanged from prior chest x-ray. The x-ray shows no acute process.Right knee x-ray cannot rule out meniscus injury. Otherwise shows degenerative changes in the knee. There is also trace effusion. Discussed the findings with family members. Believe it is safer to be discharged home with follow-up with her PCP this week. They were in agreement this plan. Will use [id number] analgesics as needed. I discussed with the patient as well as family members the results of her imaging and workup. She does not have a blood clot. They were in agreement and chest understanding. Recommended she follow up with her PCP regarding resuming her Lasix at home. She was in agreement with this plan. She can use [id number] medications, ice for knee pain management. Recommended she follow up with her PCP in the next few days. There were in agreement this plan. I instructed the patient to follow up with their PCP in the next 1-3 days. I explained that the patient should return to the emergency department if they experience any worsening symptoms. Strict return precautions were discussed with the patient. The patient expressed understanding of these instructions. I answered all questions that the patient had. The patient was discharged home in good condition with their prescriptions and follow up information. - Lab Data Result diagrams: 06/26/22 07:31 06/26/22 07:31 Lab Results 06/26/22 06/26/22 06/26/22 Range/Units 07:31 07:31 07:31 WBC 6.1 (3.8-10.6) k/uL RBC 4.70 (3.80-5.40) m/uL Hgb 13.4 (11.4-16.0) gm/dL Hct 42.2 (34.0-46.0) % MCV 89.7 (80.0-100.0) fL MCH 28.5 (25.0-35.0) pg MCHC 31.7 (31.0-37.0) g/dL RDW 13.2 (11.5-15.5) % Plt Count 287 (150-450) k/uL MPV 7.1 Neutrophils % 71 % Lymphocytes % 18 % Monocytes % 7 % Eosinophils % 2 % Basophils % 1 % Neutrophils # 4.3 (1.3-7.7) k/uL Lymphocytes # 1.1 (1.0-4.8) k/uL Monocytes # 0.4 (0-1.0) k/uL Eosinophils # 0.1 (0-0.7) k/uL Basophils # 0.1 (0-0.2) k/uL PT 10.4 (9.0-12.0) sec INR 0.9 (<1.2) APTT 23.1 (22.0-30.0) sec Sodium 141 (137-145) mmol/L Potassium 3.6 (3.5-5.1) mmol/L Chloride 108 H (98-107) mmol/L Carbon Dioxide 26 (22-30) mmol/L Anion Gap 7 mmol/L BUN 28 H (7-17) mg/dL Creatinine 1.21 H (0.52-1.04) mg/dL Est GFR (CKD-EPI)AfAm 47 (>60 ml/min/1.73 sqM) Est GFR (CKD-EPI)NonAf 41 (>60 ml/min/1.73 sqM) Glucose 98 (74-99) mg/dL Calcium 9.5 (8.4-10.2) mg/dL Magnesium 1.9 (1.6-2.3) mg/dL Troponin I (0.000-0.034) ng/mL NT-Pro-B Natriuret Pep pg/mL 06/26/22 06/26/22 Range/Units 07:31 07:31 WBC (3.8-10.6) k/uL RBC (3.80-5.40) m/uL Hgb (11.4-16.0) gm/dL Hct (34.0-46.0) % MCV (80.0-100.0) fL MCH (25.0-35.0) pg MCHC (31.0-37.0) g/dL RDW (11.5-15.5) % Plt Count (150-450) k/uL MPV Neutrophils % % Lymphocytes % % Monocytes % % Eosinophils % % Basophils % % Neutrophils # (1.3-7.7) k/uL Lymphocytes # (1.0-4.8) k/uL Monocytes # (0-1.0) k/uL Eosinophils # (0-0.7) k/uL Basophils # (0-0.2) k/uL PT (9.0-12.0) sec INR (<1.2) APTT (22.0-30.0) sec Sodium (137-145) mmol/L Potassium (3.5-5.1) mmol/L Chloride (98-107) mmol/L Carbon Dioxide (22-30) mmol/L Anion Gap mmol/L BUN (7-17) mg/dL Creatinine (0.52-1.04) mg/dL Est GFR (CKD-EPI)AfAm (>60 ml/min/1.73 sqM) Est GFR (CKD-EPI)NonAf (>60 ml/min/1.73 sqM) Glucose (74-99) mg/dL Calcium (8.4-10.2) mg/dL Magnesium (1.6-2.3) mg/dL Troponin I <0.012 (0.000-0.034) ng/mL NT-Pro-B Natriuret Pep 161 pg/mL - EKG Data -: EKG Interpreted by Me EKG Comments: 12-lead Electrocardiogram Interpretation Note EKG was reviewed and interpreted by myself. 12-lead ECG performed at 0733 is interpreted by me as revealing electronically paced rhythm at a rate of at 65 beats per minute. FL interval is 185 ms, QRS duration is 179 ms, QTc is 469 ms. Left bundle branch block pathology is chronic secondary to pacemaker. There were no acute ST or T wave abnormalities to suggest myocardial ischemia or injury. R wave progression across the precordium was delayed. By my interpretation this EKG is non-diagnostic for acute ischemia. Unchanged from EKG on 05/31/2022. Disposition Clinical Impression: Knee pain, right Narrative: Chronic dependent edema Disposition: HOME SELF-CARE Condition: Good Is patient prescribed a controlled substance at d/c from ED?: No Referrals: Polo Jones MD [Primary Care Provider] - 1-2 days Time of Disposition: 09:52
[2022-06-26 08:04] LABS: Basophils # (A) 0.1 k/uL (0-0.2); Basophils % (A) 1 %; Eosinophils # (A) 0.1 k/uL (0-0.7); Eosinophils % (A) 2 %; HCT 42.2 % (34.0-46.0); HGB 13.4 gm/dL (11.4-16.0); Lymphocytes # (A) 1.1 k/uL (1.0-4.8); Lymphocytes % (A) 18 %; MCH 28.5 pg (25.0-35.0); MCHC 31.7 g/dL (31.0-37.0); MCV 89.7 fL (80.0-100.0); Mean Platelet Volume 7.1; Monocytes # (A) 0.4 k/uL (0-1.0); Monocytes % (A) 7 %; Neutrophils # (A) 4.3 k/uL (1.3-7.7); Neutrophils % (A) 71 %; Platelet Count 287 k/uL (150-450); RDW 13.2 % (11.5-15.5); WBC 6.1 k/uL (3.8-10.6)
[2022-06-26 08:15] LABS: Calcium 9.5 mg/dL (8.4-10.2); Magnesium 1.9 mg/dL (1.6-2.3); Potassium 3.6 mmol/L (3.5-5.1)
[2022-06-26 08:16] LABS: INR 0.9 (<1.2); Partial Thromboplastin Time 23.1 sec (22.0-30.0); Prothrombin Time 10.4 sec (9.0-12.0)
--- NOTE | 2022-06-26 08:49 | US ---
EXAMINATION TYPE: US venous doppler duplex LE BI DATE OF EXAM: 06/26/2022 7:26 AM COMPARISON: NONE CLINICAL HISTORY: 87-year-old female left leg swelling. SIDE PERFORMED: Bilateral TECHNIQUE: The lower extremity deep venous system is examined utilizing real time linear array sonog pk with graded compression, doppler sonography and color-flow sonography. FINDINGS: VESSELS IMAGED: Common Femoral Vein Deep Femoral Vein Greater Saphenous Vein * Femoral Vein Popliteal Vein Small Saphenous Vein * Proximal Calf Veins (* superficial vessels) Right Leg: Appears negative for DVT Left Leg: Appears negative for DVT IMPRESSION: No evidence for DVT within the bilateral lower extremities imaged from the groin to the upper calf.
--- NOTE | 2022-06-26 10:07 | XR ---
EXAMINATION TYPE: XR chest 2V DATE OF EXAM: 06/26/2022 COMPARISON: 05/31/[address] 11/08/2021 HISTORY: 87-year-old female with leg swelling TECHNIQUE: AP and lateral views FINDINGS: Left anterior chest wall pacemaker generator with right atrial and right ventricular leads. Heart is mildly enlarged. Mild interstitial prominence. Apical opacities likely soft tissue/chest wall superpo sition or vascular ectasia. Some strandy atelectasis at the left base. There is a rounded area of mix ed soft tissue linear lucency suggesting underlying large hiatal hernia, confirmed on prior CT. No co nsolidation or pleural effusion. IMPRESSION: 1. Borderline to mild cardiomegaly. 2. Known large hiatal hernia with nearly the entire stomach located within the lower chest. 3. Otherwise, there are chronic-appearing changes. No acute process seen.
[2022-06-26 10:08] VITALS: RESP 18
--- NOTE | 2022-06-26 10:08 | XR ---
EXAMINATION TYPE: XR knee complete RT DATE OF EXAM: 06/26/2022 COMPARISON: NONE HISTORY: 87-year-old female nontraumatic leg pain and swelling TECHNIQUE: 3 views FINDINGS: Meniscal chondrocalcinosis noted. Degenerative spurring medial and patellofemoral compartme nts. Trace knee joint effusion. Possible extrusion to the body medial meniscus on the AP view. Extens or mechanism is intact. Osteopenia. No acute fracture, subluxation, dislocation is seen. IMPRESSION: 1. Degenerative spurring in the medial and patellofemoral compartments. 2. Possible underlying tear of the medial meniscus. There is some soft tissue density on the AP view that could reflect some extrusion of the body of the medial meniscus. 3. Trace knee joint effusion.
[2022-06-26 11:03] VITALS: BP 160/70; PULSE 67; TEMP 97.7
== END 2022-06-26 11:07 | disposition home or self-care (01) ==
LOC: EC 06:52
DX: M25.561 Pain in right knee (principal); E78.5 Hyperlipidemia, unspecified; I10 Essential (primary) hypertension; Z87.891 Personal history of nicotine dependence; Z79.890 Hormone replacement therapy; Z79.899 Other long term (current) drug therapy; Z88.2 Allergy status to sulfonamides; Z91.041 Radiographic dye allergy status; Z91.013 Allergy to seafood
CPT/HCPCS: 36415; 93005; 83880; 80048; 83735; 84484; 85025; 85610; 85730; 73562; 71046; 93970; 99285; 96374; J1885

== ENCOUNTER 2022-08-09 07:46 | Emergency (ER) | payer MEDICARE, BC ==
[2022-08-09 07:53] VITALS: RESP 18
--- NOTE | 2022-08-09 08:18 | ED ---
General Adult HPI - General Chief complaint: Skin/Abscess/Foreign Body Stated complaint: Sore on bottom Time Seen by Provider: 08/09/22 07:52 Source: patient, RN notes reviewed, old records reviewed Mode of arrival: ambulatory Limitations: no limitations - History of Present Illness Initial comments: Is an 87-year-old female who presents emergency Department complaining of a sore on her bottom. She states it has been present for approximately 3-4 weeks. Describes it as a "chapping sensation" over the left buttock cheek. She has been attempting to treat it with topical bacitracin and scrubbing cleaning but is afraid that is getting worse. Presents for further evaluation at this time. Denies any fevers, chills, sick contacts. Denies any chest pain, shortness breath, abdominal pain, nausea, vomiting. Has no other acute complaints at this time. This chronically sit in a recliner which is unchanged from baseline due to her CHF history. There is no change in her normal presentation for CHF. Always has orthopnea, not any worse. Denies PND. Is not endorse worsening exertional dyspnea. Does not endorse worsening lower extremity edema. Presents for evaluation of her buttocks because she could not make an appointment to see her PCP. - Related Data Home Medications Medication Instructions Recorded Confirmed Levothyroxine Sodium [Synthroid] 88 mcg PO DAILY 09/17/14 05/31/22 Ubidecarenone [Co Q-10] 100 mg PO DAILY 09/17/14 05/31/22 Aspirin 81 mg PO DAILY 05/03/15 05/31/22 Lisinopril-Hctz 10-12.5 mg 1 tab PO DAILY 05/03/15 05/31/22 [Zestoretic 10-12.5] Multivitamins, Thera [Multivitamin 1 tab PO DAILY 05/04/15 05/31/22 (formulary)] Pravastatin Sodium [Pravachol] 40 mg PO DAILY 08/07/18 05/31/22 Calcium Carbonate [Calcium] 600 mg PO DAILY 05/31/22 05/31/22 Escitalopram Oxalate [Lexapro] 10 mg PO DAILY 05/31/22 05/31/22 Meclizine HCl 12.5 mg PO TID PRN 05/31/22 05/31/22 Previous Rx's Medication Instructions Recorded Cephalexin [Keflex] 500 mg PO Q12HR 5 Days #10 cap 08/09/22 Allergies Allergy/AdvReac Type Severity Reaction Status Date / Time Sulfa (Sulfonamide Allergy Unknown Verified 08/09/22 07:53 Antibiotics) Iodinated Contrast Media AdvReac Abdominal Verified 08/09/22 07:53 [Iodinated Contrast Media - Pain IV Dye] shellfish derived AdvReac Abdominal Verified 08/09/22 07:53 Pain Review of Systems ROS Statement: Those systems with pertinent positive or pertinent negative responses have been documented in the HPI. Review of Systems: CONST: Denies fever EYES: Denies blurry vision ENT: Denies nasal congestion C/V: Denies Chest pain RESP: Denies shortness of breath GI: Denies abdominal pain : Denies dysuria SKIN: Endorses left buttock rash MSK: Denies joint pain. NEURO: Denies headache ROS Other: All systems not noted in ROS Statement are negative. Past Medical History Past Medical History: Dementia, GERD/Reflux, Hyperlipidemia, Hypertension, Thyroid Disorder Additional Past Medical History / Comment(s): mobitz type 2 second degree heart block, vertigo other hx per old chart: incont of urine, hiatal hernia, rectocele/cystocele, MURMUR, HIATAL HERNIA,EARLY DEMENTIA, WAS TOLD 2 YEARS AGO HAD VERY BEGINNINGS OF GLAUCOMA History of Any Multi-Drug Resistant Organisms: None Reported Past Surgical History: Bladder Surgery, Heart Catheterization, Hysterectomy, Pacemaker Additional Past Surgical History / Comment(s): pacemaker-2014 Past Anesthesia/Blood Transfusion Reactions: No Reported Reaction Additional Past Anesthesia/Blood Transfusion Reaction / Comment(s): 40 YEARS AGO BLOOD TRANSFUSION AFTER CHILDBIRTH, VERTIGO Type of Cardiac Device: Permanent Pacemaker Device Placement Date:: 2014 Past Psychological History: No Psychological Hx Reported Smoking Status: Former smoker Past Alcohol Use History: None Reported Past Drug Use History: None Reported - Past Family History Father Family Medical History: Cancer Additional Family Medical History / Comment(s): COLON CANCER Mother Family Medical History: Congestive Heart Failure (CHF), Myocardial Infarction ([place]) General Exam - General Exam Comments Initial Comments: General: Appears in no acute distress. HEAD: Normal with no signs of head trauma. EYES: PERRLA, EOMI, conjunctiva normal, no discharge. ENT: Hearing grossly intact, normal oropharynx. RESPIRATORY: Clear breath sounds bilaterally. No wheezes, rales, or rhonchi. No hypoxia. C/V: Regular rate and rhythm. S1 and S2 auscultated, no edema, peripheral pulses 2+ and intact throughout ABD: Abd is soft, nontender, nondistended EXT: Normal range of motion, no obvious deformity SKIN: Patient has, at most, stage I decubitus ulcer located over the left butt cheek. No surrounding erythema or fluctuance. No induration. Very mild possible abrasion likely secondary to scrubbing. Skin appears dry. No warmth. NEURO: Alert and oriented 4. No focal deficits. Limitations: no limitations Course Vital Signs 08/09/22 07:48 Temperature 98 F Pulse Rate 72 Respiratory 18 Rate Blood Pressure 151/71 O2 Sat by Pulse 98 Oximetry Medical Decision Making - Medical Decision Making Based on the patient's presentation and physical exam, she presents for a wound on her left buttock cheek. Has no systemic signs of infection. On exam, does appear that she may have the beginning stages of the stage I decubitus ulcer versus skin irritation. I do not believe that laboratory studies are required at this time she has not no systemic signs of infection. We discussed at length the importance for offloading her weight on that side. Also recommended that she try to change positions outside of her recliner. Patient expressed underst anding. Family is requesting antibiotic to be used if necessary and I believe this is reasonable. They will use a difficult worse and they are unable to follow up with wound care or her PCP. We discussed topical solutions including Vaseline, bacitracin, Neosporin as well as keeping the area clean and dry. She was in agreement with this plan. Discussed offloading weight on that side of her buttock and offloading weight in general to avoid other decubitus ulcers and wounds. She was in agreement with this plan. Patient will be discharged home at this time. Vital signs are within normal limits. I will provide the patient with a prescription for Keflex. I instructed the patient to follow up with their PCP in the next 1-3 days. I provided contact information for follow up with wound care. I explained that the patient should return to the emergency department if they experience any worsening symptoms. Strict return precautions were discussed with the patient. The patient expressed understanding of these instructions. I answered all questions that the patient had. The patient was discharged home in good condition with their prescriptions and follow up information. Disposition Clinical Impression: Skin irritation, Decubitus ulcer, stage 1 Disposition: HOME SELF-CARE Condition: Good Instructions (If sedation given, give patient instructions): How to Prevent Pressure Injuries (ED) Prescriptions: Cephalexin [Keflex] 500 mg PO Q12HR 5 Days #10 cap Is patient prescribed a controlled substance at d/c from ED?: No Referrals: Polo Jones MD [Primary Care Provider] - 1-2 days [facility] [NON-STAFF] - 1-2 days Time of Disposition: 08:10
[2022-08-09 09:49] VITALS: BP 174/98; PULSE 82; TEMP 98.1
== END 2022-08-09 08:39 | disposition home or self-care (01) ==
LOC: EC 07:46
DX: L89.321 Pressure ulcer of left buttock, stage 1 (principal); I10 Essential (primary) hypertension; E78.5 Hyperlipidemia, unspecified; E07.9 Disorder of thyroid, unspecified; Z87.891 Personal history of nicotine dependence; Z79.890 Hormone replacement therapy; Z79.899 Other long term (current) drug therapy; Z88.2 Allergy status to sulfonamides; Z91.041 Radiographic dye allergy status; Z91.013 Allergy to seafood
CPT/HCPCS: 99283

== ENCOUNTER → 2022-12-27 | Outpatient (CLI) | payer MEDICARE, BC ==
[2022-12-27 15:42] LABS: ALT 17 U/L (8-44); AST 20 U/L (13-35); African American GFR (CKD) 39.1 (60.0-200.0); Albumin 4.3 g/dL (3.8-4.9); Albumin/Globulin Ratio 1.62 (1.60-3.17); Alkaline Phosphatase 66 U/L (41-126); BUN/Creat Ratio 21.21 Ratio (12.00-20.00); Blood Urea Nitrogen 29.7 mg/dL (9.0-27.0); Calcium 9.9 mg/dL (8.7-10.3); Carbon Dioxide 25.5 mmol/L (20.0-27.5); Chloride 106 mmol/L (96-109); Chol/HDL Ratio 3.75 Ratio; Globulin 2.7 g/dL (1.6-3.3); Glucose 98 mg/dL (70-110); LDL Cholesterol,Calculated 144.4 mg/dL (0.0-131.0); Non-African American GFR(CKD) 33.7 (60.0-200.0); Potassium 4.3 mmol/L (3.5-5.5); Sodium 142 mmol/L (135-145)
== END | disposition home or self-care (01) ==
LOC: LABWHC1 08:19
PROVIDERS: ATTEND Internal Medicine Interventional Cardiology
DX: E78.2 Mixed hyperlipidemia (principal); E83.52 Hypercalcemia
CPT/HCPCS: 36415; 80053; 80061; 82330; 83970

== ENCOUNTER 2023-02-05 14:53 | Emergency (ER) | payer MEDICARE, BC ==
--- NOTE | 2023-02-05 17:14 | CT ---
EXAMINATION TYPE: CT brain cspine wo con DATE OF EXAM: 02/05/2023 COMPARISON: 05/31/2022 And 11/08/2021 HISTORY: fall CT DLP: 1367.8 mGycm Automated exposure control for dose reduction was used. There is cerebral atrophy. There is no mass effect or midline shift. No sign of intracranial hemorrha ge. The calvarium is intact. There is normal aeration of the mastoid sinuses. The cervical vertebra have normal alignment. Posterior elements are intact. There is mild cervical fa cet arthropathy. No significant disc space narrowing. There is minor spurring of the endplates at C5- 6. The skull base is intact. IMPRESSION: Cerebral atrophy. No acute intracranial abnormality. Negative CT scan cervical spine. No adverse parham ge.
--- NOTE | 2023-02-05 17:30 | XR ---
EXAMINATION TYPE: XR knee complete bilateral DATE OF EXAM: 02/05/2023 COMPARISON: Right knee 06/26/2022 HISTORY: Pain. Fall. TECHNIQUE: 3 views each knee FINDINGS: There is spurring of the medial femoral and tibial condyles. There is faint calcification o f the menisci. No fracture seen. No evidence of any significant knee joint effusion. IMPRESSION: Mild osteoarthritis and chondrocalcinosis. No fracture.
--- NOTE | 2023-02-05 17:41 | XR ---
EXAMINATION TYPE: XR shoulder complete BILAT DATE OF EXAM: 02/05/2023 COMPARISON: None HISTORY: Bilateral shoulder pain. TECHNIQUE: 3 views each shoulder FINDINGS: There is no evidence of fracture nor dislocation. Joint spaces are normal. Glenohumeral nicolas nts are intact there is left axillary pacemaker. AC joints are intact. IMPRESSION: Negative bilateral shoulder exam. No fracture.
--- NOTE | 2023-02-05 17:48 | ED ---
Fall HPI - General Chief Complaint: Fall Stated Complaint: Fall Time Seen by Provider: 02/05/23 15:10 Source: patient, family Mode of arrival: wheelchair - History of Present Illness Initial Comments: 87-year-old female presents emergency room accompanied by her daughter. She sustained a fall out on her deck. States that she was ambulating with her walker when it slipped out in front of her and she fell flat on her face. She caught herself with her arms. She denies losing consciousness. She does not take any blood thinners. No confusion. Denies any unilateral numbness or weakness. No speech deficits. Does have some mild bilateral shoulder pain as well as bilateral knee pain. Patient was able to get up and a bleed inside her house and use her phone to call her daughter. She did not take anything for the pain. No alleviating, precipitating or modifying factors - Related Data Home Medications Medication Instructions Recorded Confirmed Levothyroxine Sodium [Synthroid] 88 mcg PO DAILY 09/17/14 05/31/22 Ubidecarenone [Co Q-10] 100 mg PO DAILY 09/17/14 05/31/22 Aspirin 81 mg PO DAILY 05/03/15 05/31/22 Lisinopril-Hctz 10-12.5 mg 1 tab PO DAILY 05/03/15 05/31/22 [Zestoretic 10-12.5] Multivitamins, Thera [Multivitamin 1 tab PO DAILY 05/04/15 05/31/22 (formulary)] Pravastatin Sodium [Pravachol] 40 mg PO DAILY 08/07/18 05/31/22 Calcium Carbonate [Calcium] 600 mg PO DAILY 05/31/22 05/31/22 Escitalopram Oxalate [Lexapro] 10 mg PO DAILY 05/31/22 05/31/22 Meclizine HCl 12.5 mg PO TID PRN 05/31/22 05/31/22 Previous Rx's Medication Instructions Recorded Cephalexin [Keflex] 500 mg PO Q12HR 5 Days #10 cap 08/09/22 Allergies Allergy/AdvReac Type Severity Reaction Status Date / Time Sulfa (Sulfonamide Allergy Unknown Verified 02/05/23 15:11 Antibiotics) Iodinated Contrast Media AdvReac Abdominal Verified 02/05/23 15:11 [Iodinated Contrast Media - Pain IV Dye] shellfish derived AdvReac Abdominal Verified 02/05/23 15:11 Pain Review of Systems ROS Statement: Those systems with pertinent positive or pertinent negative responses have been documented in the HPI. ROS Other: All systems not noted in ROS Statement are negative. Past Medical History Past Medical History: Dementia, GERD/Reflux, Hyperlipidemia, Hypertension, Thyroid Disorder Additional Past Medical History / Comment(s): mobitz type 2 second degree heart block, vertigo other hx per old chart: incont of urine, hiatal hernia, rectocele/cystocele, MURMUR, HIATAL HERNIA,EARLY DEMENTIA, WAS TOLD 2 YEARS AGO HAD VERY BEGINNINGS OF GLAUCOMA, COVID History of Any Multi-Drug Resistant Organisms: None Reported Past Surgical History: Bladder Surgery, Heart Catheterization, Hysterectomy, Pacemaker Additional Past Surgical History / Comment(s): pacemaker-2014 Past Anesthesia/Blood Transfusion Reactions: No Reported Reaction Additional Past Anesthesia/Blood Transfusion Reaction / Comment(s): 40 YEARS AGO BLOOD TRANSFUSION AFTER CHILDBIRTH, VERTIGO Type of Cardiac Device: Permanent Pacemaker Device Placement Date:: 2014 Past Psychological History: No Psychological Hx Reported Smoking Status: Former smoker Past Alcohol Use History: None Reported Past Drug Use History: None Reported - Past Family History Father Family Medical History: Cancer Additional Family Medical History / Comment(s): COLON CANCER Mother Family Medical History: Congestive Heart Failure (CHF), Myocardial Infarction ([place]) General Exam Limitations: no limitations General appearance: alert, in no apparent distress Head exam: Present: normocephalic, other (hematoma right forehead) Eye exam: Present: normal appearance, PERRL, EOMI. Absent: scleral icterus, conjunctival injection, periorbital swelling ENT exam: Present: normal exam, mucous membranes moist Neck exam: Present: normal inspection. Absent: tenderness, meningismus, lymphadenopathy Cardiovascular Exam: Present: regular rate, normal rhythm, normal heart sounds. Absent: systolic murmur, diastolic murmur, rubs, gallop, clicks GI/Abdominal exam: Present: soft, normal bowel sounds. Absent: distended, tenderness, guarding, rebound, rigid Extremities exam: Present: normal inspection, full ROM, normal capillary refill. Absent: tenderness, pedal edema, joint swelling, calf tenderness Back exam: Present: normal inspection Neurological exam: Present: alert, oriented X3, CN II-XII intact Psychiatric exam: Present: normal affect, normal mood Skin exam: Present: warm, dry, intact, normal color. Absent: rash Course Vital Signs 02/05/23 02/05/23 15:05 18:10 Temperature 99.0 F 98.7 F Pulse Rate 102 H 72 Respiratory 20 18 Rate Blood Pressure 132/77 138/72 O2 Sat by Pulse 96 98 Oximetry Medical Decision Making - Medical Decision Making Was pt. sent in by a medical professional or institution ([facility], CREDIT CONSULTANT, urgent care, hospital, or half-way...) When possible be specific @ -No Did you speak to anyone other than the patient for history (EMS, parent, family, police, friend...)? What history was obtained from this source @ -daughter Did you review nursing and triage notes (agree or disagree)? Why? @ -I reviewed and agree with nursing and triage notes Were old charts reviewed (outside hosp., previous admission, EMS record, old EKG, old radiological studies, urgent care reports/EKG's, half-way records)? Report findings @ -No old charts were reviewed Differential Diagnosis (chest pain, altered mental status, abdominal pain women, abdominal pain men, vaginal bleeding, weakness, fever, dyspnea, syncope, headache, dizziness, GI bleed, back pain, seizure, CVA, palpatations, mental health, musculoskeletal)? @ -syncope, seizure, mechanical fall, concussion, sah, sdh, fracture EKG interpreted by me (3pts min.). @ -no X-rays interpreted by me (1pt min.). @ -yes CT interpreted by me (1pt min.). @ -yes U/S interpreted by me (1pt. min.). @ -None done What testing was considered but not performed or refused? (CT, X-rays, U/S, labs)? Why? @ -chest/rib x-ray - patient refused What meds were considered but not given or refused? Why? @ -None Did you discuss the management of the patient with other professionals (professionals i.e. [facility]unes, CREDIT CONSULTANT, lab, RT, psych nurse, social services technician, souvenir assembler, teacher, wildlife conservation officer, manager rn case)? Give summary @ -No Was smoking cessation discussed for >3mins.? @ -No Was critical care preformed (if so, how long)? @ -No Were there social determinants of health that impacted care today? How? (Homelessness, low income, unemployed, alcoholism, drug addiction, transportation, low edu. Level, literacy, decrease access to med. care, longterm, rehab)? @ -No Was there de-escalation of care discussed even if they declined (Discuss DNR or withdrawal of care, Hospice)? DNR status @ -No What co-morbidities impacted this encounter? (DM, HTN, Smoking, COPD, CAD, Cancer, CVA, ARF, Chemo, Hep., AIDS, mental health diagnosis, sleep apnea, morbid obesity)? @ -dementia, heart block Was patient admitted / discharged? Hospital course, mention meds given and route, prescriptions, significant lab abnormalities, going to OR and other pertinent info. @ -On arrival patient was placed into room 21. History and physical exam is performed. Patient sent for x-ray of her bilateral shoulders, bilateral knees. CT performed the patient's head and cervical spine. Imaging is reviewed and negative. Patient is able to get up and ambulate without difficulty. No confusion. Patient will be discharged home at this time and instructed to follow up with the pcp in 2-4 days. Return for any new or worsening symptoms per patient agreeable to plan she was discharged home in stable Undiagnosed new problem with uncertain prognosis? @ -yes Drug Therapy requiring intensive monitoring for toxicity (Heparin, Nitro, Insulin, Cardizem)? @ -No Were any procedures done? @ -No Diagnosis/symptom? @ -acute fall, concussion without loc, bilateral shoulder and knee pain Acute, or Chronic, or Acute on Chronic? @ -acute Uncomplicated (without systemic symptoms) or Complicated (systemic symptoms)? @ -complicated Side effects of treatment? @ -No Exacerbation, Progression, or Severe Exacerbation? @ -No Poses a threat to life or bodily function? How? (Chest pain, [place], HI, pneumonia, PE, COPD, DKA, ARF, appy, cholecystitis, CVA, Diverticulitis, Homicidal, Suicidal, threat to staff... and all critical care pts) @ -yes Disposition Clinical Impression: Fall, Shoulder pain, bilateral, Concussion without loss of consciousness, Knee pain, bilateral Disposition: HOME SELF-CARE Condition: Stable Instructions (If sedation given, give patient instructions): Fall Prevention (ED) Additional Instructions: Please follow-up with your primary care doctor in 2-4 days and return for any new or worsening symptoms Is patient prescribed a controlled substance at d/c from ED?: No Referrals: Tere Ortiz MD [Primary Care Provider] - 1-2 days Time of Disposition: 17:48
[2023-02-05 18:11] VITALS: BP 138/72; PULSE 72; RESP 18; TEMP 98.7
== END 2023-02-05 18:10 | disposition home or self-care (01) ==
LOC: EC 14:53
DX: S06.0X0A Concussion without loss of consciousness, initial encounter (principal); S00.83XA Contusion of other part of head, initial encounter; M25.511 Pain in right shoulder; M25.512 Pain in left shoulder; M25.561 Pain in right knee; M25.562 Pain in left knee; R40.2362 Coma scale, best motor response, obeys commands, at arrival to emergency department; R40.2142 Coma scale, eyes open, spontaneous, at arrival to emergency department; R40.2242 Coma scale, best verbal response, confused conversation, at arrival to emergency department; I10 Essential (primary) hypertension; E78.5 Hyperlipidemia, unspecified; F03.90 Unspecified dementia, unspecified severity, without behavioral disturbance, psychotic disturbance, mood disturbance, and anxiety; K21.9 Gastro-esophageal reflux disease without esophagitis; Z79.82 Long term (current) use of aspirin; Z79.899 Other long term (current) drug therapy; Z86.16 Personal history of COVID-19; Z87.891 Personal history of nicotine dependence; Z88.2 Allergy status to sulfonamides; Z91.013 Allergy to seafood; Z91.041 Radiographic dye allergy status; Z95.0 Presence of cardiac pacemaker; W01.0XXA Fall on same level from slipping, tripping and stumbling without subsequent striking against object, initial encounter
CPT/HCPCS: 70450; 72125; 99284

== ENCOUNTER 2023-03-14 18:53 | Emergency (ER) | payer MEDICARE, BC ==
[2023-03-14 19:10] VITALS: RESP 18; TEMP 97.6
--- NOTE | 2023-03-14 19:53 | XR ---
EXAMINATION TYPE: XR shoulder complete RT DATE OF EXAM: 03/14/2023 CLINICAL HISTORY: pain TECHNIQUE: Three views of the right shoulder are obtained. COMPARISON: None FINDINGS: There is no acute fracture/dislocation evident. The acromioclavicular and glenohumeral susana int spaces appear mild. The visualized ribs are intact and unremarkable. IMPRESSION: 1. There is no acute fracture or dislocation. ICD 10 NO FRACTURE, INITIAL EVALUATION
--- NOTE | 2023-03-14 20:07 | CT ---
EXAMINATION TYPE: CT brain cspine wo con DATE OF EXAM: 03/14/2023 COMPARISON: 02/05/2023 HISTORY: Fall. Rt shoulder pain CT DLP: 1437.[address] of the brain was performed. The ventricles, basal cisterns and sulci overlying the cerebral convexities demonstrate enlargement. There is no evidence for intracranial hemorrhage or sulcal effacement. There is decreased attenuatio n about the periventricular white matter and deep white matter of both cerebral hemispheres, compatib le with chronic small vessel ischemia. No mass effects are seen. If symptoms persist consider MRI. Osseous calvarium is intact. IMPRESSION: 1. Age related atrophic and chronic small vessel ischemic change without acute intracranial process seen at this time. CT Cervical Spine: Unenhanced CT of the cervical spine was performed with bone and soft tissue window settings submitted . Coronal and sagittal reconstruction is obtained. There is normal alignment and prevertebral soft tissues. No evidence for acute cervical fracture . Scattered degenerative disc disease and spondylosis. Biapical scarring. IMPRESSION: 1. No evidence for acute fracture or subluxation of the cervical spine.
[2023-03-14 20:27] VITALS: BP 141/68; PULSE 91
--- NOTE | 2023-03-14 20:36 | ED ---
General Adult HPI - General Chief complaint: Fall Stated complaint: FALL Time Seen by Provider: 03/14/23 18:57 Source: patient Mode of arrival: ambulatory Limitations: no limitations - History of Present Illness Initial comments: This is an 88-year-old female who presents emergency department via EMS after mechanical fall. The patient stated that she was in her kitchen when she was reaching for the counter, had a mechanical fall, landing on her right shoulder. The patient denied hitting her head and denied losing consciousness. The patient does live alone and stated that she was unable to get up on her own so EMS was called. The patient only had pain in the right shoulder and did not complain of any other pain or distress noted. The patient's daughters were at the bedside and did state the patient has been had multiple falls over the last several weeks but stated that they were all mechanical falls. The patient denied any other pain or distress at this time. - Related Data Home Medications Medication Instructions Recorded Confirmed Levothyroxine Sodium [Synthroid] 88 mcg PO DAILY 09/17/14 05/31/22 Ubidecarenone [Co Q-10] 100 mg PO DAILY 09/17/14 05/31/22 Aspirin 81 mg PO DAILY 05/03/15 05/31/22 Lisinopril-Hctz 10-12.5 mg 1 tab PO DAILY 05/03/15 05/31/22 [Zestoretic 10-12.5] Multivitamins, Thera [Multivitamin 1 tab PO DAILY 05/04/15 05/31/22 (formulary)] Pravastatin Sodium [Pravachol] 40 mg PO DAILY 08/07/18 05/31/22 Calcium Carbonate [Calcium] 600 mg PO DAILY 05/31/22 05/31/22 Escitalopram Oxalate [Lexapro] 10 mg PO DAILY 05/31/22 05/31/22 Meclizine HCl 12.5 mg PO TID PRN 05/31/22 05/31/22 Previous Rx's Medication Instructions Recorded Cephalexin [Keflex] 500 mg PO Q12HR 5 Days #10 cap 08/09/22 Allergies Allergy/AdvReac Type Severity Reaction Status Date / Time Sulfa (Sulfonamide Allergy Unknown Verified 03/14/23 19:13 Antibiotics) Iodinated Contrast Media AdvReac Abdominal Verified 03/14/23 19:13 [Iodinated Contrast Media - Pain IV Dye] shellfish derived AdvReac Abdominal Verified 03/14/23 19:13 Pain Review of Systems ROS Statement: Those systems with pertinent positive or pertinent negative responses have been documented in the HPI. ROS Other: All systems not noted in ROS Statement are negative. Past Medical History Past Medical History: Dementia, GERD/Reflux, Hyperlipidemia, Hypertension, Thyroid Disorder Additional Past Medical History / Comment(s): mobitz type 2 second degree heart block, vertigo other hx per old chart: incont of urine, hiatal hernia, rectocele/cystocele, MURMUR, HIATAL HERNIA,EARLY DEMENTIA, WAS TOLD 2 YEARS AGO HAD VERY BEGINNINGS OF GLAUCOMA, COVID History of Any Multi-Drug Resistant Organisms: None Reported Past Surgical History: Bladder Surgery, Heart Catheterization, Hysterectomy, Pacemaker Additional Past Surgical History / Comment(s): pacemaker-2014 Past Anesthesia/Blood Transfusion Reactions: No Reported Reaction Additional Past Anesthesia/Blood Transfusion Reaction / Comment(s): 40 YEARS AGO BLOOD TRANSFUSION AFTER CHILDBIRTH, VERTIGO Type of Cardiac Device: Permanent Pacemaker Device Placement Date:: 2014 Past Psychological History: No Psychological Hx Reported Smoking Status: Former smoker Past Alcohol Use History: None Reported Past Drug Use History: None Reported - Past Family History Father Family Medical History: Cancer Additional Family Medical History / Comment(s): COLON CANCER Mother Family Medical History: Congestive Heart Failure (CHF), Myocardial Infarction ([place]) General Exam Limitations: no limitations General appearance: alert, in no apparent distress Head exam: Present: atraumatic, normocephalic, normal inspection Eye exam: Present: normal appearance, PERRL Pupils: Present: normal accommodation ENT exam: Present: normal exam, normal oropharynx, mucous membranes moist Neck exam: Present: normal inspection, full ROM Respiratory exam: Present: normal lung sounds bilaterally Cardiovascular Exam: Present: regular rate, normal rhythm, normal heart sounds GI/Abdominal exam: Present: soft, normal bowel sounds Extremities exam: Present: normal inspection, other (Tenderness to the anterior right shoulder with decreased ROM) Back exam: Present: normal inspection, full ROM Neurological exam: Present: alert, oriented X3, CN II-XII intact Psychiatric exam: Present: normal affect, normal mood Skin exam: Present: warm, dry Course Vital Signs 03/14/23 03/14/23 03/14/23 19:05 19:19 20:26 Temperature 97.6 F Pulse Rate 94 89 91 Respiratory 18 18 18 Rate Blood Pressure 141/71 144/61 141/68 O2 Sat by Pulse 99 98 99 Oximetry Medical Decision Making - Medical Decision Making Was pt. sent in by a medical professional or institution (, FERMÍN, TAPING FOREMAN, urgent care, hospital, or penitentiary...) When possible be specific @ -No Did you speak to anyone other than the patient for history (EMS, parent, family, police, friend...)? What history was obtained from this source @ -Yes, patient's daughters at the bedside and did confirm that the patient had multiple mechanical falls but was at her baseline. Did you review nursing and triage notes (agree or disagree)? Why? @ -I reviewed and agree with nursing and triage notes Were old charts reviewed (outside hosp., previous admission, EMS record, old EKG, old radiological studies, urgent care reports/EKG's, penitentiary records)? Report findings @ -No old charts were reviewed Differential Diagnosis (chest pain, altered mental status, abdominal pain women, abdominal pain men, vaginal bleeding, weakness, fever, dyspnea, syncope, headache, dizziness, GI bleed, back pain, seizure, CVA, palpatations, mental health)? @ -Mechanical fall, right shoulder strain, right shoulder contusion, dislocation, fracture EKG interpreted by me (3pts min.). @ -None X-rays interpreted by me (1pt min.). @ -X-ray of the right shoulder was obtained and was interpreted by myself showing no acute fracture. CT interpreted by me (1pt min.). @ -CT head and C-spine were obtained and were interpreted by myself showing no acute processes or intracranial bleed U/S interpreted by me (1pt. min.). @ -None done What testing was considered but not performed or refused? (CT, X-rays, U/S, labs)? Why? @ -None What meds were considered but not given or refused? Why? @ -None Did you discuss the management of the patient with other professionals (professionals i.e. FERMÍN Funes, TAPING FOREMAN, lab, RT, psych nurse, social work coordinator, test deskman, teacher, conservation officer, medical case manager)? Give summary @ -No Was smoking cessation discussed for >3mins.? @ -No Was critical care preformed (if so, how long)? @ -No Were there social determinants of health that impacted care today? How? (Homelessness, low income, unemployed, alcoholism, drug addiction, transportation, low edu. Level, literacy, decrease access to med. care, nursing home, rehab)? @ -No Was there de-escalation of care discussed even if they declined (Discuss DNR or withdrawal of care, Hospice)? DNR status @ -No What co-morbidities impacted this encounter? (DM, HTN, Smoking, COPD, CAD, Cancer, CVA, ARF, Chemo, Hep., AIDS, mental health diagnosis, sleep apnea, morbid obesity)? @ -None Was patient admitted / discharged? Hospital course, mention meds given and route, prescriptions, significant lab abnormalities, going to OR and other pertinent info. @ -The patient was seen and evaluated emergency department. Physical exam, the patient was resting in bed without any acute distress. Vital signs admission were stable. All imaging was negative and the patient likely had a right shoulder sprain versus contusion. Discharge back home was discussed with the patient and her daughters and they were agreeable to having the patient discharged back home. The patient was advised to continue to monitor symptoms and to report back to the emergency department if they became acutely worse. The patient and her daughters were agreeable to this and all depressions were answered. The patient was discharged home in stable condition. Undiagnosed new problem with uncertain prognosis? @ -No Drug Therapy requiring intensive monitoring for toxicity (Heparin, Nitro, Insulin, Cardizem)? @ -No Were any procedures done? @ -No Diagnosis/symptom? @ -Right shoulder strain, contusion Acute, or Chronic, or Acute on Chronic? @ -Acute Uncomplicated (without systemic symptoms) or Complicated (systemic symptoms)? @ -Uncomplicated Side effects of treatment? @ -No Exacerbation, Progression, or Severe Exacerbation? @ -No Poses a threat to life or bodily function? How? (Chest pain, USA, NV, pneumonia, PE, COPD, DKA, ARF, appy, cholecystitis, CVA, Diverticulitis, Homicidal, Suicidal, threat to staff... and all critical care pts) @ -No Disposition Clinical Impression: Fall, Right shoulder strain, Shoulder contusion Disposition: HOME SELF-CARE Condition: Stable Instructions (If sedation given, give patient instructions): Fall Prevention for Older Adults (ED), Shoulder Pain (ED) Is patient prescribed a controlled substance at d/c from ED?: No Referrals: Tere Ortiz MD [Primary Care Provider] - 1-2 days Time of Disposition: 20:15
== END 2023-03-14 21:04 | disposition home or self-care (01) ==
LOC: EC 18:53
DX: S46.911A Strain of unspecified muscle, fascia and tendon at shoulder and upper arm level, right arm, initial encounter (principal); I67.82 Cerebral ischemia; E78.5 Hyperlipidemia, unspecified; I10 Essential (primary) hypertension; E07.9 Disorder of thyroid, unspecified; Z87.891 Personal history of nicotine dependence; Z79.890 Hormone replacement therapy; Z79.82 Long term (current) use of aspirin; Z79.899 Other long term (current) drug therapy; Z88.2 Allergy status to sulfonamides; Z91.041 Radiographic dye allergy status; Z91.013 Allergy to seafood; Z86.16 Personal history of COVID-19; Z88.1 Allergy status to other antibiotic agents; W18.30XA Fall on same level, unspecified, initial encounter; Y92.000 Kitchen of unspecified non-institutional (private) residence as the place of occurrence of the external cause
CPT/HCPCS: 70450; 72125; 99285

== ENCOUNTER 2024-03-31 13:03 | Inpatient (IN) | payer MEDICARE, BC ==
--- NOTE | 2024-03-31 13:49 | ED ---
General Adult HPI - General Source: patient, EMS Mode of arrival: EMS Limitations: no limitations <Tree Dale - Last Filed: 03/31/24 14:47> <Shay Leon - Last Filed: 03/31/24 16:55> - General Chief complaint: Altered Mental Status Stated complaint: AMS Time Seen by Provider: 03/31/24 13:14 - History of Present Illness Initial comments: Dictation was produced using [email or web address] dictation software. please excuse any grammatical, word or spelling errors. Chief Complaint: 89-year-old female presents to the emergency department for frequent falls and worsening functional status at home History of Present Illness: Patient is 89-year-old female she has past medical history of dementia. She is brought here from home by daughters. For the last several days patient has been having worsening disability. She has suffered 6 falls at home at least. Family rotates watching over their mother. They feel like patient's functional status is so diminished that she is unable to be cared for adequately at home. They are seeking long-term placement. Patient denies any complaints and wants to be discharged. Patient has no pain complaints. Denies any constitutional symptoms. The ROS documented in this emergency department record has been reviewed and confirmed by me. Those systems with pertinent positive or negative responses have been documented in the HPI. All other systems are other negative and/or noncontributory. (Tree Dale) - Related Data Home Medications Medication Instructions Recorded Confirmed Levothyroxine Sodium [Synthroid] 88 mcg PO DAILY 09/17/14 03/31/24 Aspirin 81 mg PO DAILY 05/03/15 03/31/24 Lisinopril-Hctz 10-12.5 mg 1 tab PO DAILY 05/03/15 03/31/24 [Zestoretic 10-12.5] Escitalopram Oxalate [Lexapro] 10 mg PO BID 05/31/22 03/31/24 Cetirizine HCl [Zyrtec] 10 mg PO DAILY 03/31/24 03/31/24 Cholestyramine (with Sugar) 4 gm PO DAILY 03/31/24 03/31/24 [Cholestyramine Packet] LORazepam [Ativan] 0.5 mg PO BID PRN 03/31/24 03/31/24 Allergies Allergy/AdvReac Type Severity Reaction Status Date / Time Sulfa (Sulfonamide Allergy Unknown Verified 03/31/24 14:47 Antibiotics) Iodinated Contrast Media AdvReac Abdominal Verified 03/31/24 14:47 [Iodinated Contrast Media - Pain IV Dye] shellfish derived AdvReac Abdominal Verified 03/31/24 14:47 Pain Review of Systems ROS Other: All systems not noted in ROS Statement are negative. <Tree Dale - Last Filed: 03/31/24 14:47> ROS Other: All systems not noted in ROS Statement are negative. <Shay Leon - Last Filed: 03/31/24 16:55> ROS Statement: Those systems with pertinent positive or pertinent negative responses have been documented in the HPI. Past Medical History Past Medical History: Dementia, GERD/Reflux, Hyperlipidemia, Hypertension, Thyroid Disorder Additional Past Medical History / Comment(s): mobitz type 2 second degree heart block, vertigo other hx per old chart: incont of urine, hiatal hernia, rectocele/cystocele, MURMUR, HIATAL HERNIA,EARLY DEMENTIA, WAS TOLD 2 YEARS AGO HAD VERY BEGINNINGS OF GLAUCOMA, COVID History of Any Multi-Drug Resistant Organisms: None Reported Past Surgical History: Bladder Surgery, Heart Catheterization, Hysterectomy, Pacemaker Additional Past Surgical History / Comment(s): pacemaker-2014 Past Anesthesia/Blood Transfusion Reactions: No Reported Reaction Additional Past Anesthesia/Blood Transfusion Reaction / Comment(s): 40 YEARS AGO BLOOD TRANSFUSION AFTER CHILDBIRTH, VERTIGO Type of Cardiac Device: Permanent Pacemaker Device Placement Date:: 2014 Past Psychological History: No Psychological Hx Reported, Anxiety Smoking Status: Former smoker Past Alcohol Use History: None Reported Past Drug Use History: None Reported - Past Family History Father Family Medical History: Cancer Additional Family Medical History / Comment(s): COLON CANCER Mother Family Medical History: Congestive Heart Failure (CHF), Myocardial Infarction ([place]) <Tree Dale - Last Filed: 03/31/24 14:47> General Exam Limitations: no limitations <Tree Dale - Last Filed: 03/31/24 14:47> - General Exam Comments Initial Comments: PHYSICAL EXAM: General Impression: Alert and oriented x2/4, not in acute distress HEENT: Normocephalic atraumatic, extra-ocular movements intact, pupils equal and reactive to light bilaterally, mucous membranes moist. Cardiovascular: Heart regular rate and rhythm Chest: Able to complete full sentences, no retractions, no tachypnea Abdomen: abdomen soft, non-tender, non-distended, no organomegaly Musculoskeletal: Pulses present and equal in all extremities, no peripheral edema Motor: no focal deficits noted Neurological: CN II-XII grossly intact, no focal motor or sensory deficits noted Skin: Intact with no visualized rashes Psych: Normal affect and mood (Tree Dale) Course Vital Signs 03/31/24 03/31/24 03/31/24 13:09 14:00 14:30 Temperature 97.3 F L Pulse Rate 75 77 71 Respiratory 20 16 16 Rate Blood Pressure 164/77 160/87 164/76 O2 Sat by Pulse 99 96 97 Oximetry 03/31/24 15:00 Temperature Pulse Rate 77 Respiratory 16 Rate Blood Pressure 173/76 O2 Sat by Pulse 97 Oximetry EKG Findings - EKG Comments: EKG Findings:: My EKG interpretation: Ventricular rate 75, ventricular paced rhythm,. 163, cures 174, QTc 462. No ID prolongation, no QTC prolongation, no ST or T-wave changes noted. EKG compared to June 26, 2022 showing no changes. Overall, this EKG is unremarkable <Tree Dale - Last Filed: 03/31/24 14:47> Medical Decision Making - Lab Data Result diagrams: 03/31/24 14:03 <Tree Dale - Last Filed: 03/31/24 14:47> - Lab Data Result diagrams: 03/31/24 14:03 03/31/24 14:03 <Shay Leon - Last Filed: 03/31/24 16:55> - Medical Decision Making Was pt. sent in by a medical professional or institution (, PA, CUTTER OPERATOR HELPER, urgent care, hospital, or long-term...) When possible be specific @ -No Did you speak to anyone other than the patient for history (EMS, parent, family, police, friend...)? What history was obtained from this source @ -No Did you review nursing and triage notes (agree or disagree)? Why? @ -I reviewed and agree with nursing and triage notes Were old charts reviewed (outside hosp., previous admission, EMS record, old EKG, old radiological studies, urgent care reports/EKG's, long-term records)? Report findings @ -No old charts were reviewed Differential Diagnosis (chest pain, altered mental status, abdominal pain women, abdominal pain men, vaginal bleeding, musculoskeletal, weakness, fever, dyspnea, syncope, headache, dizziness, GI bleed, back pain, seizure, CVA, palpatations, mental health)? @ -Differential Weakness: Hypoglycemia, shock, sepsis, hyponatremia, anemia, infection, [place], ETOH, adverse medicine reaction, overdose, stroke, this is not meant to be an all-inclusive list. EKG interpreted by me (3pts min.). @ -See above X-rays interpreted by me (1pt min.). @ -None done CT interpreted by me (1pt min.). @ -None done U/S interpreted by me (1pt. min.). @ -None done What testing was considered but not performed or refused? (CT, X-rays, U/S, labs)? Why? @ -None What meds were considered but not given or refused? Why? @ -None Did you discuss the management of the patient with other professionals (professionals i.e. , PA, CUTTER OPERATOR HELPER, lab, RT, psych nurse, geriatric social work professor, arcade attendant, teacher, senior credit officer, skilled nursing case manager)? Give summary @ -No Was smoking cessation discussed for >3mins.? @ -No Was critical care preformed (if so, how long)? @ -No Were there social determinants of health that impacted care today? How? (Homelessness, low income, unemployed, alcoholism, drug addiction, transportation, low edu. Level, literacy, decrease access to med. care, halfway, rehab)? @ -No Was there de-escalation of care discussed even if they declined (Discuss DNR or withdrawal of care, Hospice)? DNR status @ -No What co-morbidities impacted this encounter? (DM, HTN, Smoking, COPD, CAD, Cancer, CVA, ARF, Chemo, Hep., AIDS, mental health diagnosis, sleep apnea, morbid obesity)? @ -None Was patient admitted / discharged? Hospital course, mention meds given and route, prescriptions, significant lab abnormalities, going to OR and other pertinent info. @ -89-year-old demented female presents to the emergency department for frequent falls, worsening weakness and worsening disability at home. She lives at home by herself and according to family is beyond what the family can manage at home given patient's worsening functional status. Vital signs upon arrival are within acceptable limits. Physical examination is benign. Laboratory evaluation obtained. CBC urinalysis negative. Patient care signed out to Dr. Leon at 3:00 PM for follow-up of pending studies. Undiagnosed new problem with uncertain prognosis? @ -No Drug Therapy requiring intensive monitoring for toxicity (Heparin, Nitro, Insulin, Cardizem)? @ -No Were any procedures done? @ -No Diagnosis/symptom? Acute, or Chronic, or Acute on Chronic? Uncomplicated (without systemic symptoms) or Complicated (systemic symptoms)? @ -Gravely disabled Side effects of treatment? @ -No Exacerbation, Progression, or Severe Exacerbation? @ -No Poses a threat to life or bodily function? How? (Chest pain, USA, [place], pneumonia, PE, COPD, DKA, ARF, appy, cholecystitis, CVA, Diverticulitis, Homicidal, Suicidal, threat to staff... and all critical care pts) @ -yes (Tree Dale) Patient admitted to internal medicine. Psychiatry is placed on consult for evaluation of dementia and worsening agitation.. Patient was started on Seroquel and will likely require placement. Case discussed with EM. (Shay Leon) - Lab Data Lab Results 03/31/24 03/31/24 03/31/24 Range/Units 14:03 14:03 14:03 WBC 6.4 (3.8-10.6) k/uL RBC 4.42 (3.80-5.40) m/uL Hgb 12.7 (11.4-16.0) gm/dL Hct 40.1 (34.0-46.0) % MCV 90.7 (80.0-100.0) fL MCH 28.8 (25.0-35.0) pg MCHC 31.7 (31.0-37.0) g/dL RDW 13.6 (11.5-15.5) % Plt Count 292 (150-450) k/uL MPV 7.4 Neutrophils % 71 % Lymphocytes % 17 % Monocytes % 6 % Eosinophils % 4 % Basophils % 1 % Neutrophils # 4.6 (1.3-7.7) k/uL Lymphocytes # 1.1 (1.0-4.8) k/uL Monocytes # 0.4 (0-1.0) k/uL Eosinophils # 0.2 (0-0.7) k/uL Basophils # 0.1 (0-0.2) k/uL Sodium 140 (137-145) mmol/L Potassium 4.0 (3.5-5.1) mmol/L Chloride 110 H (98-107) mmol/L Carbon Dioxide 24 (22-30) mmol/L Anion Gap 6 mmol/L BUN 18 H (7-17) mg/dL Creatinine 1.04 (0.52-1.04) mg/dL Est GFR (CKD-EPI)AfAm 55 (>60 ml/min/1.73 sqM) Est GFR (CKD-EPI)NonAf 48 (>60 ml/min/1.73 sqM) Glucose 89 (74-99) mg/dL Calcium 9.6 (8.4-10.2) mg/dL Urine Color Colorless Urine Appearance Clear (Clear) Urine pH 5.5 (5.0-8.0) Ur Specific [place] 1.008 (1.001-1.035) Urine Protein Negative (Negative) Urine Glucose (UA) Negative (Negative) Urine Ketones Negative (Negative) Urine Blood Negative (Negative) Urine Nitrite Negative (Negative) Urine Bilirubin Negative (Negative) Urine Urobilinogen <2.0 (<2.0) mg/dL Ur Leukocyte Esterase Negative (Negative) Disposition <Tree Dale - Last Filed: 03/31/24 14:47> Is patient prescribed a controlled substance at d/c from ED?: No Time of Disposition: 16:55 <Shay Leon - Last Filed: 03/31/24 16:55> Clinical Impression: Altered mental status, Frequent falls, Dementia Disposition: ADMITTED IP TO THIS HOSP Condition: Stable Referrals: Tere Ortiz MD [Primary Care Provider] - 1-2 days
[2024-03-31 14:34] LABS: Basophils # (A) 0.1 k/uL (0-0.2); Basophils % (A) 1 %; Eosinophils # (A) 0.2 k/uL (0-0.7); Eosinophils % (A) 4 %; HCT 40.1 % (34.0-46.0); HGB 12.7 gm/dL (11.4-16.0); Lymphocytes # (A) 1.1 k/uL (1.0-4.8); Lymphocytes % (A) 17 %; MCH 28.8 pg (25.0-35.0); MCHC 31.7 g/dL (31.0-37.0); MCV 90.7 fL (80.0-100.0); Mean Platelet Volume 7.4; Monocytes # (A) 0.4 k/uL (0-1.0); Monocytes % (A) 6 %; Neutrophils # (A) 4.6 k/uL (1.3-7.7); Neutrophils % (A) 71 %; Platelet Count 292 k/uL (150-450); RBC 4.42 m/uL (3.80-5.40); RDW 13.6 % (11.5-15.5); WBC 6.4 k/uL (3.8-10.6)
[2024-03-31 14:37] LABS: Appearance,Urine Clear (Clear); Bilirubin,Urine Negative (Negative); Blood,Urine Negative (Negative); Color,Urine Colorless; Glucose,Urine (UA) Negative (Negative); Ketones,Urine Negative (Negative); Leukocyte Esterase,Urine Negative (Negative); Nitrite,Urine Negative (Negative); PH, Urine 5.5 (5.0-8.0); Protein,Urine Negative (Negative); Specific Gravity,Urine 1.008 (1.001-1.035); Urobilinogen,Urine <2.0 mg/dL (<2.0)
[2024-03-31 14:51] LABS: African American GFR (CKD) 55 (>60 ml/min/1.73 sqM); Anion Gap 6 mmol/L; Blood Urea Nitrogen 18 mg/dL (7-17); Calcium 9.6 mg/dL (8.4-10.2); Carbon Dioxide 24 mmol/L (22-30); Chloride 110 mmol/L (98-107); Glucose 89 mg/dL (74-99); Non-African American GFR(CKD) 48 (>60 ml/min/1.73 sqM); Sodium 140 mmol/L (137-145)
[2024-03-31] MEDS: LORazepam 2 MG/ML INJ IV STA (15:05)
--- NOTE | 2024-03-31 16:22 | CT ---
EXAMINATION TYPE: CT brain cspine wo con CT DLP: 1370.9 mGycm, Automated exposure control for dose reduction was used. DATE OF EXAM: 03/31/2024 4:10 PM COMPARISON: 03/14/2023 CLINICAL INDICATION:Female, 89 years old with history of falls; reoccurring falls and AMS TECHNIQUE: Brain: Multiple axial CT images of the brain were obtained without IV contrast. Cspine: Axial CT images from the skull base to the inferior aspect of T2 we obtained without intraven ous contrast. Coronal and sagittal reformatted images were also reviewed. FINDINGS: Brain: Extra-axial spaces: No abnormal extra-axial fluid collections. Ventricular system: Dilatation in proportion to cerebral atrophy. Cerebral parenchyma: Cerebral atrophy. No acute intraparenchymal hemorrhage or mass effect. The ha -white junction is well differentiated. Scattered hypoattenuating areas are seen within the white mat ter. Cerebellum: Unremarkable. Mass effect: No evidence of midline shift. Intracranial vasculature: Atherosclerotic calcifications of the intracranial vessels. Soft tissues: Normal. Calvarium/osseous structures: No depressed skull fracture. Paranasal sinuses and mastoid air cells: Clear. Visualized orbits: Orbital contents are intact. Cervical spine: Fracture: None. Osseous structures: Unremarkable Vertebral alignment: Within normal limits. Spinal canal/Neural Foramina: No evidence of significant spinal canal narrowing. No evidence for sign ificant neural foraminal stenosis. Neck soft tissues: Prevertebral soft tissues are within normal limits. Other: The airway is patent. The lung apices are clear. Enlarged left thyroid gland with underlying n odules. IMPRESSION: 1. No acute intracranial process. 2. Nonspecific white matter changes, likely secondary to chronic small vessel ischemic disease. 3. No evidence of cervical spine fracture. 4. Mild multilevel degenerative disc disease. 5. Left thyroid gland with nodules some of these may have been biopsied on prior exam in 2018..
--- NOTE | 2024-03-31 16:44 | XR ---
EXAMINATION TYPE: XR pelvis AP view DATE OF EXAM: 03/31/2024 4:16 PM CLINICAL INDICATION:Female, 89 years old with history of falls; COMPARISON: 11/08/2021 TECHNIQUE: The pelvis was examined in a single projection. FINDINGS: There is no evidence of fracture or dislocation. There is no soft tissue abnormality. No a bnormal calcifications are present. Multilevel degenerative changes of the lower spine. The hips appear intact. Osteophyte formation of the superior acetabulum bilaterally with mild joint space narrowing. IMPRESSION: 1. No acute osseous pathology. 2. Mild degeneration changes of the hip.
--- NOTE | 2024-03-31 16:45 | XR ---
EXAMINATION TYPE: XR chest 2V DATE OF EXAM: 03/31/2024 4:16 PM CLINICAL INDICATION:Female, 89 years old with history of falls; COMPARISON: Chest radiographs from 06/26/2022. TECHNIQUE: XR chest 2V Frontal and lateral views of the chest. FINDINGS: Lungs/Pleura: There is no evidence of pleural effusion, focal consolidation, or pneumothorax. Pulmonary vascularity: Pulmonary vascular congestion. Heart/mediastinum: Cardiomediastinal silhouette is enlarged and stable. Atherosclerotic calcificatio ns are seen in the aorta. Two lead cardiac conduction device overlying the left hemithorax with lead tips projecting over the right ventricle and right atrium. Musculoskeletal: No acute osseous pathology. Other findings: None IMPRESSION: Cardiomegaly and mild pulmonary vascular congestion. Correlate with BNP for congestive heart failure.
[2024-03-31] MEDS ORDERED: NALOXONE 0.4 MG/ML 1 ML VIAL IV PRN (16:50)
[2024-03-31] MEDS: QUEtiapine 25 MG TAB PO SCH (18:57)
[2024-03-31] MEDS: ESCITALOPRAM 10 MG TAB PO SCH (18:57)
[2024-03-31] MEDS ORDERED: HALOPERIDOL LACTATE 5 MG/ML 1 ML VIAL IVP ONE (20:50)
[2024-03-31] MEDS: HALOPERIDOL LACTATE 5 MG/ML 1 ML VIAL IM ONE (20:53)
[2024-03-31] MEDS: ZOLPIDEM 5 MG TAB PO ONE (21:42)
[2024-04-01] MEDS: diphenhydrAMINE 50 MG/ML 1 ML VIAL IVP ONE (03:20)
[2024-04-01] MEDS: LEVOTHYROXINE 88 MCG TAB PO SCH (06:32)
[2024-04-01] MEDS: CHOLESTYRAMINE (WITH SUGAR) 4 GM PACKET PO SCH (09:02)
[2024-04-01] MEDS: LORATADINE 10 MG TAB PO SCH (09:04)
[2024-04-01] MEDS: ASPIRIN 81 MG PO SCH (09:04)
[2024-04-01] MEDS: LISINOPRIL-HCTZ 10-12.5 MG 1 EACH TAB PO SCH (09:04)
[2024-04-01] MEDS: QUEtiapine 25 MG TAB PO STA (10:38)
[2024-04-01] MEDS: HALOPERIDOL LACTATE 5 MG/ML 1 ML VIAL IM STA (10:56)
--- NOTE | 2024-04-01 11:51 | P.HPIM ---
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 She has been having multiple falls at least 6 during the past few weeks. Patient's functional status has been declining and family is unable to take care of her at home. Patient has been agitated and trying to get out of the bed. Otherwise patient is ambulatory. No nausea vomiting or diarrhea. Denies any recent illnesses as per family. Chest x-ray showed cardiomegaly and mild pulm vascular congestion. Cardiac BNP for CHF. Pelvic x-ray showed no acute osseous pathology. Mild degeneration changes of the hip. CT head and cervical spine showed no acute intracranial process. Nonspecific white matter changes likely secondary to chronic small vessel ischemic disease. No evidence of cervical spine fracture. Mild multilevel degenerative disc disease. Left thyroid gland with nodules some of this may have been biopsied on prior exam in 2018.. Laboratory data showed WBC 6.4 hemoglobin 12.7 and platelets 292 Sodium 140 potassium 4.0, chloride 110 bicarb is 24 BUN 18 and creatinine 1.04 and blood sugar 89 Urinalysis is negative for infection. Review of Systems ROS unobtainable: due to mental status Past Medical History Past Medical History: Dementia, GERD/Reflux, Hyperlipidemia, Hypertension, Thyroid Disorder Additional Past Medical History / Comment(s): mobitz type 2 second degree heart block, vertigo other hx per old chart: incont of urine, hiatal hernia, rectocele/cystocele, MURMUR, HIATAL HERNIA,EARLY DEMENTIA, WAS TOLD 2 YEARS AGO HAD VERY BEGINNINGS OF GLAUCOMA, COVID History of Any Multi-Drug Resistant Organisms: None Reported Past Surgical History: Bladder Surgery, Heart Catheterization, Hysterectomy, Pacemaker Additional Past Surgical History / Comment(s): pacemaker-2014 Past Anesthesia/Blood Transfusion Reactions: No Reported Reaction Additional Past Anesthesia/Blood Transfusion Reaction / Comment(s): 40 YEARS AGO BLOOD TRANSFUSION AFTER CHILDBIRTH, VERTIGO Type of Cardiac Device: Permanent Pacemaker Device Placement Date:: 2014 Past Psychological History: No Psychological Hx Reported, Anxiety Smoking Status: Former smoker Past Alcohol Use History: None Reported Past Drug Use History: None Reported - Past Family History Father Family Medical History: Cancer Additional Family Medical History / Comment(s): COLON CANCER Mother Family Medical History: Congestive Heart Failure (CHF), Myocardial Infarction (DC) Medications and Allergies Home Medications Medication Instructions Recorded Confirmed Type Levothyroxine Sodium [Synthroid] 88 mcg PO DAILY 09/17/14 03/31/24 History Aspirin 81 mg PO DAILY 05/03/15 03/31/24 History Lisinopril-Hctz 10-12.5 mg 1 tab PO DAILY 05/03/15 03/31/24 History [Zestoretic 10-12.5] Escitalopram Oxalate [Lexapro] 10 mg PO BID 05/31/22 03/31/24 History Cetirizine HCl [Zyrtec] 10 mg PO DAILY 03/31/24 03/31/24 History Cholestyramine (with Sugar) 4 gm PO DAILY 03/31/24 03/31/24 History [Cholestyramine Packet] LORazepam [Ativan] 0.5 mg PO BID PRN 03/31/24 03/31/24 History Allergies Allergy/AdvReac Type Severity Reaction Status Date / Time Sulfa (Sulfonamide Allergy Unknown Verified 03/31/24 14:47 Antibiotics) Iodinated Contrast Media AdvReac Abdominal Verified 03/31/24 14:47 [Iodinated Contrast Media - Pain IV Dye] shellfish derived AdvReac Abdominal Verified 03/31/24 14:47 Pain Physical Exam Vitals: Vital Signs Temp Pulse Pulse Resp BP BP Pulse Ox 04/01/24 07:45 97.0 F L 76 18 177/72 94 L 04/01/24 02:00 93 16 160/77 93 L 03/31/24 17:00 75 16 151/70 96 03/31/24 15:00 77 16 173/76 97 03/31/24 14:30 71 16 164/76 97 03/31/24 14:00 77 16 160/87 96 03/31/24 13:09 97.3 F L 75 20 164/77 99 Intake and Output 03/31/24 04/01/24 04/01/24 22:59 06:59 14:59 Output Total 900 Balance -900 Output: Urine 900 Other: Voiding Method External Catheter Weight 79.379 kg PHYSICAL EXAMINATION: Patient is lying in the bed awake and alert but cannot provide any history. Patient is agitated and getting out of the bed... HEENT: Normocephalic. Neck is supple. Pupils reactive. Nostrils clear. Oral cavity is moist. Neck reveals no JVD, carotid bruits, or thyromegaly. CHEST EXAMINATION: Trachea is central. Symmetrical expansion. Lung nicolas clear to auscultation and percussion. CARDIAC: Normal S1, S2 with no gallops. No murmurs ABDOMEN: Soft. Bowel sounds present. No organomegaly. No abdominal bruits. Extremities: reveal no edema. No clubbing or cyanosis Neurologically awake, alert, disoriented and delirious and agitated.. Gross no focal deficits noted Skin: No rash or skin lesions. Psychiatric: Noncooperative. Could not be specific completely Musculoskeletal: No joint swelling or deformity. Results CBC & Chem 7: 03/31/24 14:03 03/31/24 14:03 Labs: Abnormal Lab Results - Last 24 Hours (Table) 03/31/24 Range/Units 14:03 Chloride 110 H (98-107) mmol/L BUN 18 H (7-17) mg/dL Thrombosis Risk Factor Assmnt - DVT/VTE Prophylaxis DVT/VTE Prophylaxis: Pharmacologic Prophylaxis ordered - Choose All That Apply Any of the Below Risk Factors Present?: Yes Each Factor Represents 1 point: Obesity (BMI >25) Other Risk Factors: Yes Each Risk Factor Represents 3 Points: Age 75 years or older Other congenital or acquired thrombophilia - If yes, enter type in comment: No Thrombosis Risk Factor Assessment Total Risk Factor Score: 4 Thrombosis Risk Factor Assessment Level: Moderate Risk Assessment and Plan Assessment: Dementia with acute behavioral change/delirium. Frequent falls Hypertension Hyperlipidemia Hypothyroidism History of pacemaker placement due to morbid type II second-degree AV block. DVT prophylaxis heparin subcu Plan: Patient will be given gentle IV hydration. EKG showed paced rhythm. Patient will be continued on Seroquel at bedtime and Haldol as needed for agitation. Start back on home medications. Follow-up TSH B12 folate and A1c levels. PT OT is consulted and possible detention placement. Discussed with family at bedside in detail. Time with Patient: Greater than 30
--- NOTE | 2024-04-01 14:27 | P.CN ---
Psychiatric Consult - . Consult date: 04/01/24 Consult:: 04/01/24 13:13 IDENTIFYING DATA: This patient is a 89 yo female, currently lives [facility], hx of dementia REASON FOR REFERRAL: Psychiatry was consulted for "dementia agitation" HISTORY OF PRESENT ILLNESS: The patient presented to the hospital on 03/31 brought in by her daughters. Patient apparently was having frequent falls at home, more agitated and aggressive as well. Patient apparently has a history of dementia, has been living with family. They report the patient has had a decline in her functional status lately having more frequent falls, they are currently seeking half-way placement. Patient's urine analysis was negative, she was admitted for altered mental status. Patient's daughters were at the bedside and agreeable to speak to racebook writer, they state that patient has had dementia for over 5 years now, states that within the past 5 weeks or so she has been getting more "agitated" and more anxious. States that her primary care doctor first increased her Lexapro and then added Ativan and patient got worse. They also claimed that patient has been talking to people that are not there and seeing things. Patient was seen at the bedside, had her eyes closed and was sleeping, she was awoken by racebook writer. Patient appeared to have poor recollection of why she is in the hospital, she did not know where she was, she only knew her first and last name. She believes that she was 89 years old. She was not able to recognize her daughters in front of her. She did not know today's date, she was confabulating in her sentences and explanations. She only followed some commands. She appeared to be somewhat lethargic and daughter state that she has been in and out of sleep during most the day and at nighttime. At this time patient denies any suicidal or homical ideations, intent or plan. Patient denies any auditory, visual hallucinations. Patients apparently is not using any recreational substances. PAST PSYCHIATRIC HISTORY: Patient has a a history of dementia. Unable to gather further psychiatric history due to patient's mental status Past Medical History: Dementia, GERD/Reflux, Hyperlipidemia, Hypertension, Thyroid Disorder Additional Past Medical History / Comment(s): mobitz type 2 second degree heart block, vertigo other hx per old chart: incont of urine, hiatal hernia, rectocele/cystocele, MURMUR, HIATAL HERNIA,EARLY DEMENTIA, WAS TOLD 2 YEARS AGO HAD VERY BEGINNINGS OF GLAUCOMA, COVID History of Any Multi-Drug Resistant Organisms: None Reported Past Surgical History: Bladder Surgery, Heart Catheterization, Hysterectomy, Pacemaker Additional Past Surgical History / Comment(s): pacemaker-2014 Past Anesthesia/Blood Transfusion Reactions: No Reported Reaction Additional Past Anesthesia/Blood Transfusion Reaction / Comment(s): 40 YEARS AGO BLOOD TRANSFUSION AFTER CHILDBIRTH, VERTIGO Type of Cardiac Device: Permanent Pacemaker Device Placement Date:: 2014 Past Psychological History: No Psychological Hx Reported, Anxiety Smoking Status: Former smoker Past Alcohol Use History: None Reported Past Drug Use History: None Reported ALLERGIES: as per EMR. CHEMICAL DEPENDENCY HISTORY: as per HPI. FAMILY PSYCHIATRIC/SUBSTANCE USE HISTORY: Denies SOCIAL HISTORY: Patient lives with family members, she has 3 daughters, unable to gather further social history due to patient's mental status MENTAL STATUS EXAM: General Appearance: Patient appears to be wearing glasses, fairly somnolent, laying in bed, stated age is attempts to cooperate. Patient appears to have fair hygiene and grooming wearing hospital gown with fair eye contact. Behavior: Patient is calmly lying in bed without any agitated behavior. Attempts to cooperate. Poor attention span Speech: Patient's speech is fluent and nonpressured. Hesitant, concrete Mood/Affect: Patient reports their mood is "ok", affect is congruent Suicidality/Homicidality: Patient denies having any suicidal or homicidal ideation intent or plan. Perceptions: Patient denies any visual hallucinations and denies any auditory hallucinations Though content/process: [place], poverty of content, confabulating. Memory and concentration: AO to name only, she only follows some commands, poor attention span. Cannot spell "WORLD" backwards Judgment and insight: Chronically limited IMPRESSIONS: Delirium, etiology unknown underlying Major neurocognitive disorder PLAN: -At this time patient DOES NOT meet criteria for inpatient psychiatric admission. -Patient DOES NOT have decision making capacity at this time and is unable to reason through and communicate/appreciate the risks, benefits and alternatives to treatment. -Delirium precautions recommended with patient including - avoiding use of narcotics and CONFLICTS ANALYST sedatives, limit anticholinergic medications when possible, frequent re-orientation, minimize use of restraints, open window shades during the day and close them at night -Would recommend the following medication changes/additions: Please avoid all benzodiazepines, antihistamines and steroids, opiates as these will increase patient's likelihood of more confusion and delirium. Can continue with scheduled Seroquel 25 mg nightly for sleep/delirium/agitation, added Seroquel 25 mg twice daily as needed p.o. for agitation/psychosis, for severe aggression and unable to tolerate or take p.o., ordered Zyprexa IM as needed. -Communicated plan to patient's case resolution specialist, no nurse was available at this time -Will continue to follow along as needed -Please contact with any questions. 04/01/24 14:18 04/01/24 14:20
[2024-04-01] MEDS: SODIUM CHLORIDE 0.45% 1,000 ML IV SCH (14:31)
[2024-04-01] MEDS: ACETAMINOPHEN TAB 325 MG TAB PO PRN (16:41)
[2024-04-01] MEDS: QUEtiapine 25 MG TAB PO PRN (16:41)
[2024-04-02 08:44] LABS: Basophils # (A) 0.05 X 10*3/uL (0.00-0.10); Basophils % (A) 0.8 %; Eosinophils # (A) 0.17 X 10*3/uL (0.04-0.35); Eosinophils % (A) 2.7 %; HCT 38.6 % (37.2-46.3); HGB 12.5 g/dL (12.0-15.0); Lymphocytes # (A) 1.22 X 10*3/uL (0.90-5.00); Lymphocytes % (A) 19.6 %; MCH 28.6 pg (27.0-32.0); MCHC 32.4 g/dL (32.0-37.0); MCV 88.3 FL (80.0-97.0); Mean Platelet Volume 10.2 FL (9.5-12.2); Monocytes # (A) 0.56 X 10*3/uL (0.20-1.00); NRBC Per 100 WBC 0 X 10*3/uL (0.00-0.01); Neutrophils # (A) 4.21 X 10*3/uL (1.80-7.70); Neutrophils % (A) 67.7 %; Platelet Count 304 X 10*3/uL (140-440); RBC 4.37 X 10*6/uL (4.10-5.20); RDW 13.6 % (11.5-14.5); WBC 6.22 X 10*3/uL (4.50-10.00)
[2024-04-02 09:07] LABS: Blood Urea Nitrogen 11.5 mg/dL (9.0-27.0); Calcium 9.4 mg/dL (8.7-10.3); Carbon Dioxide 23.5 mmol/L (21.6-31.8); Chloride 107 mmol/L (96-109); Glucose 105 mg/dL (70-110); Potassium 3.7 mmol/L (3.5-5.5); Sodium 141 mmol/L (135-145)
--- NOTE | 2024-04-02 13:47 | P.PN ---
Progress Note - Text Progress Note Date: 04/02/24 Interval history: Patient was seen today for psychiatric follow-up regarding patient's delirium and underlying dementia. Patient's nurse states that patient has been doing fairly well today, cooperative, no agitation. Nurse also claims that patient slept throughout the night fairly well. Patient did receive a extra dose of Seroquel this morning. Patient was seen at the bedside, her son was there helping her. Patient appears to be mildly more pleasant today, directable, was a bit sleepy. She was speaking more today about the hospital and about the care and was asking about her blankets and going to the bathroom. She was a bit tangential and rambling. Not endorsing any delusions today. Claims that her mood and appetite and anxiety are fair. She was not oriented to place or time however did know her name. She denies any suicidal homicidal ideations intent or plan. Denies any auditory or visual hallucinations. MENTAL STATUS EXAM: General Appearance: Patient appears to be wearing glasses, fairly somnolent, laying in bed, stated age is attempts to cooperate. Patient appears to have fair hygiene and grooming wearing hospital gown with fair eye contact. Behavior: Patient is calmly lying in bed without any agitated behavior. Attempts to cooperate. Improved attention span Speech: Patient's speech is fluent and nonpressured. Hesitant, improving mildly, rambling at times Mood/Affect: Patient reports their mood is "ok", affect is congruent Suicidality/Homicidality: Patient denies having any suicidal or homicidal ideation intent or plan. Perceptions: Patient denies any visual hallucinations and denies any auditory hallucinations Though content/process: [place], poverty of content, confabulating. Memory and concentration: AO to name only, she only follows some commands, poor attention span. Cannot spell "WORLD" backwards Judgment and insight: Chronically limited, improving mildly IMPRESSIONS: Delirium, etiology unknown underlying Major neurocognitive disorder PLAN: -At this time patient DOES NOT meet criteria for inpatient psychiatric admission. -Patient DOES NOT have decision making capacity at this time and is unable to reason through and communicate/appreciate the risks, benefits and alternatives to treatment. -Delirium precautions recommended with patient including - avoiding use of narcotics and CANDLE WICKER sedatives, limit anticholinergic medications when possible, frequent re-orientation, minimize use of restraints, open window shades during the day and close them at night -Would recommend the following medication changes/additions: Please avoid all benzodiazepines, antihistamines and steroids, opiates as these will increase patient's likelihood of more confusion and delirium. Can continue Seroquel 25 mg nightly for sleep/delirium/agitation, with Seroquel 25 mg twice daily as needed p.o. for agitation/psychosis, for severe aggression and unable to tolerate or take p.o., Zyprexa IM as needed. -Communicated plan to patient's case managers and patient's nurse. medical staff services manager currently looking at placement options available for patient upon discharge. -At this time psychiatry will sign off. -Please contact with any questions.
--- NOTE | 2024-04-02 17:48 | P.PN ---
Subjective Progress Note Date: 04/02/24 Patient is a 89-year-old female with a past medical history of hypertension, hyperlipidemia, hypothyroidism, dementia and Mobitz type II second-degree heart block status post permanent pacemaker placement and prior history of smoking was brought to the hospital due to frequent falls and worsening mental status at home for the past 3 weeks. She has been having multiple falls at least 6 during the past few weeks. Patient's functional status has been declining and family is unable to take care of her at home. Patient has been agitated and trying to get out of the bed. Otherwise patient is ambulatory. No nausea vomiting or diarrhea. Denies any recent illnesses as per family. Chest x-ray showed cardiomegaly and mild pulm vascular congestion. Cardiac BNP for CHF. Pelvic x-ray showed no acute osseous pathology. Mild degeneration changes of the hip. CT head and cervical spine showed no acute intracranial process. Nonspecific white matter changes likely secondary to chronic small vessel ischemic disease. No evidence of cervical spine fracture. Mild multilevel degenerative disc disease. Left thyroid gland with nodules some of this may have been biopsied on prior exam in 2018.. Laboratory data showed WBC 6.4 hemoglobin 12.7 and platelets 292 Sodium 140 potassium 4.0, chloride 110 bicarb is 24 BUN 18 and creatinine 1.04 and blood sugar 89 Urinalysis is negative for infection. Objective - Vital Signs Vital signs: Vital Signs Temp 98.5 F 04/02/24 07:14 Pulse 77 04/02/24 07:14 Resp 19 04/02/24 09:20 BP 155/72 04/02/24 07:14 Pulse Ox 95 04/02/24 07:14 FiO2 Intake & Output 04/01/24 04/02/24 04/02/24 18:59 06:59 18:59 Output Total 200 600 Balance -200 -600 Output: Urine 200 600 Other: Voiding Method Indwelling Catheter External Catheter # Voids 1 1 # Bowel Movements 1 1 - Exam HEENT: Normocephalic. Neck is supple. Pupils reactive. Nostrils clear. Oral cavity is moist. Neck reveals no JVD, carotid bruits, or thyromegaly. CHEST EXAMINATION: Trachea is central. Symmetrical expansion. Lung nicolas clear to auscultation and percussion. CARDIAC: Normal S1, S2 with no gallops. No murmurs ABDOMEN: Soft. Bowel sounds present. No organomegaly. No abdominal bruits. Extremities: reveal no edema. No clubbing or cyanosis Neurologically awake, alert, disoriented and delirious and agitated.. Gross no focal deficits noted Skin: No rash or skin lesions. Psychiatric: Noncooperative. Could not be specific completely Musculoskeletal: No joint swelling or deformity. - Labs CBC & Chem 7: 04/02/24 04:56 04/02/24 04:56 Labs: Abnormal Lab Results - Last 24 Hours (Table) 04/01/24 04/02/24 Range/Units 12:15 04:56 Est GFR (CKD-EPI) 54 L (>=60) BUN/Creatinine Ratio 11.50 L (12.00-20.00) Ratio TSH 5.570 H (0.350-5.500) UIU/ML Assessment and Plan Assessment: Dementia with acute behavioral change/delirium. Frequent falls Hypertension Hyperlipidemia Hypothyroidism History of pacemaker placement due to morbid type II second-degree AV block. DVT prophylaxis heparin subcu Plan: Patient will be given gentle IV hydration. EKG showed paced rhythm. Patient will be continued on Seroquel at bedtime and Haldol as needed for agitation. Start back on home medications. Follow-up TSH B12 folate and A1c levels. PT OT is consulted and possible [facility]p placement. Discussed with family at bedside in detail.
[2024-04-02] MEDS: OLANZapine 10 MG VIAL IM PRN (17:58)
[2024-04-03] MEDS: MELATONIN 3 MG TABLET PO PRN (20:50)
--- NOTE | 2024-04-04 19:40 | P.PN ---
Subjective Progress Note Date: 04/03/24 Patient is a 89-year-old female with a past medical history of hypertension, hyperlipidemia, hypothyroidism, dementia and Mobitz type II second-degree heart block status post permanent pacemaker placement and prior history of smoking was brought to the hospital due to frequent falls and worsening mental status at home for the past 3 weeks. She has been having multiple falls at least 6 during the past few weeks. Patient's functional status has been declining and family is unable to take care of her at home. Patient has been agitated and trying to get out of the bed. Otherwise patient is ambulatory. No nausea vomiting or diarrhea. Denies any recent illnesses as per family. Chest x-ray showed cardiomegaly and mild pulm vascular congestion. Cardiac BNP for CHF. Pelvic x-ray showed no acute osseous pathology. Mild degeneration changes of the hip. CT head and cervical spine showed no acute intracranial process. Nonspecific white matter changes likely secondary to chronic small vessel ischemic disease. No evidence of cervical spine fracture. Mild multilevel degenerative disc disease. Left thyroid gland with nodules some of this may have been biopsied on prior exam in 2018.. Laboratory data showed WBC 6.4 hemoglobin 12.7 and platelets 292 Sodium 140 potassium 4.0, chloride 110 bicarb is 24 BUN 18 and creatinine 1.04 and blood sugar 89 Urinalysis is negative for infection. Patient is seen and evaluated with daughters at bedside; patient continues to be confused and restless -- Has been placed on Seroquel 25 mg nightly with Seroquel 25 mg twice daily as needed for agitation and psychosis; can take Zyprexa IM Patient's condition discussed with family members in great detail; daughters are requesting a formal neurology evaluation; we will consult neurology Objective - Vital Signs Vital signs: Vital Signs Temp 98.5 F 04/03/24 07:23 Pulse 92 04/03/24 07:23 Resp 19 04/03/24 07:23 BP 122/65 04/03/24 07:23 Pulse Ox 95 04/03/24 07:23 FiO2 Intake & Output 04/02/24 04/03/24 04/03/24 18:59 06:59 18:59 Output Total 800 1500 Balance -800 -1500 Output: Urine 800 1500 Other: Voiding Method Indwelling Catheter Indwelling Catheter External Catheter # Voids 1 - Exam HEENT: Normocephalic. Neck is supple. Pupils reactive. Nostrils clear. Oral cavity is moist. Neck reveals no JVD, carotid bruits, or thyromegaly. CHEST EXAMINATION: Trachea is central. Symmetrical expansion. Lung nicolas clear to auscultation and percussion. CARDIAC: Normal S1, S2 with no gallops. No murmurs ABDOMEN: Soft. Bowel sounds present. No organomegaly. No abdominal bruits. Extremities: reveal no edema. No clubbing or cyanosis Neurologically awake, alert, disoriented and delirious and agitated.. Gross no focal deficits noted Skin: No rash or skin lesions. Psychiatric: Noncooperative. Could not be specific completely Musculoskeletal: No joint swelling or deformity. - Labs CBC & Chem 7: 04/02/24 04:56 04/02/24 04:56 Assessment and Plan Assessment: Dementia with acute behavioral change/delirium. Frequent falls Hypertension Hyperlipidemia Hypothyroidism History of pacemaker placement due to morbid type II second-degree AV block. DVT prophylaxis heparin subcu Plan: Patient will be given gentle IV hydration. EKG showed paced rhythm. Patient will be continued on Seroquel at bedtime and Haldol as needed for agitation. Start back on home medications. Follow-up TSH B12 folate and A1c levels. PT OT is consulted and possible alf placement. Discussed with family at bedside in detail.
[2024-04-05 09:07] LABS: Basophils # (A) 0.06 X 10*3/uL (0.00-0.10); Basophils % (A) 0.8 %; Eosinophils # (A) 0.17 X 10*3/uL (0.04-0.35); Eosinophils % (A) 2.3 %; HCT 36.8 % (37.2-46.3); HGB 11.9 g/dL (12.0-15.0); Lymphocytes # (A) 0.84 X 10*3/uL (0.90-5.00); Lymphocytes % (A) 11.5 %; MCH 28.6 pg (27.0-32.0); MCHC 32.3 g/dL (32.0-37.0); MCV 88.5 FL (80.0-97.0); Mean Platelet Volume 10.3 FL (9.5-12.2); Monocytes # (A) 0.67 X 10*3/uL (0.20-1.00); Monocytes % (A) 9.2 %; NRBC Per 100 WBC 0 X 10*3/uL (0.00-0.01); Neutrophils # (A) 5.53 X 10*3/uL (1.80-7.70); Neutrophils % (A) 75.8 %; Platelet Count 286 X 10*3/uL (140-440); RBC 4.16 X 10*6/uL (4.10-5.20); RDW 13.8 % (11.5-14.5)
[2024-04-05 09:13] LABS: BUN/Creat Ratio 12.58 Ratio (12.00-20.00); Blood Urea Nitrogen 15.1 mg/dL (9.0-27.0); Calcium 9.5 mg/dL (8.7-10.3); Carbon Dioxide 23.9 mmol/L (21.6-31.8); Chloride 106 mmol/L (96-109); Glucose 131 mg/dL (70-110); Potassium 3.4 mmol/L (3.5-5.5); Sodium 141 mmol/L (135-145)
--- NOTE | 2024-04-05 13:41 | P.PN ---
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 She has been having multiple falls at least 6 during the past few weeks. Patient's functional status has been declining and family is unable to take care of her at home. Patient has been agitated and trying to get out of the bed. Otherwise patient is ambulatory. No nausea vomiting or diarrhea. Denies any recent illnesses as per family. Chest x-ray showed cardiomegaly and mild pulm vascular congestion. Cardiac BNP for CHF. Pelvic x-ray showed no acute osseous pathology. Mild degeneration changes of the hip. CT head and cervical spine showed no acute intracranial process. Nonspecific white matter changes likely secondary to chronic small vessel ischemic disease. No evidence of cervical spine fracture. Mild multilevel degenerative disc disease. Left thyroid gland with nodules some of this may have been biopsied on prior exam in 2018.. Laboratory data showed WBC 6.4 hemoglobin 12.7 and platelets 292 Sodium 140 potassium 4.0, chloride 110 bicarb is 24 BUN 18 and creatinine 1.04 and blood sugar 89 Urinalysis is negative for infection. Patient is seen and evaluated with daughters at bedside; patient continues to be confused and restless -- Has been placed on Seroquel 25 mg nightly with Seroquel 25 mg twice daily as needed for agitation and psychosis; can take Zyprexa IM Patient's condition discussed with family members in great detail; daughters are requesting a formal neurology evaluation; we will consult neurology 04/05/2024 Patient seen and examined at bedside, daughter at bedside as well Patient is awake alert pleasant and relaxed, she is mildly confused about time place and person however she could tell me she is in the hospital although she could not know which 1. She could not remember the name of her daughter but not the president. She follows commands and looks to have insight to her illness at least partially Physically she denies any specific complaints to me, she denies chest pain or dyspnea She denies abdominal pain or tenderness. No vomiting. No diarrhea. No urinary complaint. Patient has Frod catheter. Urine analysis was negative on admission No specific weakness or numbness or dizziness. She had some fever 2 days ago 101 on 04/02, currently has low-grade fever 99.7 Most likely patient has ongoing dementia complicated by mild metabolic en cephalopathy. Patient already evaluated by psychiatrist and switch her to Seroquel 25 at bedtime and as needed Hemoglobin A1c 5.7, B12 borderline 387, TSH is low but normal T4 Chest x-ray showing mild pulmonary vascular congestion suspected with cardiomegaly. CT of the brain and of the cervical spine is negative for acute process and EKG showing ventricular paced rhythm Labs reviewed showing unremarkable CBC, BMP liver enzymes. Recommend to repeat urine analysis, also will check respiratory viruses. Blood culture is ordered and is pending Review of systems CONSTITUTIONAL: No fever, no malaise, no fatigue. HEENT: No recent visual problems or hearing problems. Denied any sore throat. CARDIOVASCULAR: No orthopnea, PND, no palpitations, no syncope. PULMONARY: No shortness of breath, no cough, no hemoptysis. GASTROINTESTINAL: No diarrhea, no nausea, no vomiting, no abdominal pain. No rmoactive bowel sounds. NEUROLOGICAL: No headaches, no weakness, no numbness. HEMATOLOGICAL: Denies any bleeding or petechiae. GENITOURINARY: Denies any burning micturition, frequency, or urgency. MUSCULOSKELETAL/RHEUMATOLOGICAL: Denies any joint pain, swelling, or any muscle pain. ENDOCRINE: Denies any polyuria or polydipsia. Active Medications Generic Name Dose Route Start Last Admin Trade Name Freq PRN Reason Stop Dose Admin Acetaminophen 650 mg 03/31/24 16:50 04/04/24 19:44 Acetaminophen Tab 325 Mg Tab PO 650 mg Q6HR PRN Administration Mild Pain or Fever > 100.5 Aspirin 81 mg 04/01/24 09:00 04/05/24 08:56 Aspirin 81 Mg PO 81 mg DAILY JEFERSON Administration Cholestyramine Resin 4 gm 04/01/24 09:00 04/05/24 08:56 Cholestyramine (With Sugar) 4 Gm Packet PO 4 gm DAILY JEFERSON Administration Lisinopril/HCTZ 1 each 04/01/24 09:00 04/05/24 08:56 Lisinopril-Hctz 10-12.5 Mg 1 Each Tab PO 1 each DAILY JEFERSON Administration Levothyroxine Sodium 88 mcg 04/01/24 06:30 04/05/24 06:32 Levothyroxine 88 Mcg Tab PO 88 mcg 0630 JEFERSON Administration Loratadine 10 mg 04/01/24 09:00 04/05/24 08:56 Loratadine 10 Mg Tab PO 10 mg DAILY JEFERSON Administration Melatonin 3 mg 04/01/24 21:00 04/04/24 19:43 Melatonin 3 Mg Tablet PO 3 mg HS PRN Administration Insomnia Naloxone HCl 0.2 mg 03/31/24 16:50 Naloxone 0.4 Mg/Ml 1 Ml Vial IV Q2M PRN Opioid Reversal Olanzapine 2.5 mg 04/01/24 14:19 04/02/24 17:58 Olanzapine 10 Mg Vial IM 2.5 mg BID PRN Administration Severe Agitation Quetiapine Fumarate 25 mg 03/31/24 21:00 04/04/24 19:43 Quetiapine 25 Mg Tab PO 25 mg HS JEFERSON Administration Quetiapine Fumarate 25 mg 04/01/24 14:19 04/05/24 02:22 Quetiapine 25 Mg Tab PO 25 mg BID PRN Administration agitation/psychosis Objective - Vital Signs Vital signs: Vital Signs Temp 98.4 F 04/05/24 07:29 Pulse 77 04/05/24 07:29 Resp 16 04/05/24 07:29 BP 150/73 04/05/24 07:29 Pulse Ox 95 04/05/24 07:29 FiO2 Intake & Output 04/04/24 04/05/24 04/05/24 18:59 06:59 18:59 Output Total 1400 1100 Balance -1400 -1100 Output: Urine 1400 1100 Other: Voiding Method Indwelling Catheter Indwelling Catheter # Voids 1 - Exam -GENERAL: The patient is alert and oriented x1-2 partially, not in any acute distress. Well developed, well nourished. HEENT: Pupils are round and equally reacting to light. EOMI. No scleral icterus. No conjunctival pallor. Normocephalic, atraumatic. No pharyngeal erythema. No thyromegaly. CARDIOVASCULAR: S1 and S2 present. No murmurs, rubs, or gallops. PULMONARY: Chest is clear to auscultation, no wheezing , no crackles. ABDOMEN: Soft, nontender, nondistended, normoactive bowel sounds. No palpable organomegaly. MUSCULOSKELETAL: No joint swelling or deformity. EXTREMITIES: No cyanosis, clubbing, or pedal edema. NEUROLOGICAL: Gross neurological examination did not reveal any focal deficits. SKIN: No rashes. no petechiae. - Labs CBC & Chem 7: 04/05/24 04:06 04/05/24 04:06 Labs: Abnormal Lab Results - Last 24 Hours (Table) 04/05/24 04/05/24 Range/Units 04:06 04:06 Hgb 11.9 L (12.0-15.0) g/dL Hct 36.8 L (37.2-46.3) % Lymphocytes # 0.84 L (0.90-5.00) X 10*3/uL Potassium 3.4 L (3.5-5.5) mmol/L Est GFR (CKD-EPI) 43 L (>=60) Glucose 131 H (70-110) mg/dL Assessment and Plan Assessment: Altered mental status, mild most likely metabolic/toxic encephalopathy Fever, no obvious source of infection, Possible dementia Hypertension Hyperlipidemia Hypothyroidism History of pacemaker placement due to morbid type II second-degree AV block. Plan: keep monitoring off antibiotic. Recheck urine analysis and viral test Follow-up blood culture Psychiatry and neurology evaluation Labs and medication were reviewed.. Continue same treatment. Continue with symptomatic treatment. Resume home medication. Monitor labs and vitals. DVT and GI prophylaxis. Further recommendations as per clinical course of the patient DVT prophylaxis: Subcutaneous heparin GI Prophylaxis: Pepcid PT/OT: Pending Prognosis is guarded
--- NOTE | 2024-04-05 14:32 | P.PN ---
Progress Note - Text Progress Note Date: 04/05/24 Interval history: Patient was seen today for psychiatric follow-up regarding patient's delirium and underlying dementia. Patient's family members apparently had several questions about her medications and her status. Nurse claims that patient has not been sleeping well at nighttime, about 2 hours, has not been eating that well at all and has been agitated at times. Utility Inspector spoke with patient's family her daughter and son outside the room and answered questions. Patient was laying in bed today, appeared to be awake, was fairly talkative, mildly improving attention span, she did demonstrate some confabulation she knew her full name including her maiden name. She knew her age as well. Does not know her location and the date today. She denies any suicidal homicidal ideations intent or plan. Denies any auditory or visual hallucinations. MENTAL STATUS EXAM: General Appearance: Patient appears to be wearing glasses, fairly somnolent, laying in bed, stated age is attempts to cooperate. Patient appears to have fair hygiene and grooming wearing hospital gown with fair eye contact. Behavior: Patient is calmly lying in bed without any agitated behavior. Attempts to cooperate. Improved attention span Speech: Patient's speech is fluent and nonpressured. Hesitant, rambling at ti mes Mood/Affect: Patient reports their mood is "ok", affect is congruent Suicidality/Homicidality: Patient denies having any suicidal or homicidal ideation intent or plan. Perceptions: Patient denies any visual hallucinations and denies any auditory hallucinations Though content/process: [place], poverty of content, confabulating. Memory and concentration: AO to name only, she only follows some commands, poor attention span, improving mildly. Cannot spell "WORLD" backwards Judgment and insight: Chronically limited, improving mildly IMPRESSIONS: Delirium, etiology unknown underlying Major neurocognitive disorder PLAN: -At this time patient DOES NOT meet criteria for inpatient psychiatric admission. -Patient DOES NOT have decision making capacity at this time and is unable to reason through and communicate/appreciate the risks, benefits and alternatives to treatment. -Delirium precautions recommended with patient including - avoiding use of narcotics and ELECTROMECHANICAL TECHNOLOGIST sedatives, limit anticholinergic medications when possible, frequent re-orientation, minimize use of restraints, open window shades during the day and close them at night -Would recommend the following medication changes/additions: Please avoid all benzodiazepines, antihistamines and steroids, opiates as these will increase patient's likelihood of more confusion and delirium. Increased Seroquel 50 mg nightly for sleep/delirium/agitation, with Seroquel 25 mg three times daily as needed p.o. for agitation/insomnia, for severe aggression and unable to tolerate or take p.o., Zyprexa IM as needed. -Communicated plan to patient's manager rn case and patient's nurse. artist relationship manager currently looking at placement options available for patient upon discharge. -psychiatry will continue to follow along as needed -Please contact with any questions.
[2024-04-05] MEDS: QUEtiapine 25 MG TAB PO PRN (14:49)
[2024-04-05] MEDS: ESCITALOPRAM 5 MG TAB PO STA (14:52)
[2024-04-05] MEDS ORDERED: Potassium Replacement Protocol 1 EACH MISC MISCELLANE PRN (14:56)
[2024-04-05 15:34] LABS: Appearance,Urine Cloudy (Clear); Bacteria,Urine Few /hpf; Bilirubin,Urine Negative (Negative); Blood,Urine Moderate (Negative); Budding Yeast,Urine Rare /hpf; Color,Urine Yellow; Glucose,Urine (UA) Negative (Negative); Hyaline Casts,Urine 2 /lpf (0-2); Ketones,Urine Negative (Negative); Leukocyte Esterase,Urine Large (Negative); Mucus,Urine Few /hpf; Nitrite,Urine Negative (Negative); PH, Urine 5.5 (5.0-8.0); Protein,Urine 2+ (Negative); RBC,Urine >182 /hpf (0-5); Specific Gravity,Urine 1.022 (1.001-1.035); Squamous Epithelial Cell,Urine <1 /hpf (0-4); Urobilinogen,Urine <2.0 mg/dL (<2.0); WBC,Urine 48 /hpf (0-5)
[2024-04-05] MEDS: POTASSIUM CHLORIDE ER 20 MEQ TAB.ER PO SCH (16:42)
--- NOTE | 2024-04-05 19:40 | P.CNNES ---
History of Present Illness Consult date: 04/05/24 Requesting physician: Michael Bowman Reason for Consult: AMS, sharp decline from baseline. History of Present Illness: Patient is a 80-year-old right-handed female came to the hospital by ambulance on 03/26/2024 for altered mental status. Patient's son, and daughter and granddaughter were present who provided with a history. Patient has been diagnosed with dementia about 2 or 3 years ago, slightly getting worse. She at baseline is fairly well alert and oriented, although patient has intermittent periods of confusion, with dementia and sundowners. She was still able to care for herself. She does get sometimes hallucinations at night, see kids. The hallucinations were present last summer, when she was seeing children with no leg, or children outside, but then went away and his reappeared in the last couple months. Patient has been on Lexapro for last 2 years. Patient was seen by primary physician for worsening anxiety, sundowning, not sleeping at night, who started her on Ativan 0.5 mg twice daily on 03/26/2024. Her condition has been deteriorating since then. About 10 days ago, patient was still functional, was walking, holding her great grandson, walking with her walker. However in the last 7 days, patient has got much worse. She has history of sporadic falls, like once a month, but in the last 7 to 10 days, she has fell about 8 times. She has not hit her head with these falls. Patient has been on Xanax in the past taken as needed. In the last 7 days patient has become very much confused, more more agitated, "out of it". Sometimes she gets combative which she has never done before. Sometimes she gets mad and swears that she also has never done before. Patient has some pieces of lucidity when she would realize what was going on but then she becomes restless, tries to rip off the lines. She sometimes cries a lot. Family has noted that patient does not speak any sen sible speech, has developed aphasia, getting worse. She could not form sentences. No facial droop or any focal weakness tingling or numbness noticed. They have noticed that patient has forgotten how to walk. Patient's granddaughter has noticed that her personality has changed in the last 7 to 10 days. She had multiple falls in the last 10 days. Patient has not seen a neurologist. As per patient's daughter, Aricept was tried for only couple nights but produced vivid nightmares therefore it was discontinued. Patient also was not open to different treatments and would resist as per patient's daughter. Never tried Namenda. No history of tobacco alcohol use. No diabetes. Patient does have a pacemaker. As per EMS flowsheet, when they arrived, patient was sitting on the back deck with daughter who is also a primary care provider. Daughter states that today her mother is very difficult to manage and states concerned that her daughter somehow trying to get rid of her. Patient is more confused than usual, verbally aggressive towards daughter and uncooperative. Patient is not physically aggressive but is very angry towards daughter. Patient is alert and confused which is normal due to her dementia history. She was not in any distress. Daughter mentions that patient has been falling more often than usual recently. She is not on any blood thinners Patient's blood test shows normal CBC, electrolytes, BUN 11.5, creatinine 1.0. B12 387, folate 694, TSH is mildly elevated 5.57. Free T4 normal. UA shows large amount of leukocyte esterase, more than 1 8 RBC, 48 WBC. Influenza screen, RSV, coronavirus PCR negative. CT head revealed no acute intracranial process. Nonspecific white changes, likely secondary to chronic small vessel ischemic disease. I personally reviewed CT head agree with the findings. CT of the cervical spine showed mild multilevel degenerative disc disease. Left thyroid gland with nodules some of these may have been biopsied on prior exam. Patient at present denies any headache, no chest pain, states feels "fine". However then she starts rambling, talking in unintelligible speech difficult to understand. She is speaking with very low volume. Patient lives by herself in a handicap assessable house, although patient's son keeps a very close watch on her. Patient has been seen by psychiatrist, and suspecting delirium, unknown andrew ology. Also major neurocognitive disorder. Avoidance of benzodiazepine, antihistamine and steroids, opiates are recommended. Ativan was discontinued. It was recommended to continue Seroquel 25 mg nightly for agitation. Also added Seroquel 25 mg twice daily as needed for agitation. Also confirmed Zyprexa IM as needed. Patient now has developed acute UTI as well while in the hospital. Review of Systems As mentioned above in HPI in detail, all pertinent positives and negatives. Past Medical History Past Medical History: Dementia, GERD/Reflux, Hyperlipidemia, Hypertension, Thyroid Disorder Additional Past Medical History / Comment(s): mobitz type 2 second degree heart block, vertigo other hx per old chart: incont of urine, hiatal hernia, rectocele/cystocele, MURMUR, HIATAL HERNIA,EARLY DEMENTIA, WAS TOLD 2 YEARS AGO HAD VERY BEGINNINGS OF GLAUCOMA, COVID History of Any Multi-Drug Resistant Organisms: None Reported Past Surgical History: Bladder Surgery, Heart Catheterization, Hysterectomy, Pacemaker Additional Past Surgical History / Comment(s): pacemaker-2014 Past Anesthesia/Blood Transfusion Reactions: No Reported Reaction Additional Past Anesthesia/Blood Transfusion Reaction / Comment(s): 40 YEARS AGO BLOOD TRANSFUSION AFTER CHILDBIRTH, VERTIGO Type of Cardiac Device: Permanent Pacemaker Device Placement Date:: 2014 Past Psychological History: No Psychological Hx Reported, Anxiety Smoking Status: Former smoker Past Alcohol Use History: None Reported Past Drug Use History: None Reported - Past Family History Father Family Medical History: Cancer Additional Family Medical History / Comment(s): COLON CANCER Mother Family Medical History: Congestive Heart Failure (CHF), Myocardial Infarction ([place]) Medications and Allergies Home Medications Medication Instructions Recorded Confirmed Type Levothyroxine Sodium [Synthroid] 88 mcg PO DAILY 09/17/14 03/31/24 History Aspirin 81 mg PO DAILY 05/03/15 03/31/24 History Lisinopril-Hctz 10-12.5 mg 1 tab PO DAILY 05/03/15 03/31/24 History [Zestoretic 10-12.5] Escitalopram Oxalate [Lexapro] 10 mg PO BID 05/31/22 03/31/24 History Cetirizine HCl [Zyrtec] 10 mg PO DAILY 03/31/24 03/31/24 History Cholestyramine (with Sugar) 4 gm PO DAILY 03/31/24 03/31/24 History [Cholestyramine Packet] LORazepam [Ativan] 0.5 mg PO BID PRN 03/31/24 03/31/24 History Allergies Allergy/AdvReac Type Severity Reaction Status Date / Time Sulfa (Sulfonamide Allergy Unknown Verified 03/31/24 14:47 Antibiotics) Iodinated Contrast Media AdvReac Abdominal Verified 03/31/24 14:47 [Iodinated Contrast Media - Pain IV Dye] shellfish derived AdvReac Abdominal Verified 03/31/24 14:47 Pain Physical Examination - Vital Signs Vital Signs: Vital Signs Temp Pulse Resp BP Pulse Ox 04/05/24 13:03 98.3 F 88 18 148/76 98 04/05/24 07:29 98.4 F 77 16 150/73 95 04/05/24 01:46 98.6 F 78 18 144/70 93 L 04/04/24 20:00 99.7 F H 98 130/67 93 L Intake and Output 04/05/24 04/05/24 04/05/24 06:59 14:59 22:59 Output Total 1100 225 Balance -1100 -225 Output: Urine 1100 225 Other: Voiding Method Indwelling Catheter Patient is an elderly female, who is encephalopathic, delirious, laying in the bed, in no acute distress. Patient is somnolent. Patient on calling her name, does wake up, speaks very slowly, sometimes intelligible, but often gibberish, unintelligible speech. Patient states the month of October and the year is 1923. She states the [place] is [place]. She then speaks unintelligible. She was not able to recognize her daughter or granddaughter, although was able to recognize her other daughter who came her name is Brittany. Patient speaks with very low tone. Very difficult to understand. Attention, concentration and fund of knowledge are all severely impaired. Patient had difficulty naming objects, although spontaneously she was able to name knuckles and earlobe. She could not repeat sentence, would have concrete thinking. On cranial nerve examination, pupils are equal, round and reacting to light, visual nicolas are full on confrontation, with no neglect on double simultaneous stimulation. Extraocular muscles are intact with no nystagmus. Face is symmetric, tongue protrudes to the midline. Palatal elevation and sensation normal, hearing is slightly decreased and shoulder shrug normal, facial sensation normal. On muscle strength testing, there is no pronator drift. No myoclonic jerks noted. Some tremulousness very mild. Patient did not cooperate well with examination. Her p d driver, biceps and triceps appears normal. Deltoids are equal. Patient's ankle dorsiflexion is normal. Hip flexion also appears normal bilaterally. Deep tendon reflexes are symmetric, 1+ and plantars are withdrawal. Sensory to touch is equal with no neglect on double simultaneous stimulation. Cerebellar function showed no ataxia for [id number] testing. Tone is moderately increased with cogwheeling and bulk of muscles normal. No evidence of tremors at rest. Gait deferred.. On general examination, there is no carotid bruit or murmur, S1-S2 audible. Chest is clear on consultation. Abdomen is soft nontender. No organomegaly, bowel sounds present. Peripheral pulses are present. No peripheral edema. Results - Laboratory Findings CBC and BMP: 04/05/24 04:06 04/05/24 04:06 Abnormal Lab Findings: Abnormal Labs 03/31/24 04/01/24 04/02/24 14:03 12:15 04:56 Hgb Hct Lymphocytes # Potassium Chloride 110 H BUN 18 H Est GFR (CKD-EPI) 54 L BUN/Creatinine Ratio 11.50 L Glucose TSH 5.570 H Urine Appearance Urine Protein Urine Blood Ur Leukocyte Esterase Urine RBC Urine WBC Urine Bacteria Urine Mucus Urine Yeast (Budding) 04/05/24 04/05/24 04/05/24 04:06 04:06 14:55 Hgb 11.9 L Hct 36.8 L Lymphocytes # 0.84 L Potassium 3.4 L Chloride BUN Est GFR (CKD-EPI) 43 L BUN/Creatinine Ratio Glucose 131 H TSH Urine Appearance Cloudy H Urine Protein 2+ H Urine Blood Moderate H Ur Leukocyte Esterase Large H Urine RBC >182 H Urine WBC 48 H Urine Bacteria Few H Urine Mucus Few H Urine Yeast (Budding) Rare H Assessment and Plan Assessment: * Delirium, probably due to combination of factors including worsening anxiety, recent use of Ativan, probable worsening dementia. Patient has developed acute UTI in the hospital as well. * Confusion, aphasia, likely due to delirium, on pre-existing dementia. * Dementia, at least moderate, or moderate to severe degree. * Hypertension * Hyperlipidemia * Pacemaker Plan: * Check EEG to evaluate for encephalopathy, rule out any epileptiform activity * Patient cannot have MRI of the brain due to presence of pacemaker. * Agree with stopping Ativan. * Carotid Doppler, rule out stenosis. * Hemoglobin A1c 5.7 * Lipid panel with cholesterol 200, LDL 121, HDL 59, triglycerides 94. Consider starting statins. * Continue aspirin. * Psychiatry also on board, initiated Seroquel 50 mg at bedtime scheduled, and 25 mg twice daily as needed. * Consider starting Namenda 5 mg twice daily. Patient previously had vivid dreams from Aricept. We will discuss with psychiatry, if okay to add Namenda with other psych medications (as per family's concerns) * B12 387, folate > 24.0, TSH is 5.57, with normal free T4 1.35. We will defer IM to address abnormal thyroid functions. B12 is borderline, we will start B12 replacement. * Patient currently on ceftriaxone for acute UTI. * Neurology will follow. Discussed with family members in detail. * Thank you for the consult. Time with Patient: Greater than 30
[2024-04-05] MEDS: QUEtiapine 50 MG TAB PO SCH (20:07)
[2024-04-05] MEDS: MELATONIN 5 MG TABLET PO PRN (20:07)
[2024-04-05] MEDS: CYANOCOBALAMIN 500 MCG TAB PO SCH (20:07)
[2024-04-05] MEDS: FAMOTIDINE 20 MG/2 ML VIAL IV SCH (20:08)
[2024-04-05] MEDS: HEPARIN SODIUM,PORCINE 5,000 UNIT/ML 1 ML VIAL SQ SCH (20:08)
[2024-04-05] MEDS ORDERED: MELATONIN 5 MG TABLET PO SCH (21:00)
--- NOTE | 2024-04-05 21:03 | US ---
EXAMINATION TYPE: US carotid duplex BILAT DATE OF EXAM: 04/05/2024 COMPARISON: NONE CLINICAL INDICATION: Female, 89 years old with history of Aphasia, CVA vs dementia; aphasia TECHNIQUE: Carotid duplex ultrasound examination. Indirect Doppler criteria was utilized. FINDINGS: EXAM MEASUREMENTS: RIGHT: Peak Systolic Velocity (PSV) cm/sec ----- Right CCA: 110 ----- Right ICA: 95.1 ----- Right ECA: 159 ICA/CCA ratio: 0.86 RIGHT: End Diastole cm/sec ----- Right CCA: 12.7 ----- Right ICA: 9.38 ----- Right ECA: 8.1 LEFT: Peak Systolic Velocity (PSV) cm/sec ----- Left CCA: 118 ----- Left ICA: 100 ----- Left ECA: 150 ICA/CCA ratio: 0.85 LEFT: End Diastole cm/sec ----- Left CCA: 15.7 ----- Left ICA: 8.7 ----- Left ECA: 9.1 VERTEBRALS (direction of flow): Right Vertebral: Retrograde Left Vertebral: Antegrade Rhythm: Normal OPERATIONS MANAGER ASSISTANT NOTES: Plaque seen in left bulb and left prox ICA IMPRESSION: Less than 50% stenosis of the bilateral carotid bifurcations. Criteria for Assigning % of Stenosis / Diameter reduction (Estimation based on the indirect measurements of the internal carotid artery velocities (ICA PSV). 1. Normal (no stenosis)=ICA PSV < 125 cm/s: ratio < 2.0: ICA EDV<40 cm/s. 2. Less than 50% stenosis=ICA PSV < 125 cm/s: ratio < 2.0: ICA EDV<40 cm/s. 3. 50 to 69% stenosis=ICA PSV of 125 to 230 cm/s: ration 2.0 ? 4.0: ICA EDV 40-100 cm/s. 4. Greater than 70% stenosis to near occlusion= ICA PSV > 230 cm/s: ratio > 4.0: ICA EDV > 100 cm/s. 5. Near occlusion= ICA PSV velocities may be low or undetectable: variable ratio and ICA EDV. 6. Total occlusion=unable to detect flow.
[2024-04-06] MEDS: ESCITALOPRAM 10 MG TAB PO SCH (09:54)
--- NOTE | 2024-04-06 13:48 | P.PN ---
Progress Note - Text Progress Note Date: 04/06/24 Interval history: Patient was seen today for psychiatric follow-up regarding patient's delirium and underlying dementia. Patient's daughter was in the room, had several questions about patient's medications and condition. Patient's nurse states that patient is being treated with antibiotics for a UTI, had an EEG done earlier. Nurse also claims that patient did awaken at nighttime and received a as needed of medications and went back to bed, has been mildly anxious and fidgeting this morning, recently received another as needed. Was alert today, did not know who marketing underwriter was, he was able to identify her daughter at her side, knew her first name and her name, does not know where she is or today's date. She seems to be mildly confused today, attempts to answer questions, confabulating a bit. Denies any depression or anxiety. She denies any suicidal homicidal ideations intent or plan. Denies any auditory or visual hallucinations. MENTAL STATUS EXAM: General Appearance: Patient appears to be wearing glasses, fairly more awake today, laying in bed, stated age is attempts to cooperate. Patient appears to have fair hygiene and grooming wearing hospital gown with fair eye contact. Behavior: Patient is calmly lying in bed without any agitated behavior. Attempts to cooperate. Improved attention span, mildly confused Speech: Patient's speech is fluent and nonpressured. Hesitant, Mood/Affect: Patient reports their mood is "ok", affect is congruent Suicidality/Homicidality: Patient denies having any suicidal or homicidal ideation intent or plan. Perceptions: Patient denies any visual hallucinations and denies any auditory hallucinations Though content/process: [place], poverty of content, confabulating. Memory and concentration: AO to name only, she only follows some commands, poor attention span, improving mildly. Cannot spell "WORLD" backwards Judgment and insight: Chronically limited, improving mildly IMPRESSIONS: Delirium, etiology unknown underlying Major neurocognitive disorder PLAN: -At this time patient DOES NOT meet criteria for inpatient psychiatric admission. -Patient DOES NOT have decision making capacity at this time and is unable to reason through and communicate/appreciate the risks, benefits and alternatives to treatment. -Delirium precautions recommended with patient including - avoiding use of narcotics and [employer]ACH sedatives, limit anticholinergic medications when possible, frequent re-orientation, minimize use of restraints, open window shades during the day and close them at night -Would recommend the following medication changes/additions: Please avoid all benzodiazepines, antihistamines and steroids, opiates as these will increase patient's likelihood of more confusion and delirium. Seroquel 50 mg nightly for sleep/delirium/agitation, with Seroquel 25 mg three times daily as needed p.o. for agitation/insomnia, for severe aggression and unable to tolerate or take p.o., Zyprexa IM as needed. Increase melatonin to 10 mg nightly for sleep. -Communicated plan to patient's sample case porter and patient's nurse. manager of housekeeping currently looking at placement options available for patient upon discharge. -psychiatry will continue to follow along as needed -Please contact with any questions.
[2024-04-06] MEDS: MEMANTINE 5 MG TAB PO SCH (21:44)
[2024-04-06] MEDS: MELATONIN 5 MG TABLET PO SCH (21:44)
--- NOTE | 2024-04-06 23:57 | P.PN ---
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 She has been having multiple falls at least 6 during the past few weeks. Patient's functional status has been declining and family is unable to take care of her at home. Patient has been agitated and trying to get out of the bed. Otherwise patient is ambulatory. No nausea vomiting or diarrhea. Denies any recent illnesses as per family. Chest x-ray showed cardiomegaly and mild pulm vascular congestion. Cardiac BNP for CHF. Pelvic x-ray showed no acute osseous pathology. Mild degeneration changes of the hip. CT head and cervical spine showed no acute intracranial process. Nonspecific white matter changes likely secondary to chronic small vessel ischemic disease. No evidence of cervical spine fracture. Mild multilevel degenerative disc disease. Left thyroid gland with nodules some of this may have been biopsied on prior exam in 2018.. Laboratory data showed WBC 6.4 hemoglobin 12.7 and platelets 292 Sodium 140 potassium 4.0, chloride 110 bicarb is 24 BUN 18 and creatinine 1.04 and blood sugar 89 Urinalysis is negative for infection. Patient is seen and evaluated with daughters at bedside; patient continues to be confused and restless -- Has been placed on Seroquel 25 mg nightly with Seroquel 25 mg twice daily as needed for agitation and psychosis; can take Zyprexa IM Patient's condition discussed with family members in great detail; daughters are requesting a formal neurology evaluation; we will consult neurology 04/05/2024 Patient seen and examined at bedside, daughter at bedside as well Patient is awake alert pleasant and relaxed, she is mildly confused about time place and person however she could tell me she is in the hospital although she could not know which 1. She could not remember the name of her daughter but not the president. She follows commands and looks to have insight to her illness at least partially Physically she denies any specific complaints to me, she denies chest pain or dyspnea She denies abdominal pain or tenderness. No vomiting. No diarrhea. No urinary complaint. Patient has Ford catheter. Urine analysis was negative on admission No specific weakness or numbness or dizziness. She had some fever 2 days ago 101 on 04/02, currently has low-grade fever 99.7 Most likely patient has ongoing dementia complicated by mild metabolic en cephalopathy. Patient already evaluated by psychiatrist and switch her to Seroquel 25 at bedtime and as needed Hemoglobin A1c 5.7, B12 borderline 387, TSH is low but normal T4 Chest x-ray showing mild pulmonary vascular congestion suspected with cardiomegaly. CT of the brain and of the cervical spine is negative for acute process and EKG showing ventricular paced rhythm Labs reviewed showing unremarkable CBC, BMP liver enzymes. Recommend to repeat urine analysis, also will check respiratory viruses. Blood culture is ordered and is pending 04/06/2024 Patient clinically is improving, she is less confused, appropriate and answers questions as indicated No much urinary symptoms, no suprapubic tenderness Urine analysis is highly suspicious for infection, urine and blood culture pending Currently on Rocephin EEG per neurologist Seroquel increased to 50 mg per psychiatrist. Patient is on Lexapro Discussed the case with the daughter, she is agreeable with the plan Review of systems CONSTITUTIONAL: No fever, no malaise, no fatigue. HEENT: No recent visual problems or hearing problems. Denied any sore throat. CARDIOVASCULAR: No orthopnea, PND, no palpitations, no syncope. PULMONARY: No shortness of breath, no cough, no hemoptysis. GASTROINTESTINAL: No diarrhea, no nausea, no vomiting, no abdominal pain. Normoactive bowel sounds. NEUROLOGICAL: No headaches, no weakness, no numbness. HEMATOLOGICAL: Denies any bleeding or petechiae. GENITOURINARY: Denies any burning micturition, frequency, or urgency. MUSCULOSKELETAL/RHEUMATOLOGICAL: Denies any joint pain, swelling, or any muscle pain. ENDOCRINE: Denies any polyuria or polydipsia. Active Medications Generic Name Dose Route Start Last Admin Trade Name Freq PRN Reason Stop Dose Admin Acetaminophen 650 mg 03/31/24 16:50 04/06/24 15:26 Acetaminophen Tab 325 Mg Tab PO 650 mg Q6HR PRN Administration Mild Pain or Fever > 100.5 Aspirin 81 mg 04/01/24 09:00 04/06/24 09:52 Aspirin 81 Mg PO 81 mg DAILY JEFERSON Administration Cholestyramine Resin 4 gm 04/01/24 09:00 04/06/24 09:53 Cholestyramine (With Sugar) 4 Gm Packet PO Not Given DAILY JEFERSON Cyanocobalamin 1,000 mcg 04/05/24 19:45 04/06/24 09:53 Cyanocobalamin 500 Mcg Tab PO 1,000 mcg DAILY JEFERSON Administration Escitalopram Oxalate 10 mg 04/06/24 09:00 04/06/24 09:54 Escitalopram 10 Mg Tab PO 10 mg DAILY JEFERSON Administration Famotidine 10 mg 04/05/24 21:00 04/06/24 20:18 Famotidine 20 Mg/2 Ml Vial IV 10 mg Q12HR JEFERSON Administration Lisinopril/HCTZ 1 each 04/01/24 09:00 04/06/24 09:54 Lisinopril-Hctz 10-12.5 Mg 1 Each Tab PO 1 each DAILY JEFERSON Administration Heparin Sodium (Porcine) 5,000 unit 04/05/24 21:00 04/06/24 21:44 Heparin Sodium,Porcine 5,000 Unit/Ml 1 Ml Vial SQ 5,000 unit Q12HR JEFERSON Administration Ceftriaxone Sodium 1 gm/ 50 mls @ 100 mls/hr 04/05/24 16:15 04/06/24 09:52 Sodium Chloride IVPB 100 mls/hr Q24HR JEFERSON Administration Protocol Levothyroxine Sodium 88 mcg 04/01/24 06:30 04/06/24 05:55 Levothyroxine 88 Mcg Tab PO 88 mcg 0630 JEFERSON Administration Loratadine 10 mg 04/01/24 09:00 04/06/24 09:55 Loratadine 10 Mg Tab PO 10 mg DAILY JEFERSON Administration Melatonin 10 mg 04/06/24 21:00 04/06/24 21:52 Melatonin 5 Mg Tablet PO Not Given HS JEFERSON Memantine 5 mg 04/06/24 21:00 04/06/24 21:52 Memantine 5 Mg Tab PO Not Given BID JEFERSON Miscellaneous Information 1 each 04/05/24 14:56 Potassium Replacement Protocol 1 Each Misc MISCELLANE DAILY PRN Per Protocol Protocol Naloxone HCl 0.2 mg 03/31/24 16:50 Naloxone 0.4 Mg/Ml 1 Ml Vial IV Q2M PRN Opioid Reversal Olanzapine 2.5 mg 04/01/24 14:19 04/06/24 15:55 Olanzapine 10 Mg Vial IM 2.5 mg BID PRN Administration Severe Agitation Quetiapine Fumarate 50 mg 04/05/24 21:00 04/06/24 21:52 Quetiapine 50 Mg Tab PO Not Given HS JEFERSON Quetiapine Fumarate 25 mg 04/05/24 14:26 04/06/24 12:45 Quetiapine 25 Mg Tab PO 25 mg TID PRN Administration agitation/insomnia Objective - Vital Signs Vital signs: Vital Signs Temp 99.2 F 04/06/24 13:34 Pulse 87 04/06/24 13:34 Resp 16 04/06/24 13:34 BP 119/78 04/06/24 13:34 Pulse Ox 98 04/06/24 13:34 FiO2 Intake & Output 04/05/24 04/06/24 04/06/24 18:59 06:59 18:59 Output Total 225 Balance -225 Output: Urine 225 Other: Voiding Method Indwelling Catheter Indwelling Catheter Indwelling Catheter - Exam -GENERAL: The patient is alert and oriented x1-2 partially, not in any acute distress. Well developed, well nourished. HEENT: Pupils are round and equally reacting to light. EOMI. No scleral icterus. No conjunctival pallor. Normocephalic, atraumatic. No pharyngeal erythema. No thyromegaly. CARDIOVASCULAR: S1 and S2 present. No murmurs, rubs, or gallops. PULMONARY: Chest is clear to auscultation, no wheezing , no crackles. ABDOMEN: Soft, nontender, nondistended, normoactive bowel sounds. No palpable organomegaly. MUSCULOSKELETAL: No joint swelling or deformity. EXTREMITIES: No cyanosis, clubbing, or pedal edema. NEUROLOGICAL: Gross neurological examination did not reveal any focal deficits. SKIN: No rashes. no petechiae. - Labs CBC & Chem 7: 04/05/24 04:06 04/05/24 04:06 Labs: Abnormal Lab Results - Last 24 Hours (Table) 04/05/24 Range/Units 14:55 Urine Appearance Cloudy H (Clear) Urine Protein 2+ H (Negative) Urine Blood Moderate H (Negative) Ur Leukocyte Esterase Large H (Negative) Urine RBC >182 H (0-5) /hpf Urine WBC 48 H (0-5) /hpf Urine Bacteria Few H (None) /hpf Urine Mucus Few H (None) /hpf Urine Yeast (Budding) Rare H (None) /hpf Microbiology - Last 24 Hours (Table) 04/05/24 04:06 Blood Culture - Preliminary Blood Assessment and Plan Assessment: Altered mental status, mild most likely metabolic/toxic encephalopathy Fever, no secondary to acute urinary tract infection Possible dementia Hypertension Hyperlipidemia Hypothyroidism History of pacemaker placement due to morbid type II second-degree AV block. Plan: Continue with ceftriaxone Follow-up urine culture Follow-up blood culture Psychiatry and neurology evaluation Labs and medication were reviewed.. Continue same treatment. Continue with symptomatic treatment. Resume home medication. Monitor labs and vitals. DVT and GI prophylaxis. Further recommendations as per clinical course of the patient DVT prophylaxis: Subcutaneous heparin GI Prophylaxis: Pepcid PT/OT: Pending Prognosis is guarded
--- NOTE | 2024-04-07 01:42 | EEG ---
ELECTROENCEPHALOGRAM REPORT PREAMBLE: This is an 89-year-old female with history of dementia, came with delirium. CURRENT MEDICATIONS: 1. Ceftriaxone. 2. Vitamin B12. 3. Lexapro. 4. Synthroid. 5. Zestoretic. 6. Melatonin. 7. Xifaxan. 8. Seroquel. EEG FINDINGS: This is a 21-channel digital EEG recorded with video component, utilizing 10/20 international system with referential and bipolar montages. Background consists of well-developed, but poorly regulated, predominantly 5 to 7 hertz theta activity seen diffusely in bihemispheric region. Background does not seem to be reactive to eye opening or closing. Photic driving response was not seen. Different stages of sleep were not seen. No focal or generalized epileptiform activity was seen. IMPRESSION: This is an abnormal EEG due to background slowing of moderate degree. This is suggestive of generalized cerebral dysfunction as can be seen with toxic metabolic encephalopathy or related to diffuse structural brain abnormality. Clinical correlation is recommended. No epileptiform activity was seen. MMODL / IJN: [id number] /
--- NOTE | 2024-04-07 08:22 | US ---
EXAMINATION TYPE: US kidneys/renal and bladder DATE OF EXAM: 04/07/2024 COMPARISON: NONE CLINICAL INDICATION: Female, 89 years old with history of sever uti; UTI EXAM MEASUREMENTS: Right Kidney: 10.0 x 4.3 x 4.0 cm Left Kidney: 9.4 x 4.6 x 4.5 cm Exam is very limited due to rib shadowing and gas. Right Kidney: Renal pelvis appears prominent. Anechoic area seen lower pole: 1.5 x 1.5 x 1.3 cm. Left Kidney: No hydronephrosis or masses seen Bladder: Catheter seen within Bilateral Jets seen: No Incidental finding: Hyperechoic area with posterior shadowing within the gallbladder: 1.6 x 1.8 x 1 .0 cm. IMPRESSION: 1. No evidence for obstructive uropathy. 2. Cholelithiasis.
[2024-04-07 10:14] LABS: African American GFR (CKD) 51 (>60 ml/min/1.73 sqM); Anion Gap 6 mmol/L; Blood Urea Nitrogen 17 mg/dL (7-17); Calcium 9.6 mg/dL (8.4-10.2); Carbon Dioxide 27 mmol/L (22-30); Chloride 106 mmol/L (98-107); Glucose 114 mg/dL (74-99); Non-African American GFR(CKD) 45 (>60 ml/min/1.73 sqM); Potassium 3.4 mmol/L (3.5-5.1); Sodium 139 mmol/L (137-145)
--- NOTE | 2024-04-07 11:04 | P.PN ---
Subjective Progress Note Date: 04/06/24 Patient was seen for a follow-up. Patient continues to be very confused, restless. Patient's daughter Brittany was present. Objective - Vital Signs Vital signs: Vital Signs Temp 99.2 F 04/06/24 13:34 Pulse 87 04/06/24 13:34 Resp 16 04/06/24 13:34 BP 119/78 04/06/24 13:34 Pulse Ox 98 04/06/24 13:34 FiO2 Intake & Output 04/05/24 04/06/24 04/06/24 18:59 06:59 18:59 Output Total 225 Balance -225 Output: Urine 225 Other: Voiding Method Indwelling Catheter Indwelling Catheter Indwelling Catheter - Labs CBC & Chem 7: 04/05/24 04:06 04/07/24 09:20 Labs: Microbiology - Last 24 Hours (Table) 04/05/24 04:06 Blood Culture - Preliminary Blood Assessment and Plan Assessment: * Delirium, probably due to combination of factors including worsening anxiety, recent use of Ativan, probable worsening dementia. Patient has developed acute UTI in the hospital as well. * Confusion, aphasia, likely due to delirium, on pre-existing dementia. * Dementia, at least moderate, or moderate to severe degree. * Hypertension * Hyperlipidemia * Pacemaker Plan: * EEG was abnormal due to background slowing of moderate degree. This is suggestive of generalized cerebral dysfunction as can be seen with toxic metabolic encephalopathy or related to diffuse structural brain abnormality. Clinical correlation is recommended. No epileptiform activity was seen. * Patient cannot have MRI of the brain due to presence of pacemaker. * Agree with stopping Ativan. * Carotid Doppler, revealed less than 50% stenosis of bilateral carotid bifurcation. Antegrade flow in both vertebral arteries. * Hemoglobin A1c 5.7 * Lipid panel with cholesterol 200, LDL 121, HDL 59, triglycerides 94. Consider starting statins. * Continue aspirin. * Psychiatry also on board, initiated Seroquel 50 mg at bedtime scheduled, and 25 mg twice daily as needed. * Patient continues to be very delirious. We will start Namenda 5 mg twice daily. Patient previously had vivid dreams from Aricept. * B12 387, folate > 24.0, TSH is 5.57, with normal free T4 1.35. We will defer IM to address abnormal thyroid functions. B12 is borderline, we will start B12 oral replacement. * Patient currently on ceftriaxone for acute UTI.
[2024-04-07 14:31] VITALS: BMI 29.1
[2024-04-07] MEDS: GABAPENTIN 300 MG CAP PO STA (15:22)
--- NOTE | 2024-04-07 21:09 | P.PN ---
Subjective Progress Note Date: 04/07/24 Patient was seen for a follow-up. Patient is sleeping at this time. Sitter was present who has been with her since 4 PM and she has been sleeping. Apparently she was awake all night. Patient is having a rhythmic myoclonic jerks. Very restless. Objective - Vital Signs Vital signs: Vital Signs Temp 97.6 F 04/07/24 12:35 Pulse 83 04/07/24 12:35 Resp 16 04/07/24 12:35 BP 132/73 04/07/24 12:35 Pulse Ox 96 04/07/24 12:35 FiO2 Intake & Output 04/07/24 04/07/24 04/08/24 06:59 18:59 06:59 Output Total 425 700 Balance -425 -700 Weight 79.379 kg Output: Urine 425 700 Other: Voiding Method Indwelling Catheter Indwelling Catheter - Exam Patient sleeping at this time, having a rhythmic myoclonic jerks of the extremities. - Labs CBC & Chem 7: 04/05/24 04:06 04/07/24 09:20 Labs: Abnormal Lab Results - Last 24 Hours (Table) 04/07/24 Range/Units 09:20 Potassium 3.4 L (3.5-5.1) mmol/L Creatinine 1.10 H (0.52-1.04) mg/dL Glucose 114 H (74-99) mg/dL Microbiology - Last 24 Hours (Table) 04/05/24 04:06 Blood Culture - Preliminary Blood 04/05/24 15:59 Urine Culture - Preliminary Urine,Catheterized Gram Neg Bacilli Assessment and Plan Assessment: * Delirium, probably due to combination of factors including worsening anxiety, recent use of Ativan, probable worsening dementia. Patient has developed acute UTI in the hospital as well. * Confusion, aphasia, likely due to delirium, on pre-existing dementia. * Dementia, at least moderate, or moderate to severe degree. * Hypertension * Hyperlipidemia * Pacemaker Plan: * EEG was abnormal due to background slowing of moderate degree. This is suggestive of generalized cerebral dysfunction as can be seen with toxic metabolic encephalopathy or related to diffuse structural brain abnormality. Clinical correlation is recommended. No epileptiform activity was seen. * Patient cannot have MRI of the brain due to presence of pacemaker. * Agree with stopping Ativan. * Carotid Doppler, revealed less than 50% stenosis of bilateral carotid bifurcation. Antegrade flow in both vertebral arteries. * Hemoglobin A1c 5.7 * Lipid panel with cholesterol 200, LDL 121, HDL 59, triglycerides 94. Consider starting statins. * Continue aspirin. * Psychiatry also on board, initiated Seroquel 50 mg at bedtime scheduled, and 25 mg twice daily as needed. May need psychiatry follow-up. * Patient continues to be very delirious. We will start Namenda 5 mg twice daily. Patient previously had vivid dreams from Aricept. * B12 387, folate > 24.0, TSH is 5.57, with normal free T4 1.35. We will defer IM to address abnormal thyroid functions. B12 is borderline, we will start B12 oral replacement. * Patient currently on ceftriaxone for acute UTI. * Patient continues to be delirious. At present sleeping. Will follow in the morning.
[2024-04-07] MEDS: QUEtiapine 25 MG TAB PO SCH (22:45)
--- NOTE | 2024-04-07 23:46 | P.PN ---
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 She has been having multiple falls at least 6 during the past few weeks. Patient's functional status has been declining and family is unable to take care of her at home. Patient has been agitated and trying to get out of the bed. Otherwise patient is ambulatory. No nausea vomiting or diarrhea. Denies any recent illnesses as per family. Chest x-ray showed cardiomegaly and mild pulm vascular congestion. Cardiac BNP for CHF. Pelvic x-ray showed no acute osseous pathology. Mild degeneration changes of the hip. CT head and cervical spine showed no acute intracranial process. Nonspecific white matter changes likely secondary to chronic small vessel ischemic disease. No evidence of cervical spine fracture. Mild multilevel degenerative disc disease. Left thyroid gland with nodules some of this may have been biopsied on prior exam in 2018.. Laboratory data showed WBC 6.4 hemoglobin 12.7 and platelets 292 Sodium 140 potassium 4.0, chloride 110 bicarb is 24 BUN 18 and creatinine 1.04 and blood sugar 89 Urinalysis is negative for infection. Patient is seen and evaluated with daughters at bedside; patient continues to be confused and restless -- Has been placed on Seroquel 25 mg nightly with Seroquel 25 mg twice daily as needed for agitation and psychosis; can take Zyprexa IM Patient's condition discussed with family members in great detail; daughters are requesting a formal neurology evaluation; we will consult neurology 04/05/2024 Patient seen and examined at bedside, daughter at bedside as well Patient is awake alert pleasant and relaxed, she is mildly confused about time place and person however she could tell me she is in the hospital although she could not know which 1. She could not remember the name of her daughter but not the president. She follows commands and looks to have insight to her illness at least partially Physically she denies any specific complaints to me, she denies chest pain or dyspnea She denies abdominal pain or tenderness. No vomiting. No diarrhea. No urinary complaint. Patient has Ford catheter. Urine analysis was negative on admission No specific weakness or numbness or dizziness. She had some fever 2 days ago 101 on 04/02, currently has low-grade fever 99.7 Most likely patient has ongoing dementia complicated by mild metabolic en cephalopathy. Patient already evaluated by psychiatrist and switch her to Seroquel 25 at bedtime and as needed Hemoglobin A1c 5.7, B12 borderline 387, TSH is low but normal T4 Chest x-ray showing mild pulmonary vascular congestion suspected with cardiomegaly. CT of the brain and of the cervical spine is negative for acute process and EKG showing ventricular paced rhythm Labs reviewed showing unremarkable CBC, BMP liver enzymes. Recommend to repeat urine analysis, also will check respiratory viruses. Blood culture is ordered and is pending 04/06/2024 Patient clinically is improving, she is less confused, appropriate and answers questions as indicated No much urinary symptoms, no suprapubic tenderness Urine analysis is highly suspicious for infection, urine and blood culture pending Currently on Rocephin EEG per neurologist Seroquel increased to 50 mg per psychiatrist. Patient is on Lexapro Discussed the case with the daughter, she is agreeable with the plan 04/07/2024 Patient remains confused, more severe confused than yesterday, she does not follow commands, not answering questions, she was agitation overnight and she received Zyprexa IM x 1 also she was given Seroquel gabapentin. Not completely controlled but improved Ceftriaxone 2 g, urine culture growing gram-negative bacilli Vital stable, still has low-grade fever but improvement Labs reviewed EEG is negative Renal ultrasound showing no hydronephrosis Family at bedside discussed plan with grandma and they are agreeable Objective - Vital Signs Vital signs: Vital Signs Temp 97.6 F 04/07/24 12:35 Pulse 83 04/07/24 12:35 Resp 16 04/07/24 12:35 BP 132/73 04/07/24 12:35 Pulse Ox 96 04/07/24 12:35 FiO2 Intake & Output 04/06/24 04/07/24 04/07/24 18:59 06:59 18:59 Output Total 500 425 100 Balance -500 -425 -100 Weight 79.379 kg Output: Urine 500 425 100 Other: Voiding Method Indwelling Catheter Indwelling Catheter Indwelling Catheter - Exam -GENERAL: The patient is alert and oriented x1-2 partially, not in any acute distress. Well developed, well nourished. HEENT: Pupils are round and equally reacting to light. EOMI. No scleral icterus. No conjunctival pallor. Normocephalic, atraumatic. No pharyngeal erythema. No thyromegaly. CARDIOVASCULAR: S1 and S2 present. No murmurs, rubs, or gallops. PULMONARY: Chest is clear to auscultation, no wheezing , no crackles. ABDOMEN: Soft, nontender, nondistended, normoactive bowel sounds. No palpable organomegaly. MUSCULOSKELETAL: No joint swelling or deformity. EXTREMITIES: No cyanosis, clubbing, or pedal edema. NEUROLOGICAL: Gross neurological examination did not reveal any focal deficits. SKIN: No rashes. no petechiae. - Labs CBC & Chem 7: 04/05/24 04:06 04/07/24 09:20 Labs: Abnormal Lab Results - Last 24 Hours (Table) 04/07/24 Range/Units 09:20 Potassium 3.4 L (3.5-5.1) mmol/L Creatinine 1.10 H (0.52-1.04) mg/dL Glucose 114 H (74-99) mg/dL Microbiology - Last 24 Hours (Table) 04/05/24 04:06 Blood Culture - Preliminary Blood 04/05/24 15:59 Urine Culture - Preliminary Urine,Catheterized Gram Neg Bacilli Assessment and Plan Assessment: Altered mental status, mild most likely metabolic/toxic encephalopathy Fever, secondary to acute urinary tract infection Possible dementia Hypertension Hyperlipidemia Hypothyroidism History of pacemaker placement due to morbid type II second-degree AV block. Plan: Continue with ceftriaxone Follow-up urine culture Follow-up blood culture Psychiatry and neurology evaluation Labs and medication were reviewed.. Continue same treatment. Continue with symptomatic treatment. Resume home medication. Monitor labs and vitals. DVT and GI prophylaxis. Further recommendations as per clinical course of the patient DVT prophylaxis: Subcutaneous heparin GI Prophylaxis: Pepcid PT/OT: Pending Prognosis is guarded
--- NOTE | 2024-04-08 13:08 | P.PN ---
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 She has been having multiple falls at least 6 during the past few weeks. Patient's functional status has been declining and family is unable to take care of her at home. Patient has been agitated and trying to get out of the bed. Otherwise patient is ambulatory. No nausea vomiting or diarrhea. Denies any recent illnesses as per family. Chest x-ray showed cardiomegaly and mild pulm vascular congestion. Cardiac BNP for CHF. Pelvic x-ray showed no acute osseous pathology. Mild degeneration changes of the hip. CT head and cervical spine showed no acute intracranial process. Nonspecific white matter changes likely secondary to chronic small vessel ischemic disease. No evidence of cervical spine fracture. Mild multilevel degenerative disc disease. Left thyroid gland with nodules some of this may have been biopsied on prior exam in 2018.. Laboratory data showed WBC 6.4 hemoglobin 12.7 and platelets 292 Sodium 140 potassium 4.0, chloride 110 bicarb is 24 BUN 18 and creatinine 1.04 and blood sugar 89 Urinalysis is negative for infection. Patient is seen and evaluated with daughters at bedside; patient continues to be confused and restless -- Has been placed on Seroquel 25 mg nightly with Seroquel 25 mg twice daily as needed for agitation and psychosis; can take Zyprexa IM Patient's condition discussed with family members in great detail; daughters are requesting a formal neurology evaluation; we will consult neurology 04/05/2024 Patient seen and examined at bedside, daughter at bedside as well Patient is awake alert pleasant and relaxed, she is mildly confused about time place and person however she could tell me she is in the hospital although she could not know which 1. She could not remember the name of her daughter but not the president. She follows commands and looks to have insight to her illness at least partially Physically she denies any specific complaints to me, she denies chest pain or dyspnea She denies abdominal pain or tenderness. No vomiting. No diarrhea. No urinary complaint. Patient has Ford catheter. Urine analysis was negative on admission No specific weakness or numbness or dizziness. She had some fever 2 days ago 101 on 04/02, currently has low-grade fever 99.7 Most likely patient has ongoing dementia complicated by mild metabolic en cephalopathy. Patient already evaluated by psychiatrist and switch her to Seroquel 25 at bedtime and as needed Hemoglobin A1c 5.7, B12 borderline 387, TSH is low but normal T4 Chest x-ray showing mild pulmonary vascular congestion suspected with cardiomegaly. CT of the brain and of the cervical spine is negative for acute process and EKG showing ventricular paced rhythm Labs reviewed showing unremarkable CBC, BMP liver enzymes. Recommend to repeat urine analysis, also will check respiratory viruses. Blood culture is ordered and is pending 04/06/2024 Patient clinically is improving, she is less confused, appropriate and answers questions as indicated No much urinary symptoms, no suprapubic tenderness Urine analysis is highly suspicious for infection, urine and blood culture pending Currently on Rocephin EEG per neurologist Seroquel increased to 50 mg per psychiatrist. Patient is on Lexapro Discussed the case with the daughter, she is agreeable with the plan 04/07/2024 Patient remains confused, more severe confused than yesterday, she does not follow commands, not answering questions, she was agitation overnight and she received Zyprexa IM x 1 also she was given Seroquel gabapentin. Not completely controlled but improved Ceftriaxone 2 g, urine culture growing gram-negative bacilli Vital stable, still has low-grade fever but improvement Labs reviewed EEG is negative Renal ultrasound showing no hydronephrosis Family at bedside discussed plan with grandma and they are agreeable 04/08/2024 Patient mentation improved significantly, she is awake and alert and appropriate, she is relaxed and nice. She still mildly confused and needs redirection, Dr. Moffett at bedside and she agrees. Patient with no significant pain Still on Rocephin 2 g for UTI, culture growing sensitive E. coli Fever today around 100 Will going to consult ID team Possible discharge in 24 to 48 hours if she keeps improving Patient to be discharged to rehab, patient and daughter at bedside agreeable Objective - Vital Signs Vital signs: Vital Signs Temp 98.1 F 04/08/24 07:44 Pulse 79 04/08/24 07:44 Resp 17 04/08/24 07:44 BP 153/75 04/08/24 07:44 Pulse Ox 95 04/08/24 07:44 FiO2 Intake & Output 04/07/24 04/08/24 04/08/24 18:59 06:59 18:59 Output Total 700 650 Balance -700 -650 Weight 79.379 kg Output: Urine 700 650 Other: Voiding Method Indwelling Catheter Indwelling Catheter Indwelling Catheter - Exam -GENERAL: The patient is alert and oriented x1-2 partially, not in any acute distress. Well developed, well nourished. HEENT: Pupils are round and equally reacting to light. EOMI. No scleral icterus. No conjunctival pallor. Normocephalic, atraumatic. No pharyngeal erythema. No thyromegaly. CARDIOVASCULAR: S1 and S2 present. No murmurs, rubs, or gallops. PULMONARY: Chest is clear to auscultation, no wheezing , no crackles. ABDOMEN: Soft, nontender, nondistended, normoactive bowel sounds. No palpable organomegaly. MUSCULOSKELETAL: No joint swelling or deformity. EXTREMITIES: No cyanosis, clubbing, or pedal edema. NEUROLOGICAL: Gross neurological examination did not reveal any focal deficits. SKIN: No rashes. no petechiae. - Labs CBC & Chem 7: 04/05/24 04:06 04/07/24 09:20 Labs: Microbiology - Last 24 Hours (Table) 04/05/24 04:06 Blood Culture - Preliminary Blood 04/05/24 15:59 Urine Culture - Final Urine,Catheterized Escherichia coli Assessment and Plan Assessment: Altered mental status, mild most likely metabolic/toxic encephalopathy Fever, secondary to acute urinary tract infection. Secondary to sensitive E. coli Possible dementia Hypertension Hyperlipidemia Hypothyroidism History of pacemaker placement due to morbid type II second-degree AV block. Plan: Continue with ceftriaxone Urine culture noted Consult ID team Follow-up blood culture Psychiatry and neurology evaluation Labs and medication were reviewed.. Continue same treatment. Continue with symptomatic treatment. Resume home medication. Monitor labs and vitals. DVT and GI prophylaxis. Further recommendations as per clinical course of the patient DVT prophylaxis: Subcutaneous heparin GI Prophylaxis: Pepcid PT/OT: Possible discharge to rehab in 24 to 48 hours Prognosis is guarded
--- NOTE | 2024-04-08 22:12 | P.CONS ---
History of Present Illness - Reason for Consult Consult date: 04/08/24 Fever Requesting physician: Richard E Sheet - Chief Complaint Weakness x few days - History of Present Illness Patient is a 89-year-old female with a past medical history significant for hypertension hyperlipidemia reflux dementia presented to the hospital 8 days ago on 03/31/2024 for evaluation of worsening functional status at home and unable to be cared at home patient on presentation to the hospital was afebrile however the patient started spiking fever as of 04/02/2024 when she did have a temperature of 101.7 F subsequent did have low-grade fever last tem perature has been 100.1 around 3 AM patient did have a normal white count but the last CBC on 04/05/2024 creatinine is 1.10 patient did have a normal UA on admission however repeat UA on 04/22/2024 was significantly positive with large leukocyte esterase more than 182 WBC influenza RSV COVID testing was negative urine culture came back positive with E. coli that is a sensitive pathogen blood culture has been negative patient did have a chest x-ray on 03/31/2024 cardiomegaly with mild pulmonary vascular congestion patient did have a renal ultrasound with no evidence of any obstructive uropathy and cholelithiasis infectious he was consulted for the patient continued to have a fever despite being on Rocephin patient at time my evaluation denies having any fever or any chills denies any chest pain shortness of breath or cough no nausea vomiting or any diarrhea patient did have Ford catheter has been discontinued Review of Systems Positive point and negatives has been mentioned in the HPI, complete review of systems was performed and all other systems are negative Past Medical History Past Medical History: Dementia, GERD/Reflux, Hyperlipidemia, Hypertension, Thyroid Disorder Additional Past Medical History / Comment(s): mobitz type 2 second degree heart block, vertigo other hx per old chart: incont of urine, hiatal hernia, rectocele/cystocele, MURMUR, HIATAL HERNIA,EARLY DEMENTIA, WAS TOLD 2 YEARS AGO HAD VERY BEGINNINGS OF GLAUCOMA, COVID History of Any Multi-Drug Resistant Organisms: None Reported Past Surgical History: Bladder Surgery, Heart Catheterization, Hysterectomy, Pacemaker Additional Past Surgical History / Comment(s): pacemaker-2014 Past Anesthesia/Blood Transfusion Reactions: No Reported Reaction Additional Past Anesthesia/Blood Transfusion Reaction / Comm: 40 YEARS AGO BLOOD TRANSFUSION AFTER CHILDBIRTH, VERTIGO Type of Cardiac Device: Permanent Pacemaker Device Placement Date:: 2014 Past Psychological History: No Psychological Hx Reported, Anxiety Smoking Status: Former smoker Past Alcohol Use History: None Reported Past Drug Use History: None Reported - Past Family History Father Family Medical History: Cancer Additional Family Medical History / Comment(s): COLON CANCER Mother Family Medical History: Congestive Heart Failure (CHF), Myocardial Infarction (NH) Medications and Allergies Home Medications Medication Instructions Recorded Confirmed Type Levothyroxine Sodium [Synthroid] 88 mcg PO DAILY 09/17/14 03/31/24 History Aspirin 81 mg PO DAILY 05/03/15 03/31/24 History Lisinopril-Hctz 10-12.5 mg 1 tab PO DAILY 05/03/15 03/31/24 History [Zestoretic 10-12.5] Escitalopram Oxalate [Lexapro] 10 mg PO BID 05/31/22 03/31/24 History Cetirizine HCl [Zyrtec] 10 mg PO DAILY 03/31/24 03/31/24 History Cholestyramine (with Sugar) 4 gm PO DAILY 03/31/24 03/31/24 History [Cholestyramine Packet] Acetaminophen Tab [Tylenol] 650 mg PO Q6HR PRN tab 04/09/24 Rx Cyanocobalamin [Vitamin B-12] 1,000 mcg PO DAILY tab 04/09/24 Rx Melatonin 10 mg PO HS PRN tab 04/09/24 Rx Memantine [Namenda] 5 mg PO BID tab 04/09/24 Rx QUEtiapine [SEROquel] 25 mg PO BID PRN 7 Days #6 tab 04/09/24 Rx QUEtiapine [SEROquel] 50 mg PO HS 7 Days #14 tab 04/09/24 Rx Tamsulosin [Flomax] 0.4 mg PO PC-[id number] cap 04/09/24 Rx cefUROXime axetiL [Ceftin] 500 mg PO BID 7 Days #14 tab 04/09/24 Rx Allergies Allergy/AdvReac Type Severity Reaction Status Date / Time Sulfa (Sulfonamide Allergy Unknown Verified 03/31/24 14:47 Antibiotics) Iodinated Contrast Media AdvReac Abdominal Verified 03/31/24 14:47 [Iodinated Contrast Media - Pain IV Dye] shellfish derived AdvReac Abdominal Verified 03/31/24 14:47 Pain Physical Exam Vitals: Vital Signs Temp Pulse Resp BP Pulse Ox 04/08/24 07:44 98.1 F 79 17 153/75 95 04/08/24 03:18 100.1 F H 86 13 165/76 94 L 04/07/24 23:39 97.9 F 93 18 158/79 Intake and Output 04/07/24 04/08/24 04/08/24 22:59 06:59 14:59 Output Total 600 650 Balance -600 -650 Output: Urine 600 650 Other: Voiding Method Indwelling Catheter Indwelling Catheter GENERAL DESCRIPTION: Elderly female lying in bed, no distress. No tachypnea or accessory muscle of respiration use. HEENT: Shows Pallor , no scleral icterus. Oral mucous membrane is dry. No pharyngeal erythema or thrush NECK: Trachea central, no thyromegaly. LUNGS: Unlabored breathing. Clear to auscultation anteriorly. No wheeze or crackle. HEART: S1, S2, regular rate and rhythm. No loud murmur ABDOMEN: Soft, no tenderness , guarding or rigidity, no organomegaly EXTREMITIES: No edema of feet. SKIN: No rash, no masses palpable. NEUROLOGICAL: The patient is awake, alert, mood and affect normal. Results CBC & Chem 7: 04/05/24 04:06 04/07/24 09:20 Labs: Microbiology - Last 24 Hours (Table) 04/05/24 04:06 Blood Culture - Preliminary Blood 04/05/24 15:59 Urine Culture - Final Urine,Catheterized Escherichia coli Assessment and Plan (1) Fever Current Visit: Yes Status: Acute Code(s): R50.9 - FEVER, UNSPECIFIED SNO MED Code(s): 220536634 (2) Urinary tract infection Current Visit: Yes Status: Acute Code(s): N39.0 - URINARY TRACT INFECTION, SITE NOT SPECIFIED SNOMED Code(s): 90123241 Plan: 1patient with a low-grade fever more likely related to UTI possible pyelonephritis and it is common to have fever for few days despite being on the correct antibiotic therapy patient seem to be clinically improving white count has been normal and no other obvious focus of infection. 2we will give the patient Rocephin 2 g daily while inpatient however patient can be transitioned over antibiotic once the patient is afebrile for 24 hours discharge antibiotic form of Ceftin Family at the bedside questions answered We will follow on clinical condition and cultures to further adjust medication if needed Thank you for this consultation we will follow the patient along with you Dictation was produced using Eye[employer] dictation software. please excuse any gr ammatical, word or spelling errors. Time with Patient: Greater than 30
[2024-04-09 08:36] VITALS: PULSE 79
--- NOTE | 2024-04-09 10:58 | P.PN ---
Subjective Progress Note Date: 04/08/24 Patient was seen for a follow-up. Patient has multiple daughters and son were present. Patient is doing remarkably better. She is talking, not agitated. At 10:30 AM she ate her breakfast. Family believes that she is about 60 to 70% improved and back to baseline. Patient denies any headache. Patient is very comfortable, smiling, giving flying kisses. Objective - Vital Signs Vital signs: Vital Signs Temp 98.4 F 04/08/24 14:00 Pulse 84 04/08/24 14:00 Resp 17 04/08/24 14:00 BP 127/67 04/08/24 14:00 Pulse Ox 96 04/08/24 14:00 FiO2 Intake & Output 04/07/24 04/08/24 04/08/24 18:59 06:59 18:59 Output Total 700 650 Balance -700 -650 Weight 79.379 kg Output: Urine 700 650 Other: Voiding Method Indwelling Catheter Indwelling Catheter Indwelling Catheter - Exam Patient is fully alert and awake. Patient is very pleasant, smiling, denies headache. No more agitation. No hallucinations. Mentation much improved. - Labs CBC & Chem 7: 04/05/24 04:06 04/07/24 09:20 Labs: Microbiology - Last 24 Hours (Table) 04/05/24 04:06 Blood Culture - Preliminary Blood 04/05/24 15:59 Urine Culture - Final Urine,Catheterized Escherichia coli Assessment and Plan Assessment: * Delirium, much improved. * Confusion, aphasia, likely due to delirium, on pre-existing dementia. * Acute UTI * Dementia, at least moderate, or moderate to severe degree. * Hypertension * Hyperlipidemia * Pacemaker Plan: * Patient's mentation has remarkably improved. The delirium has almost r esolved. She continues to be pleasantly confused related to her dementia. Family believes she is about 60 to 70% back to baseline. * Patient has E. coli UTI. Currently on ceftriaxone. * EEG was abnormal due to background slowing of moderate degree. This is suggestive of generalized cerebral dysfunction as can be seen with toxic metabolic encephalopathy or related to diffuse structural brain abnormality. Clinical correlation is recommended. No epileptiform activity was seen. * Patient cannot have MRI of the brain due to presence of pacemaker. * Agree with stopping Ativan. * Carotid Doppler, revealed less than 50% stenosis of bilateral carotid bifurcation. Antegrade flow in both vertebral arteries. * Hemoglobin A1c 5.7 * Lipid panel with cholesterol 200, LDL 121, HDL 59, triglycerides 94. Consider starting statins. * Continue aspirin. * Psychiatry also on board, initiated Seroquel 50 mg at bedtime scheduled, and 25 mg twice daily as needed. May need psychiatry follow-up. * Patient continues to be very delirious. We will start Namenda 5 mg twice daily. Patient previously had vivid dreams from Aricept. * B12 387, folate > 24.0, TSH is 5.57, with normal free T4 1.35. We will defer IM to address abnormal thyroid functions. B12 is borderline, we will start B12 oral replacement. * Neurologically clear for transfer/discharge, if remains stable overnight, and when medically stable.
--- NOTE | 2024-04-09 13:40 | P.DS ---
Providers Date of admission: 03/31/24 16:51 Attending physician: Artur Shelton Consults: 03/31/24 16:50 Consult Physician Routine Consulting Provider: Gildardo Barker Consult Reason/Comments: dementia agitation Do you want consulting provider notified?: Already Contacted 04/04/24 13:46 Consult Physician Routine Consulting Provider: Juwan Browning Consult Reason/Comments: AMS, sharp decline from baseline. Do you want consulting provider notified?: Yes 04/05/24 12:55 Consult Physician Routine Consulting Provider: Gildardo Barker Consult Reason/Comments: needs follow up regarding your medication adjustments. Do you want consulting provider notified?: Already Contacted 04/08/24 13:05 Consult Physician Routine Consulting Provider: Deborah Schmidt Consult Reason/Comments: uti with fever Do you want consulting provider notified?: Yes Primary care physician: Tere Ortiz Hospital Course: Diagnoses: Altered mental status, mild most likely metabolic/toxic encephalopathy Fever, secondary to acute urinary tract infection. Secondary to sensitive E. 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 She has been having multiple falls at least 6 during the past few weeks. Patient's functional status has been declining and family is unable to take care of her at home. Patient was severely confused secondary to her acute urinary tract infection and fever. Patient has been evaluated by neurologist and psychiatrist, workup was unremarkable She was placed on Seroquel 50 mg at bedtime and 25 mg twice daily as needed. This was discontinued as patient currently back to her baseline and she is awake and alert with no more confusion to decrease the possibility of side effect however they can be considered later on and if she needs. Patient was treated with Rocephin for her UTI/E. coli. Patient showed interval improvement. Fever subsided. Patient will be discharged on short course of antibiotic Problems and management plan were discussed with the patient and he verbalized understanding and acceptance Patient was found stable and can be discharged home in guarded prognosis however he needs follow-up as an outpatient. Patient was instructed to follow up with PCP within one week and patient agrees Physical exam Gen: patient is a AAOx3, no distress CVS: S1-S2, RRR, no murmur Lungs: B/L CTA, no wheezing Abdomen: soft, no distention, no tenderness, positive bowel sounds Extremity: no leg edema or induration Time spent more than 35 minutes Patient Condition at Discharge: Stable Plan - Discharge Summary Discharge Rx Participant: Yes New Discharge Prescriptions: New Melatonin 10 mg PO HS PRN tab PRN Reason: Insomnia Memantine [Namenda] 5 mg PO BID tab Acetaminophen Tab [Tylenol] 650 mg PO Q6HR PRN tab PRN Reason: Mild Pain Or Fever > 100.5 Cyanocobalamin [Vitamin B-12] 1,000 mcg PO DAILY tab Continue Levothyroxine Sodium [Synthroid] 88 mcg PO DAILY Lisinopril-Hctz 10-12.5 mg [Zestoretic 10-12.5] 1 tab PO DAILY Aspirin 81 mg PO DAILY Escitalopram Oxalate [Lexapro] 10 mg PO BID Cetirizine HCl [Zyrtec] 10 mg PO DAILY Cholestyramine (with Sugar) [Cholestyramine Packet] 4 gm PO DAILY Discontinued LORazepam [Ativan] 0.5 mg PO BID PRN PRN Reason: Anxiety Discharge Medication List Levothyroxine Sodium [Synthroid] 88 mcg PO DAILY 09/17/14 [History] Aspirin 81 mg PO DAILY 05/03/15 [History] Lisinopril-Hctz 10-12.5 mg [Zestoretic 10-12.5] 1 tab PO DAILY 05/03/15 [History] Escitalopram Oxalate [Lexapro] 10 mg PO BID 05/31/22 [History] Cetirizine HCl [Zyrtec] 10 mg PO DAILY 03/31/24 [History] Cholestyramine (with Sugar) [Cholestyramine Packet] 4 gm PO DAILY 03/31/24 [History] Acetaminophen Tab [Tylenol] 650 mg PO Q6HR PRN tab 04/09/24 [Rx] Cyanocobalamin [Vitamin B-12] 1,000 mcg PO DAILY tab 04/09/24 [Rx] Melatonin 10 mg PO HS PRN tab 04/09/24 [Rx] Memantine [Namenda] 5 mg PO BID tab 04/09/24 [Rx] Follow up Appointment(s)/Referral(s): Tiffany, [NON-STAFF] - As Needed Tere Ortiz MD [Primary Care Provider] - 1-2 days Activity/Diet/Wound Care/Special Instructions: regular diet activity as tolerated Discharge Disposition: TRANSFER TO SNF/ECF
[2024-04-09] MEDS ORDERED: TAMSULOSIN 0.4 MG CAP.ER.24H PO SCH (14:15)
[2024-04-09 14:23] VITALS: BP 122/68; RESP 16; TEMP 97.9
[2024-04-09] MEDS: POTASSIUM CHLORIDE ER 20 MEQ TAB.ER PO STA (15:00)
--- NOTE | 2024-04-09 16:24 | P.PN ---
Subjective Progress Note Date: 04/09/24 Principal diagnosis: Reason for follow-up is E. coli UTI possible pyelonephritis Patient is a 89-year-old female with a past medical history significant for hypertension hyperlipidemia reflux dementia presented to the hospital 9 days ago on 03/31/2024 for evaluation of worsening functional status at home and unable to be cared at home, but did have a fever on 04/02/2024 did have a urine cultures come positive with E. coli blood culture has been negative persistent fever prompting this consultation. On today's evaluation that is 04/09/2024, Patient is afebrile for more than 24 hours now patient is currently on room air and denies having any shortness of breath, the patient denies any chest pain or cough, the patient denies any nausea vomiting did not have any abdominal pain and no diarrhea, feeling better. No new labs were drawn today blood culture has been negative Objective - Vital Signs Vital signs: Vital Signs Temp 97.6 F 04/09/24 07:36 Pulse 79 04/09/24 07:36 Resp 18 04/09/24 07:36 BP 114/71 04/09/24 07:36 Pulse Ox 95 04/09/24 07:36 FiO2 Intake & Output 04/08/24 04/09/24 04/09/24 18:59 06:59 18:59 Output Total 500 1250 Balance -500 -1250 Output: Urine 500 1250 Straight 600 Other: Voiding Method Indwelling Catheter - Exam GENERAL DESCRIPTION: An elderly female lying in bed in no distress RESPIRATORY SYSTEM: Unlabored breathing , decreased breath sounds at bases HEART: S1 S2 regular rate and rhythm , ABDOMEN: Soft , no tenderness EXTREMITIES: No edema feet - Labs CBC & Chem 7: 04/05/24 04:06 04/07/24 09:20 Labs: Microbiology - Last 24 Hours (Table) 04/05/24 04:06 Blood Culture - Preliminary Blood Assessment and Plan (1) Urinary tract infection Current Visit: Yes Status: Acute Code(s): N39.0 - URINARY TRACT INFECTION, SITE NOT SPECIFIED SNOMED Code(s): 07496876 (2) Fever Current Visit: Yes Status: Acute Code(s): R50.9 - FEVER, UNSPECIFIED SNOMED Code(s): 379703122 Plan: 1patient with a low-grade fever more likely related to UTI possible pyelonephritis and it is common to have fever for few days despite being on the correct antibiotic therapy patient seem to be clinically improving white count has been normal and no other obvious focus of infection. 2patient did have resolution of her fever with no fever for more than 24 hours now we will finish therapy with Ceftin 500 mg twice a day for 7 days discussed with admitting team Family at the bedside questions answered Dictation was produced using [employer] dictation software. please excuse any grammatical, word or spelling errors. Time with Patient: Less than 30
== END 2024-04-09 17:17 | DRG 689 ==
LOC: EC 13:03 → 4SSUR 16:51
PROVIDERS: ADMIT Internal Medicine; ATTEND Internal Medicine
DX: N39.0 Urinary tract infection, site not specified (principal); G92.8 Other toxic encephalopathy; F03.911 Unspecified dementia, unspecified severity, with agitation; F03.94 Unspecified dementia, unspecified severity, with anxiety; R47.01 Aphasia; F05 Delirium due to known physiological condition; B96.20 Unspecified Escherichia coli [E. coli] as the cause of diseases classified elsewhere; E03.9 Hypothyroidism, unspecified; E78.5 Hyperlipidemia, unspecified; K44.9 Diaphragmatic hernia without obstruction or gangrene; K21.9 Gastro-esophageal reflux disease without esophagitis; R32 Unspecified urinary incontinence; I44.1 Atrioventricular block, second degree; G25.3 Myoclonus; I10 Essential (primary) hypertension; E04.1 Nontoxic single thyroid nodule; R33.9 Retention of urine, unspecified; Z60.2 Problems related to living alone; M50.30 Other cervical disc degeneration, unspecified cervical region; H40.9 Unspecified glaucoma; R29.6 Repeated falls; Z91.81 History of falling; Z86.16 Personal history of COVID-19; Z95.0 Presence of cardiac pacemaker; Z79.899 Other long term (current) drug therapy; Z79.82 Long term (current) use of aspirin; Z79.890 Hormone replacement therapy; Z87.891 Personal history of nicotine dependence; Z88.2 Allergy status to sulfonamides; Z91.041 Radiographic dye allergy status; Z91.013 Allergy to seafood
CPT/HCPCS: 36415; 70450; 71046; 72125; 72170; 76770; 80048; 81001; 81003; 82607; 82747; 83036; 84439; 84443; 85025; 87040; 87077; 87086; 87186; 87636; 93005; 93880; 95816; 96374; 99285